=== PATIENT | male | born 1935 ===

== ENCOUNTER 2017-01-30 18:56 | Inpatient (IN) | payer MEDICARE ==
[2017-01-30 19:48] LABS: BASO # 0.1 K/uL (0.0-0.2); BASO % 0.3 % (0.0-2.0); HEMATOCRIT 47.2 % (35.0-51.0); LYMPH # 0.5 K/uL (1.0-4.3); LYMPH % 2.7 % (20.0-40.0); MEAN CELL VOLUME 90.6 fl (80.0-94.0); MEAN CORPUSCULAR HEMOGLOBIN 30.2 pg (27.0-31.0); MEAN CORPUSCULAR HGB CONC 33.3 g/dL (33.0-37.0); MEAN PLATELET VOLUME 9.5 fl (7.2-11.7); MONO % 5.1 % (0.0-10.0); NEUT # 18.2 K/uL (1.8-7.0); NEUT % 91.9 % (50.0-75.0); PLATELET COUNT 253 K/uL (130-400); RED CELL DISTRIBUTION WIDTH 15.1 % (11.5-14.5); WHITE BLOOD COUNT 19.8 K/uL (4.8-10.8)
[2017-01-30 19:49] LABS: RBC URINE 6 /hpf (0-3); URINE BACTERIA RARE (<OCC); URINE BILIRUBIN NEGATIVE (NEGATIVE); URINE BLOOD SMALL (NEGATIVE); URINE COLOR YELLOW (YELLOW); URINE GLUCOSE (UA) >=500 mg/dL (Normal); URINE KETONE 80 mg/dL (NEGATIVE); URINE LEUKOCYTE ESTERASE NEG Leu/uL (Negative); URINE PROTEIN 100 mg/dL (NEGATIVE); URINE UROBILINOGEN 0.2-1.0 mg/dL (0.2-1.0); WBC URINE 2 /hpf (0-5)
[2017-01-30 19:54] LABS: ALKALINE PHOSPHATASE 96 U/L (38-126); ALT/SGPT 29 U/L (21-72); AST/SGOT 41 U/L (17-59); BLOOD UREA NITROGEN 31 mg/dl (9-20); CALCIUM 8.9 mg/dL (8.4-10.2); CARBON DIOXIDE 25 mmol/L (22-30); CHLORIDE 95 mmol/L (98-107); GFR AFRICAN-AMERICAN > 60; POTASSIUM 3.7 MMOL/L (3.6-5.0); SODIUM 141 mmol/l (132-148); TOTAL PROTEIN 7.9 G/DL (6.3-8.2)
[2017-01-30 19:56] LABS: GLUCOSE,RANDOM 432 mg/dL (75-110)
[2017-01-30] MEDS ORDERED: Insulin Regular 100 units/ml ONE (20:01)
[2017-01-30] MEDS ORDERED: Sodium Chloride 0.9% 500 ML IV STA (20:03)
[2017-01-30] MEDS ORDERED: Insulin Regular 100 units/ml IV ONE (20:03)
[2017-01-30 20:23] LABS: PARTIAL THROMBOPLASTIN TIME 28.3 SECONDS (23.3-32.5)
[2017-01-30 20:29] LABS: NEUTROPHIL 93 % (42-75); REACTIVE LYMPHOCYTES 1 % (0-0); TOTAL CELLS COUNTED 100
--- NOTE | 2017-01-30 20:29 | ED PDOC ---
HPI: Back Time Seen by Provider: 01/30/17 19:15 Chief Complaint (Nursing): Back Pain Chief Complaint (Provider): Back Pain History Per: Patient, EMS History/Exam Limitations: no limitations Onset/Duration Of Symptoms: Days (today) Current Symptoms Are (Timing): Still Present Quality Of Discomfort: Unable To Describe Severity: Moderate Associated Symptoms: None Additional Complaint(s): Duong Gutierrez is a 81 year old male, with a past medical history inclusive of HTN, hypercholesterolemia, hyperlipidemia, type II diabetes, Parkinson's Disease, dementia, and bipolar disorder who presents to the ED on 01/30/17, via EMS, for the evaluation of moderate, left-sided low back pain that he has experienced since having fallen out of his recliner approximately 18 hours prior to arrival. Patient reports having fallen onto his left side and that he had been unable to get up on his own, stating that he was on the ground until his ex- found him 2 hours ago and called EMS, who then responded 1 hour later. Upon arrival in the ED patient is ambulatory and is requesting a meal. Denies head injury, loss of consciousness, fever, chills, chest pain, shortness of breath, nausea, vomiting or diarrhea. Of note, patient lives alone and ambulates with a cane at baseline. Otherwise he is independent. PMD: Misael Tenorio Past Medical History Reviewed: Historical Data, Nursing Documentation, Vital Signs Vital Signs: Last Vital Signs Temp 98.1 F 01/30/17 19:00 Pulse 107 H 01/30/17 19:00 Resp 20 01/30/17 19:00 BP 158/90 H 01/30/17 19:00 Pulse Ox 99 01/30/17 19:00 - Medical History PMH: Anxiety, Benign Prostatic Hyperplasia, Bipolar Disorder, Dementia, Depression, Diabetes (type II), HTN, Hypercholesterolemia, Hyperlipidemia, Parkinson's Disease Denies: Hepatitis, HIV, Chronic Kidney Disease, Seizures, Sexually Transmitted Disease - Family History Family History: States: Unknown Family Hx - Living Arrangements Living Arrangements: Alone - Immunization History Hx Tetanus Toxoid Vaccination: No Hx Influenza Vaccination: Yes Hx Pneumococcal Vaccination: No - Home Medications Home Medications: Ambulatory Orders Medication Instructions Recorded Famotidine [Pepcid] 20 mg PO HS #20 tab 06/03/14 Allopurinol 100 mg PO DAILY #14 tab 11/14/14 Carbidopa/Levodopa 25/100 CR 25 mg PO QID #28 tab 11/14/14 [Sinemet CR] Rivastigmine 9.5 mg/24 hr [Exelon 9.5 mg TD DAILY #14 patch 11/14/14 9.5 mg/24 hr Patch] Valsartan 160 mg PO DAILY #14 tab 11/14/14 metFORMIN [glucOPHAGE] 850 mg PO DAILY #0 tab 11/14/14 Aspirin [Aspirin EC] 81 mg PO DAILY #14 ect 12/06/14 Atorvastatin Calcium [Lipitor] 20 mg PO HS #14 tab 12/06/14 Colchicine 0.6 mg PO DAILY #14 tab 12/06/14 Tamsulosin [Flomax] 0.4 mg PO DAILY #14 cap 12/06/14 Valsartan [Diovan] 160 mg PO DAILY #14 tab 12/06/14 amLODIPine [Norvasc] 5 mg PO DAILY #14 tab 12/06/14 traZODone [Desyrel] 50 mg PO HS #14 tab 12/06/14 Divalproex [Depakote DR (*BID*)] 250 mg PO BID #60 ect 01/13/17 Ergocalciferol [Drisdol 50,000 1 cap PO QWK cap 01/13/17 Intl Units Cap] QUEtiapine [Seroquel] 100 mg PO HS #30 tab 01/13/17 - Allergies Allergies/Adverse Reactions: Allergies Allergy/AdvReac Type Severity Reaction Status Date / Time No Known Allergies Allergy Unverified 06/03/14 12:27 Review of Systems ROS Statement: Except As Marked, All Systems Reviewed And Found Negative Constitutional: Negative for: Fever, Chills Cardiovascular: Negative for: Chest Pain Respiratory: Negative for: Shortness of Breath Gastrointestinal: Negative for: Nausea, Vomiting, Diarrhea Musculoskeletal: Positive for: Back Pain (left-sided low back pain) Neurological: Negative for: Altered Mental Status (no LOC) Physical Exam - Reviewed Nursing Documentation Reviewed: Yes Vital Signs Reviewed: Yes - Physical Exam Appears: Positive for: Non-toxic, No Acute Distress Head Exam: Positive for: ATRAUMATIC, NORMOCEPHALIC Skin: Positive for: Normal Color, Warm, Dry Neck: Positive for: Normal, Painless ROM, Supple Cardiovascular/Chest: Positive for: Regular Rate, Rhythm. Negative for: Murmur Respiratory: Positive for: Normal Breath Sounds. Negative for: Respiratory Distress Gastrointestinal/Abdominal: Positive for: Normal Exam, Soft. Negative for: Tenderness Back: Positive for: Other (mild left paralumbar tenderness (region of L4-L5)). Negative for: Vertebral Tenderness Extremity: Positive for: Normal ROM (moving all extremities). Negative for: Deformity Neurologic/Psych: Positive for: Alert, Oriented. Negative for: Motor/Sensory Deficits (no new onset) - Laboratory Results Result Diagrams: 01/31/17 05:30 01/31/17 05:30 - ECG O2 Sat by Pulse Oximetry: 99 (RA) Pulse Ox Interpretation: Normal - Radiology X-Ray: Interpreted by Me, Viewed By Me X-Ray Interpretation: No Acute Disease - CT Scan/US CT Lumbar Spine Other Rad Studies (CT/US): Read By Radiologist, Radiology Report Reviewed Other Rad Interpretation: mild degenerative change, no fracture Medical Decision Making Medical Decision Makin:15 Initial Impression: 81 year old male with low back pain in setting of fall Initial Plan: * CT Lumbar Spine w/o contrast * Labs * CPK * PTT * PT * Udip * Urinalysis * Reevaluation 21:16 CT Lumbar Spine report reviewed: degenerative change, no fracture. See full report for further details of study. 22:17 Labs reviewed, no clinically significant abnormalities though CK level is moderately elevated, possibly indicative of early/mild rhabdomyolysis. Patient is also mildly hyperglycemic, probably secondary to his inability to take his insulin since fall. Blood sugar improved with administration of IV hydration and Insulin within the ED. Leukocytosis with left shift also noted. Upon interview patient denies fever but reports having experienced a cough last week. CXR added to ED workup shows no acute disease. Given multiple mild derangements in laboratory studies patient will be hospitalized on Observation status. His PMD is Dr. Ming Tenorio, but case has been referred to Dr. Bauer. Plan has been discussed with patient, who is in agreement. Condition fair. Clinical Impression: mild rhabdomyolysis, leukocytosis, hyperglycemia Scribe Attestation: Documented by Viv Mcgill, acting as a scribe for Evan Oconnor MD. Provider Scribe Attestation: All medical record entries made by the Scribe were at my direction and personally dictated by me. I have reviewed the chart and agree that the record accurately reflects my personal performance of the history, physical exam, medical decision making, and the department course for this patient. I have also personally directed, reviewed, and agree with the discharge instructions and disposition. Disposition - Clinical Impression Clinical Impression: Elevated lactic acid level, Hyperglycemia, Dementia, Low back pain, Rhabdomyolysis - Patient ED Disposition Is Patient to be Admitted: Yes Discussed With DrMihaela: Dex Bauer Counseled Patient/Family Regarding: Studies Performed, Diagnosis - Disposition Disposition Time: 22:17 Condition: STABLE - Pt Status Changed To: Hospital Disposition Of: Observation
--- NOTE | 2017-01-30 21:16 | CT ---
EXAM: CT Lumbar Spine Without Intravenous Contrast. CLINICAL HISTORY: 81 years old, male; Pain; Low back pain TECHNIQUE: Axial computed tomography images of the lumbar spine without intravenous contrast. This CT exam was performed using one or more of the following dose reduction techniques: automated exposure control, adjustment of the mA and/or kV according to patient size, and/or use of iterative reconstruction technique. Coronal and sagittal reformatted images were created and reviewed. EXAM DATE/TIME: 01/30/2017 7:53 PM COMPARISON: There are no prior studies for comparison. FINDINGS: Vertebrae, discs/spinal canal/neural foramina: Bony structures are osteopenic. There is a degenerative convex right lumbar curve apex at L2-3. There are no lumbar fractures. T11-12, T12-L1 and L1-L2 disc spaces are normal in height. There is narrowing of the L2-3 disc space greatest on the left. There is endplate irregularity with subchondral cysts. There are bulky osteophytes L2-3 on the left. There is degenerative disc disease L3-4 with vacuum phenomenon. There is asymmetric disc space narrowing L4-5 greatest on the right. There is marked L5-S1 disc space narrowing. There are degenerative osteophytes at multiple levels. There is degenerative facet disease greatest L3-4, L4-5.. There is sclerosis at the sacroiliac joints. There is partial ankylosis of the right sacroiliac joint. Soft tissues: Psoas and paraspinous muscles are symmetric. Vasculature: There are vascular calcifications. Stomach and bowel: There is a radiopaque foreign body stool in the rectum. IMPRESSION: Degenerative change, no fracture
[2017-01-30] MEDS: Sodium Chloride 0.9% 1,000 ML IV STA (22:50)
--- NOTE | 2017-01-30 22:52 | CP.PCM.HP ---
History of Present Illness - History of Present Illness History of Present Illness: PCP: Ming Tenorio MD Chief complaint: fall/ Back trauma HPI: 81 years old male who lives alone and uses a cane to ambulate, with hx of DM II, Bipolar I disorder, dementia, Unsteady gait, Multiple falls with Parkinson's disease is brought to the ED after falling off his his recliner 18 hrs prior,and could not get up, receiving trauma to the left lower back. The pain is moderate , non radiating and the patient did not take any analgesics. his ex was able to assist him off the floor. He denies LOC, headache, dizziness, fever, chills, Chest pain, palpitation, SOB, nausea, vomits, diarrhea , urinary symptoms. PMH: Anxiety, BPH, Bipolar 1 Disorder, Dementia, Depression, HTN, HLD, Parkinson's Disease, Multiple falls, Unsteady gait, gout. PSH: Unknown Family Hx SH: lives alone, No cigarette smoking; No ETOH: No Illegal drugs. FH: No known familu History Allergies: NKDA - Present on Admission - Present on Admission Any Indicators Present on Admission: Yes History of DVT/PE: No History of Uncontrolled Diabetes: Yes Urinary Catheter: No Decubitus Ulcer Present: No Review of Systems - Constitutional Constitutional: Lethargy. absent: Anorexia, Chills, Fatigue, Fever, Frequent Falls, Headache - EENT Eyes: Requires Corrective Lenses. absent: Diplopia, Floaters, Photophobia, Sees Flashes Ears: absent: Decreased Hearing, Ear Discharge, Ear Pain, Tinnitus Nose/Mouth/Throat: absent: Epistaxis, Nasal Congestion, Nasal Discharge, Nose Pain, Sinus Pain, Sinus Pressure, Sore Throat - Cardiovascular Cardiovascular: absent: Dyspnea, Lightheadedness, Orthopnea - Respiratory Respiratory: absent: Cough, Dyspnea, Wheezing - Gastrointestinal Gastrointestinal: absent: Abdominal Pain, Constipation, Diarrhea, Nausea, Vomiting - Genitourinary Genitourinary: absent: Dysuria, Flank Pain, Hematuria, Urinary Frequency, Freq UTI - Musculoskeletal Musculoskeletal: absent: Arthralgias, Deformity, Muscle Cramps, Myalgias, Neck Pain, Numbness - Integumentary Integumentary: absent: Pruritus, Rash, Skin Ulcer, Sores, Striae, Swelling - Neurological Neurological: Abnormal Gait, Syncope. absent: Confusion, Dizziness, Loss of Vision, Tremor, Weakness - Psychiatric Psychiatric: Anxiety, Depression. absent: Confusion, Memory Loss, Panic Attacks - Endocrine Endocrine: absent: Palpitations, Polydipsia, Polyphagia, Polyuria - Hematologic/Lymphatic Hematologic: absent: Easy Bleeding, Easy Bruising Past Patient History - Infectious Disease Hx of Infectious Diseases: None - Tetanus Immunizations Tetanus Immunization: Unknown - Past Medical History & Family History Past Medical History?: Yes - Past Social History Smoking Status: Never Smoked Chewing Tobacco Use: No Cigar Use: No Alcohol: None Drugs: Denies Home Situation {Lives}: Alone - CARDIAC Hx Hypercholesterolemia: Yes Hx Hypertension: Yes - PULMONARY Hx Respiratory Disorders: No - NEUROLOGICAL Hx Dementia: Yes Hx Parkinson's Disease: Yes Hx Seizures: No - HEENT Hx HEENT Problems: No - RENAL Hx Chronic Kidney Disease: No - ENDOCRINE/METABOLIC Hx Diabetes Mellitus Type 2: Yes - HEMATOLOGICAL/ONCOLOGICAL Hx Blood Disorders: No Hx Human Immunodeficiency Virus (HIV): No - INTEGUMENTARY Hx Dermatological Problems: No - MUSCULOSKELETAL/RHEUMATOLOGICAL Hx Falls: Yes Hx Gout: Yes Hx Unsteady Gait: Yes - GASTROINTESTINAL Hx Gastrointestinal Disorders: No - GENITOURINARY/GYNECOLOGICAL Hx Sexually Transmitted Disorders: No - PSYCHIATRIC Hx Anxiety: Yes Hx Bipolar Disorder: Yes Hx Depression: Yes - SURGICAL HISTORY Hx Surgeries: No - ANESTHESIA Hx Anesthesia: No Meds Allergies/Adverse Reactions: Allergies Allergy/AdvReac Type Severity Reaction Status Date / Time No Known Allergies Allergy Unverified 06/03/14 12:27 Physical Exam - Constitutional Appears: No Acute Distress - Head Exam Head Exam: ATRAUMATIC, NORMAL INSPECTION, NORMOCEPHALIC - Eye Exam Eye Exam: EOMI, Normal appearance Pupil Exam: NORMAL ACCOMODATION, PERRL - ENT Exam ENT Exam: Mucous Membranes Moist, Normal Exam, Normal External Ear Exam, Normal Oropharynx - Neck Exam Neck exam: Positive for: Full Rom, Normal Inspection. Negative for: Lymphadenopathy, Tenderness - Respiratory Exam Respiratory Exam: Clear to Auscultation Bilateral. absent: Rales, Rhonchi, Wheezes - Cardiovascular Exam Cardiovascular Exam: REGULAR RHYTHM, RRR, +S1, +S2. absent: Gallop, JVD - GI/Abdominal Exam GI & Abdominal Exam: Normal Bowel Sounds, Soft. absent: Organomegaly, Tenderness - Rectal Exam Rectal Exam: Deferred - Extremities Exam Extremities exam: Positive for: full ROM, normal inspection. Negative for: calf tenderness, pedal edema Additional comments: left lower back pain - Back Exam Back exam: NORMAL INSPECTION. absent: CVA tenderness (L), CVA tenderness (R) - Neurological Exam Neurological exam: Alert, CN II-XII Intact, Normal Gait, Oriented x3 - Psychiatric Exam Psychiatric exam: Normal Affect, Normal Mood - Skin Skin Exam: Dry, Intact, Normal Color, Warm Results - Vital Signs Recent Vital Signs: Last Vital Signs Temp 98.1 F 01/30/17 19:00 Pulse 86 01/30/17 21:42 Resp 20 01/30/17 19:00 BP 158/90 H 01/30/17 19:00 Pulse Ox 99 01/30/17 22:30 - Labs Result Diagrams: 01/30/17 23:16 01/30/17 19:25 - Imaging and Cardiology CT Lumbar spine Status: Report reviewed by me Additional comment: FINDINGS: Vertebrae, discs/spinal canal/neural foramina: Bony structures are osteopenic. There is a degenerative convex right lumbar curve apex at L2-3. There are no lumbar fractures. T11-12, T12- L1 and L1-L2 disc spaces are normal in height. There is narrowing of the L2-3 disc space greatest on the left. There is endplate irregularity with subchondral cysts. There are bulky osteophytes L2-3 on the left. There is degenerative disc disease L3-4 with vacuum phenomenon. There is asymmetric disc space narrowing L4-5 greatest on the right. There is marked L5-S1 disc space narrowing. There are degenerative osteophytes at multiple levels. There is degenerative facet disease greatest L3-4, L4-5.. There is sclerosis at the sacroiliac joints. There is partial ankylosis of the right sacroiliac joint. Soft tissues: Psoas and paraspinous muscles are symmetric. Vasculature: There are vascular calcifications. Stomach and bowel: There is a radiopaque foreign body stool in the rectum. IMPRESSION: Degenerative change, no fracture Assessment & Plan - Assessment and Plan (Free Text) Assessment: #. fall with Back Contusion #. Dehydration #. Diabetes Uncontrolled with Hyperglycemia #. Leukocytosis reactive #.HTN #. Bipolar 1 disorder #. Parkinson's disease #. BPH Plan: 81 years old male who lives alone and uses a cane to ambulate, with hx of DM II , Bipolar I disorder, dementia, Unsteady gait, Multiple falls with Parkinson's disease is brought to the ED after falling off his his recliner 18 hrs prior, and could not get up, receiving trauma to the left lower back. The pain is moderate , non radiating and the patient did not take any analgesics. his ex was able to assist him off the floor. He denies LOC, headache, dizziness, fever, chills, Chest pain, palpitation, SOB, nausea, vomits, diarrhea, urinary symptoms. #. fall with Back Contusion - Pain management with tramadol/tylenol #. Dehydration - IV Fluid NS at 125mls/hr - Follow Renal labs #. Diabetes Uncontrolled with Hyperglycemia - Diabetic Diet - Regular insulin sliding scale according to Accucheck - Metformin #. Leukocytosis reactive - follow WBC #.HTN uncontroled - Diovan/Amlodipine #. Bipolar 1 disorder - Psychiatric medications #. DVT Prophylaxis with Lovenox. #. Code Status: Full - Date & Time Date: 01/30/17 Time: 22:52
[2017-01-30 23:20] LABS: BASO # 0.1 K/uL (0.0-0.2); BASO % 0.4 % (0.0-2.0); HEMATOCRIT 43.6 % (35.0-51.0); LYMPH # 0.9 K/uL (1.0-4.3); LYMPH % 4.2 % (20.0-40.0); MEAN CELL VOLUME 90.7 fl (80.0-94.0); MEAN CORPUSCULAR HEMOGLOBIN 29.4 pg (27.0-31.0); MEAN CORPUSCULAR HGB CONC 32.4 g/dL (33.0-37.0); MEAN PLATELET VOLUME 9.7 fl (7.2-11.7); MONO # 2.9 K/uL (0.0-0.8); MONO % 14.3 % (0.0-10.0); NEUT # 16.6 K/uL (1.8-7.0); NEUT % 81.1 % (50.0-75.0); RED CELL DISTRIBUTION WIDTH 14.9 % (11.5-14.5); WHITE BLOOD COUNT 20.5 K/uL (4.8-10.8)
[2017-01-31] MEDS: Sodium Chloride 0.9% 1,000 ML IV STA (00:36)
[2017-01-31] MEDS: Sodium Chloride 0.9% 1,000 ML IV SCH ×14 (00:45→16:16)
[2017-01-31] MEDS: Insulin Regular 100 units/ml SC SCH ×4 (06:33→22:53)
--- NOTE | 2017-01-31 06:43 | RAD ---
HISTORY: admit COMPARISON: 11/30/2014 TECHNIQUE: Chest PA and lateral FINDINGS: LUNGS: 3 millimeter nodule in the right upper lung zone. New since prior examination. Recommend CT scan. PLEURA: No significant pleural effusion identified. No pneumothorax apparent. CARDIOVASCULAR: Normal. OSSEOUS STRUCTURES: No significant abnormalities. VISUALIZED UPPER ABDOMEN: Normal. OTHER FINDINGS: None. IMPRESSION: 3 millimeter nodule in the right upper lung zone. New since prior examination. Recommend CT scan.
[2017-01-31 08:07] LABS: BLOOD UREA NITROGEN 42 mg/dl (9-20); CALCIUM 8.3 mg/dL (8.4-10.2); CARBON DIOXIDE 26 mmol/L (22-30); CHLORIDE 98 mmol/L (98-107); GFR AFRICAN-AMERICAN > 60; GLUCOSE,RANDOM 165 mg/dL (75-110); POTASSIUM 3.3 MMOL/L (3.6-5.0); SODIUM 140 mmol/l (132-148)
[2017-01-31 08:17] LABS: BASO # 0.1 K/uL (0.0-0.2); BASO % 0.4 % (0.0-2.0); EOS % 0.1 % (0.0-4.0); HEMATOCRIT 41.3 % (35.0-51.0); LYMPH # 1.4 K/uL (1.0-4.3); LYMPH % 8.5 % (20.0-40.0); MEAN CELL VOLUME 90.1 fl (80.0-94.0); MEAN CORPUSCULAR HGB CONC 32.2 g/dL (33.0-37.0); MEAN PLATELET VOLUME 10.1 fl (7.2-11.7); MONO # 1.8 K/uL (0.0-0.8); MONO % 10.6 % (0.0-10.0); NEUT # 13.7 K/uL (1.8-7.0); NEUT % 80.4 % (50.0-75.0); RED CELL DISTRIBUTION WIDTH 15.2 % (11.5-14.5); WHITE BLOOD COUNT 17.1 K/uL (4.8-10.8)
[2017-01-31] MEDS ORDERED: COLCHICINE 0.6 MG PO SCH (09:00)
[2017-01-31] MEDS ORDERED: ALLOPURINOL 100 MG PO SCH (09:00)
[2017-01-31] MEDS ORDERED: VALSARTAN 160 MG PO SCH (09:00)
[2017-01-31] MEDS: Ergocalciferol 50,000 Intl Units Cap PO SCH (10:35)
[2017-01-31] MEDS: Divalproex 250 mg DR(BID formulation) PO SCH ×2 (10:35→16:24)
[2017-01-31] MEDS: Carbidopa/Levodopa 25/100 CR PO SCH ×4 (10:35→21:05)
[2017-01-31] MEDS ORDERED: Potassium Chloride 20 mEq/15 ml LIQ UD PO ONE (15:00)
--- NOTE | 2017-01-31 15:31 | CP.PCM.PN ---
Subjective - Date & Time of Evaluation Date of Evaluation: 01/21/17 Time of Evaluation: 14:30 - Subjective Subjective: Patient was seen and examined bedside. Elderly male of stated age lying in bed in NAD. Complains of lower back pain. Hemodynamicalluy stable, afebrile. With dementia and very flirtatious . Denies ay abdominal pain , dysuria, fever , chills,nausea, vomiting BP 157/85 HR 85 WBC 17K BUN/Cr 31/1.0 CPK 419 lactic acid 1.1 after hydration Objective - Vital Signs/Intake and Output Vital Signs (last 24 hours): Temp Pulse Resp BP Pulse Ox 98.1 F 85 20 157/85 H 96 01/30/17 19:00 01/31/17 10:36 01/31/17 01:36 01/31/17 10:36 01/31/17 01:36 - Medications Medications: Current Medications Acetaminophen (Tylenol 325mg Tab) 650 mg PO Q4 PRN PRN Reason: Pain, Mild (1-3) Allopurinol (Zyloprim) 100 mg PO DAILY [facility] Last Admin: 01/31/17 10:35 Dose: 100 mg Amlodipine Besylate (Norvasc) 5 mg PO DAILY [facility] Last Admin: 01/31/17 10:36 Dose: 5 mg Aspirin (Ecotrin) 81 mg PO DAILY [facility] Last Admin: 01/31/17 10:42 Dose: 81 mg Atorvastatin Calcium (Lipitor) 20 mg PO HS [facility] Carbidopa/Levodopa (Sinemet Cr) 1 tab PO QID [facility] Last Admin: 01/31/17 13:05 Dose: 1 tab Colchicine (Colocrys) 0.6 mg PO DAILY [facility] Last Admin: 01/31/17 13:06 Dose: 0.6 mg Divalproex Sodium (Depakote Dr(*Bid*)) 250 mg PO BID [facility] Last Admin: 01/31/17 10:35 Dose: 250 mg Ergocalciferol (Drisdol 50,000 Intl Units Cap) 1 cap PO QWK [facility] Last Admin: 01/31/17 10:35 Dose: 1 cap Famotidine (Pepcid) 20 mg PO HS [facility] Sodium Chloride (Sodium Chloride 0.9%) 1,000 mls @ 1,000 mls/hr IV .Q1H [facility] Stop: 01/31/17 23:46 Last Admin: 01/31/17 13:09 Dose: Not Given Sodium Chloride (Sodium Chloride 0.9%) 1,000 mls @ 125 mls/hr IV .Q8H [facility] Stop: 02/01/17 08:01 Last Admin: 01/31/17 10:45 Dose: Not Given Insulin Human Regular (Humulin R) 0 units SC ACHS [facility] PRN Reason: Protocol Last Admin: 01/31/17 12:05 Dose: 3 units Metformin HCl (Glucophage) 850 mg PO DAILY [facility] Last Admin: 01/31/17 10:36 Dose: 850 mg Quetiapine Fumarate (Seroquel) 100 mg PO HS [facility] Rivastigmine (Exelon 9.5 Mg/24 Hr Patch) 1 patch TD DAILY [facility] Last Admin: 01/31/17 10:42 Dose: 1 patch Tamsulosin HCl (Flomax) 0.4 mg PO DAILY [facility] Last Admin: 01/31/17 10:42 Dose: 0.4 mg Tramadol HCl (Ultram) 50 mg PO Q4 PRN PRN Reason: Pain (4 - 10) Valsartan (Diovan) 160 mg PO DAILY [facility] Last Admin: 01/31/17 10:34 Dose: 160 mg - Labs Labs: 01/31/17 05:30 01/31/17 05:30 PT 12.4 SECONDS (9.6-11.2) H 01/30/17 19:25 INR 1.19 (0.92-1.08) H 01/30/17 19:25 APTT 28.3 SECONDS (23.3-32.5) 01/30/17 19:25 - Constitutional Appears: Non-toxic, No Acute Distress - Head Exam Head Exam: ATRAUMATIC, NORMAL INSPECTION, NORMOCEPHALIC - Eye Exam Eye Exam: EOMI, Normal appearance, PERRL Pupil Exam: NORMAL ACCOMODATION - ENT Exam ENT Exam: Mucous Membranes Moist, Normal Exam - Neck Exam Neck Exam: Full ROM, Normal Inspection - Respiratory Exam Respiratory Exam: Clear to Ausculation Bilateral, NORMAL BREATHING PATTERN. absent: Rales, Rhonchi, Wheezes - Cardiovascular Exam Cardiovascular Exam: REGULAR RHYTHM, RRR, +S1, +S2. absent: JVD - GI/Abdominal Exam GI & Abdominal Exam: Soft, Normal Bowel Sounds. absent: Distended, Guarding, Tenderness, Rebound - Rectal Exam Rectal Exam: Deferred - Extremities Exam Extremities Exam: Full ROM, Normal Capillary Refill, Normal Inspection. absent : Pedal Edema - Back Exam Back Exam: NORMAL INSPECTION - Neurological Exam Neurological Exam: Alert, Awake Additional comments: with dementia oriented to place and person - Psychiatric Exam Additional comments: with labile emotional state manic to depressive - Skin Skin Exam: Dry, Normal Color, Warm Assessment and Plan - Assessment and Plan (Free Text) Assessment: 81 years old male who lives alone and uses a walker to ambulate, with hx of DM II, Bipolar I disorder, dementia, Unsteady gait, Multiple falls with Parkinson' s disease is brought to the ED after falling off his recliner 18 hrs prior ? and could not get up, receiving trauma to the left lower back. The pain is moderate , non radiating and the patient did not take any analgesics. His ex was able to assist him off the floor. He denies LOC, headache, dizziness, fever, chills, Chest pain, palpitation, SOB, nausea, vomits, diarrhea, urinary symptoms.Imaging of lower back showed no acute fracture. 1. Fall with Back Contusion CT back showed no acute fracture patient will need PT/OT eval due to his long history of gait instability and Parkinsonism SW/ case management eval for safe discharge planning/. Patient will need home visiting nurse and home health aid services Continue pain management with tramadol/tylenol PRN 2. Dehydration Continue IVF 3. Diabetes Uncontrolled with Hyperglycemia Diabetic Diet Regular insulin sliding scale according to Accucheck Metformin 4. Leukocytosis reactive patient is afebrile CXR and UA shows no sign of infection lactic acid trended down to normal ( 1.1) after hydration 5.HTN [place] On Diova and Amlodipine 6. Bipolar 1 disorder Continue Psychiatric medications 7. DVT Prophylaxis with Lovenox.
[2017-02-01] MEDS: Sodium Chloride 0.9% 1,000 ML IV SCH ×2 (03:34→09:20)
[2017-02-01] MEDS: Insulin Regular 100 units/ml SC SCH ×4 (06:47→21:59)
[2017-02-01 07:04] LABS: HEMATOCRIT 38.5 % (35.0-51.0); MEAN CELL VOLUME 90.3 fl (80.0-94.0); MEAN CORPUSCULAR HEMOGLOBIN 29.7 pg (27.0-31.0); MEAN CORPUSCULAR HGB CONC 32.9 g/dL (33.0-37.0); RED CELL DISTRIBUTION WIDTH 15.1 % (11.5-14.5); WHITE BLOOD COUNT 10.3 K/uL (4.8-10.8)
[2017-02-01 07:18] LABS: BLOOD UREA NITROGEN 25 mg/dl (9-20); CARBON DIOXIDE 26 mmol/L (22-30); CHLORIDE 105 mmol/L (98-107); GFR AFRICAN-AMERICAN > 60; GLUCOSE,RANDOM 149 mg/dL (75-110); POTASSIUM 3.6 MMOL/L (3.6-5.0); SODIUM 144 mmol/l (132-148)
[2017-02-01] MEDS: Divalproex 250 mg DR(BID formulation) PO SCH ×2 (09:18→17:25)
[2017-02-01] MEDS: Carbidopa/Levodopa 25/100 CR PO SCH ×4 (09:18→21:53)
--- NOTE | 2017-02-01 15:01 | CP.PCM.PN ---
Subjective - Date & Time of Evaluation Date of Evaluation: 02/01/17 Time of Evaluation: 23:15 - Subjective Subjective: Hospitalist Progress Note (Patient was seen and examined at 11:15 AM 02/01/17 660 -2) 81 year old male (PMHx of Dementia, Bipolar Disorder, DM 2, HTN, Parkinson's Disease, Gout) who was admitted on 01/30/17 for further evaluation after he was found on the floor at his residence (where he lives by himself) by his ex- after he had fell out of his recliner. Patient stated that there was NO loss of consciousness and he has been experiencing nonradiating low back pain. CT Lumbar Spine 01/30/17 showed degenerative changs. Chest X Ray 01/30/17 showed Right Upper Lung zone 3mm nodule. He had elevated Lactic Acid upon admisstion but this normalized by 01/31/17. He had elevated CPK 419 but this declined to 343 with administration of IVF. He had Leukocytosis but this has normalized. Please note that this patient was ready for discharge. However, Daughter Coleen Weathers [phone] contacted [employer]be[employer] Jeaneth [phone], who provided me with Coleen's contact information. Coleen explains that the patient was living with her since his discharge from [facility] on 01/13/17 (he was admitted on 01/07/17 for Bipolar Disorder). However, Coleen states that it became increasingly hard for her to take care of the patient as he started to become aggressive towards her and her family, turning off her 's pacemaker, at times not recognizing Coleen or his grandchildren, disturbing the neighbors by calling them and asking them to order things for him online. Therefore Coleen moved patient back to his apartment and mart's ex- checks up on him and has at times noticed that he has left the stove on. Coleen states that her 80 year old mother, her brother, and she can not care for patient and Coleen's feels that patient is not able to care for himself. Please note that this information/ concerns were not revealed to the medicine team upon his admission. Therefore Psychiatry Consult has been requested, patient will be changed over from Observation to Admission, [facility] Jeaneth has been notified, and CT Head w/o Contrast has been ordered. Will this patient need to placement? Will this patient need in-patient Psychiatry treatment? Will this patient require evaluation by Adult Protective Services? At the time that I saw this patient which was at 11:15 AM he had NO complaints upon FULL ROS. "I am about to be 82 years old and I have never felt better" NO chest pain, NO palpitations, NO SOB/Cough/Wheezing, NO dysphagia/odynophagia , NO abdominal pain, NO n/v/d/c, NO burning/pain with urination, NO lightheadedness/dizziness, NO new changes in vision/eye pain, NO new changes in hearing/ear pain, NO paresthesias, NO edema HEENT: NCA, PERRLA, EOMI, NO cervical lymphadenopathy, NO thyromegaly, NO Pharyngeal erythema/exudate Cardio: NS1 and NS2, NO M/R/G Respiratory: CTA B/L, NO R/R/W GI: BSx4, Soft, NT, ND, NO HSM, NO guarding/rebound tenderness Ext: NO edema, Pulses are strong and equal, Capillary refill is 2 seconds Neuro: CN II through XII are grossly intact Assessment and Plan: 1). S/P Fall PT/OT F/U CT Head without contrast 2). Dehydration Resolved BUN/Cr improved to 25/0.8 3). Rhabdomyolysis F/U repeat CPK 02/02/17 4). Leukocytosis Resolved WBC 10.3 today 5). DM 2 Controlled RISS Metformin 850 mg PO 1x/day 6). HTN Controlled Norvasc 5 mg PO 1x/day Diovan 160 mg PO 1x/day 7). HLD Lipitor 20 mg PO QHS 8). Bipolar Disorder Seroquel 100 mg PO QHS 9). Parkinson's Disease/Dementia Rivastigmine 1 Patch TD 1x/day Sinemet 1 tab PO 4x/day Depakote 250 mg PO 2x/day 10). Gout Allopurinol 100 mg PO 1x/day Colcrys 0.6 mg PO 1x/day 11). Prophylactic Measures Tylenol 650 mg PO Q4H PRN Pain 1-3 Tramadol 50 mg PO Q4H PRN Pain 4-10 ASA 81 mg PO 1x/day Vit D 50,000 1 Cap once/week Pepcid 20 mg PO QHS Flomax 04 mg PO 1x/day Trazodone 50 mg PO QHS Objective - Vital Signs/Intake and Output Vital Signs (last 24 hours): Temp Pulse Resp BP Pulse Ox 98.3 F 67 20 121/63 95 01/31/17 22:00 02/01/17 09:19 01/31/17 22:00 02/01/17 09:19 01/31/17 22:00 - Medications Medications: Current Medications Acetaminophen (Tylenol 325mg Tab) 650 mg PO Q4 PRN PRN Reason: Pain, Mild (1-3) Last Admin: 02/01/17 06:37 Dose: 650 mg Allopurinol (Zyloprim) 100 mg PO DAILY [facility] Last Admin: 02/01/17 09:18 Dose: 100 mg Amlodipine Besylate (Norvasc) 5 mg PO DAILY [facility] Last Admin: 02/01/17 09:19 Dose: 5 mg Aspirin (Ecotrin) 81 mg PO DAILY [facility] Last Admin: 02/01/17 09:19 Dose: 81 mg Atorvastatin Calcium (Lipitor) 20 mg PO HS [facility] Last Admin: 01/31/17 21:05 Dose: 20 mg Carbidopa/Levodopa (Sinemet Cr) 1 tab PO QID [facility] Last Admin: 02/01/17 12:29 Dose: 1 tab Colchicine (Colocrys) 0.6 mg PO DAILY [facility] Last Admin: 02/01/17 09:20 Dose: 0.6 mg Divalproex Sodium (Depakote Dr(*Bid*)) 250 mg PO BID [facility] Last Admin: 02/01/17 09:18 Dose: 250 mg Ergocalciferol (Drisdol 50,000 Intl Units Cap) 1 cap PO QWK [facility] Last Admin: 01/31/17 10:35 Dose: 1 cap Famotidine (Pepcid) 20 mg PO HS [facility] Last Admin: 01/31/17 21:04 Dose: 20 mg Insulin Human Regular (Humulin R) 0 units SC ACHS [facility] PRN Reason: Protocol Last Admin: 02/01/17 12:25 Dose: 4 units Metformin HCl (Glucophage) 850 mg PO DAILY [facility] Last Admin: 02/01/17 09:18 Dose: 850 mg Quetiapine Fumarate (Seroquel) 100 mg PO HS [facility] Last Admin: 01/31/17 21:04 Dose: 100 mg Rivastigmine (Exelon 9.5 Mg/24 Hr Patch) 1 patch TD DAILY [facility] Last Admin: 02/01/17 09:18 Dose: 1 patch Tamsulosin HCl (Flomax) 0.4 mg PO DAILY [facility] Last Admin: 02/01/17 09:19 Dose: 0.4 mg Tramadol HCl (Ultram) 50 mg PO Q4 PRN PRN Reason: Pain (4 - 10) Trazodone HCl (Desyrel) 50 mg PO HS [facility] Last Admin: 01/31/17 21:05 Dose: 50 mg Valsartan (Diovan) 160 mg PO DAILY [facility] Last Admin: 02/01/17 09:19 Dose: 160 mg - Labs Labs: 02/01/17 06:00 02/01/17 06:00 PT 12.4 SECONDS (9.6-11.2) H 01/30/17 19:25 INR 1.19 (0.92-1.08) H 01/30/17 19:25 APTT 28.3 SECONDS (23.3-32.5) 01/30/17 19:25
--- NOTE | 2017-02-01 20:58 | CT ---
EXAM: CT Head Without Intravenous Contrast. CLINICAL HISTORY: 81 years old, male; Injury or trauma; Fall; Initial encounter; Concussion / head injury; Consciousness not specified; Additional info: S/P fall at home. Change in behavior. Sent prior ct head from 11-30-2014 TECHNIQUE: Axial computed tomography images of the head/brain without intravenous contrast. This CT exam was performed using one or more of the following dose reduction techniques: automated exposure control, adjustment of the mA and/or kV according to patient size, and/or use of iterative reconstruction technique. Coronal and sagittal reformatted images were created and reviewed. COMPARISON: CT - HEAD W/O CONTRAST 11/30/2014 10:54:40 AM FINDINGS: Brain: Moderate atrophy. No intracranial hemorrhage. No mass. Mild encephalomalacia within RIGHT parietal region. Multiple scattered foci of decreased attenuation within periventricular/subcortical white matter. No edema. Ventricles: No hydrocephalus. Bones/joints: No acute fracture. Soft tissues: Unremarkable. Vasculature: Atherosclerotic disease of intracranial arteries. Sinuses: Scattered minimal mucosal thickening. Mastoid air cells: Opacification of LEFT mastoid, stable. Orbits: Unremarkable as visualized. IMPRESSION: 1. No intracranial hemorrhage. 2. Nonspecific white matter changes. 3. Incidental/non-acute findings are described above.
[2017-02-02] MEDS: Insulin Regular 100 units/ml SC SCH ×4 (06:49→21:40)
[2017-02-02 07:11] LABS: BASO % 0.6 % (0.0-2.0); EOS # 0.2 K/uL (0.0-0.7); EOS % 2.5 % (0.0-4.0); LYMPH # 0.9 K/uL (1.0-4.3); LYMPH % 12.8 % (20.0-40.0); MEAN CELL VOLUME 88.9 fl (80.0-94.0); MEAN CORPUSCULAR HEMOGLOBIN 30.2 pg (27.0-31.0); MEAN PLATELET VOLUME 9.7 fl (7.2-11.7); MONO # 0.6 K/uL (0.0-0.8); MONO % 8.6 % (0.0-10.0); NEUT # 5.3 K/uL (1.8-7.0); NEUT % 75.5 % (50.0-75.0); NRBC % 0.1 % (0.0-0.0); RED CELL DISTRIBUTION WIDTH 14.6 % (11.5-14.5); WHITE BLOOD COUNT 7.1 K/uL (4.8-10.8)
[2017-02-02 07:16] LABS: BLOOD UREA NITROGEN 23 mg/dl (9-20); CALCIUM 9.3 mg/dL (8.4-10.2); CARBON DIOXIDE 26 mmol/L (22-30); CHLORIDE 102 mmol/L (98-107); GFR AFRICAN-AMERICAN > 60; GLUCOSE,RANDOM 278 mg/dL (75-110); SODIUM 143 mmol/l (132-148)
[2017-02-02 07:34] LABS: T4 6.94 ug/dl (5.5-11.0)
[2017-02-02 07:46] LABS: THYROID STIMULATING HORMONE 3.58 mIU/ML (0.46-4.68)
[2017-02-02] MEDS: Divalproex 250 mg DR(BID formulation) PO SCH ×2 (08:59→17:32)
[2017-02-02] MEDS: Carbidopa/Levodopa 25/100 CR PO SCH ×4 (09:01→21:31)
--- NOTE | 2017-02-02 10:50 | CP.PCM.PN ---
Subjective - Date & Time of Evaluation Date of Evaluation: 02/02/17 Time of Evaluation: 10:30 - Subjective Subjective: Hospitalist Progress Note (Patient was seen and examined 10:30 AM 02/02/17 660-2) 81 year old male (PMHx of Dementia, Bipolar Disorder, DM 2, HTN, Parkinson's Disease, Gout) who was admitted on 01/30/17 for further evaluation after he was found on the floor at his residence (where he lives by himself) by his ex- after he had fell out of his recliner. Patient stated that there was NO loss of consciousness and he has been experiencing nonradiating low back pain. CT Lumbar Spine 01/30/17 showed degenerative changs. Chest X Ray 01/30/17 showed Right Upper Lung zone 3mm nodule. He had elevated Lactic Acid upon admission but this normalized by 01/31/17. He had elevated CPK 419 but this declined to 343 with administration of IVF and normalized by 02/02/17. He had Leukocytosis but this also has normalized. CT Head 02/01/17 showed NO intracranial hemorrhage , nonspecific white matter changes, stable left mastoid opacifications, moderate atrophy, right parietal encephalomalacia, and atherosclerosis of intracranial arteries. Patient was evaluated by Psychiatry Dr. Abreu on (Pyschiatry evaluation ordered due to family concerns as documented on Progress Note 02/01/17) and it was determined that patient did not require Acute Psychiatry Admission but that patient may require [place]. Patient was evaluated by PT 02/01/17 and [facility] was recommended. Upon FULL ROS again patient has NO complaints: NO chest pain, NO palpitations, NO SOB/Cough/Wheezing, NO dysphagia/odynophagia , NO abdominal pain, NO n/v/d/c, NO burning/pain with urination, NO lightheadedness/dizziness, NO new changes in vision/eye pain, NO new changes in hearing/ear pain, NO paresthesias, NO edema General: AAOx3, NAD HEENT: NCA, PERRLA, EOMI, NO cervical lymphadenopathy, NO thyromegaly, NO Pharyngeal erythema/exudate Cardio: NS1 and NS2, NO M/R/G Respiratory: CTA B/L, NO R/R/W GI: BSx4, Soft, NT, ND, NO HSM, NO guarding/rebound tenderness Ext: NO edema, Pulses are strong and equal, Capillary refill is 2 seconds Neuro: CN II through XII are grossly intact Assessment and Plan: 1). S/P Fall PT/OT CT Head without contrast 02/01/17 did not show any acute process. See report full details 2). Dehydration Resolved BUN/Cr improved to 23/0.8 3). Rhabdomyolysis CPK has normalized by 02/02/17 4). Leukocytosis Resolved WBC 7.1 today 5). DM 2 Relatively Controlled RISS Metformin 850 mg PO 1x/day 6). HTN Norvasc 5 mg PO 1x/day increased to 10 as B/P high today Diovan 160 mg PO 1x/day 7). HLD Lipitor 20 mg PO QHS 8). Bipolar Disorder Seroquel 100 mg PO QHS Trazodone 50 mg PO QHS 9). Parkinson's Disease/Dementia Rivastigmine 1 Patch TD 1x/day Sinemet 1 tab PO 4x/day Depakote 250 mg PO 2x/day 10). Gout Allopurinol 100 mg PO 1x/day Colcrys 0.6 mg PO 1x/day 11). Prophylactic Measures Tylenol 650 mg PO Q4H PRN Pain 1-3 Tramadol 50 mg PO Q4H PRN Pain 4-10 ASA 81 mg PO 1x/day Vit D 50,000 1 Cap once/week Pepcid 20 mg PO QHS Flomax 04 mg PO 1x/day Patient requires 3 overnights before being transferred to [facility] and this will be done after [employer] Daphne speaks with Daughter Coleen [phone] (with whom she has left 2 voicemails today). Referrals to various [facility] already sent and Daphne is awaiting to hear back from them. Once at [facility], family can decide on [place] placement for patient. Objective - Vital Signs/Intake and Output Vital Signs (last 24 hours): Temp Pulse Resp BP Pulse Ox 98.2 F 81 20 174/96 H 99 02/02/17 08:51 02/02/17 09:00 02/02/17 08:51 02/02/17 09:00 02/02/17 08:51 - Medications Medications: Current Medications Acetaminophen (Tylenol 325mg Tab) 650 mg PO Q4 PRN PRN Reason: Pain, Mild (1-3) Last Admin: 02/02/17 04:43 Dose: 650 mg Allopurinol (Zyloprim) 100 mg PO DAILY [facility] Last Admin: 02/02/17 08:59 Dose: 100 mg Amlodipine Besylate (Norvasc) 5 mg PO DAILY [facility] Last Admin: 02/02/17 09:00 Dose: 5 mg Aspirin (Ecotrin) 81 mg PO DAILY [facility] Last Admin: 02/02/17 08:59 Dose: 81 mg Atorvastatin Calcium (Lipitor) 20 mg PO HS [facility] Last Admin: 02/01/17 21:53 Dose: 20 mg Carbidopa/Levodopa (Sinemet Cr) 1 tab PO QID [facility] Last Admin: 02/02/17 09:01 Dose: 1 tab Colchicine (Colocrys) 0.6 mg PO DAILY [facility] Last Admin: 02/02/17 09:01 Dose: 0.6 mg Divalproex Sodium (Depakote Dr(*Bid*)) 250 mg PO BID [facility] Last Admin: 02/02/17 08:59 Dose: 250 mg Ergocalciferol (Drisdol 50,000 Intl Units Cap) 1 cap PO QWK [facility] Last Admin: 01/31/17 10:35 Dose: 1 cap Famotidine (Pepcid) 20 mg PO HS [facility] Last Admin: 02/01/17 21:53 Dose: 20 mg Insulin Human Regular (Humulin R) 0 units SC ACHS [facility] PRN Reason: Protocol Last Admin: 02/02/17 06:49 Dose: Not Given Metformin HCl (Glucophage) 850 mg PO DAILY [facility] Last Admin: 02/02/17 09:00 Dose: 850 mg Quetiapine Fumarate (Seroquel) 100 mg PO HS [facility] Last Admin: 02/01/17 21:53 Dose: 100 mg Rivastigmine (Exelon 9.5 Mg/24 Hr Patch) 1 patch TD DAILY [facility] Last Admin: 02/02/17 08:59 Dose: 1 patch Tamsulosin HCl (Flomax) 0.4 mg PO DAILY [facility] Last Admin: 02/02/17 09:00 Dose: 0.4 mg Tramadol HCl (Ultram) 50 mg PO Q4 PRN PRN Reason: Pain (4 - 10) Trazodone HCl (Desyrel) 50 mg PO HS [facility] Last Admin: 02/01/17 21:53 Dose: 50 mg Valsartan (Diovan) 160 mg PO DAILY [facility] Last Admin: 02/02/17 08:59 Dose: 160 mg - Labs Labs: 02/02/17 05:40 02/02/17 05:40 PT 12.4 SECONDS (9.6-11.2) H 01/30/17 19:25 INR 1.19 (0.92-1.08) H 01/30/17 19:25 APTT 28.3 SECONDS (23.3-32.5) 01/30/17 19:25
--- NOTE | 2017-02-02 11:57 | CP.PCM.CON ---
History of Present Illness - History of Present Illness History of Present Illness: Psychiatry consult called for evaluation of mental illness CC: "I fell" HPI: 81 yo male w/ h/o bipolar disorder, gout, htn, NIDDM, dementia, parkinson' s disease, admitted to the hospital s/p falling. 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 He is currently at his baseline of functioning. He denies acute psychiatric symptoms but does report continued conflict with his family. Family has a hard time managing the patient, also because the patient becomes irritable when he is given orders or redirected. ROS: Denies psychosis, no hallucinations, no paranoia, no feelings of guilt, no obsessions, no compulsions, no donato, no pressured speech, no flight of ideas, no grandiose thoughts, no current suicidal ideation/plan/intent, no delusions PPHx: Multiple past admissions for h/o bipolar disorder and periods of homicidal ideation. Hx of tx with Risperdal but this was switched to Seroquel due to parkinson's disease. H/o tx with Depakote. PMHx: Bipolar disorder, gout, HTN, dementia, Parkinson's disease, NIDDM All: NKDA SHx: Lives with son or daughter at various times, from [place], denies legal problems, no drugs/etoh/cigarettes, no h/o abuse MSE: A + O x 3, good eye contact, psychomotor retarded due to age/ambulates with cane, no acute distress, affect- broad/full range, mood "good", thought process-coherent, thought content-no delusions, no AH/VH, no SI/HI, insight/ judgment overall fair, but limited at times due to dementia Impression: 81 yo male w/ h/o bipolar disorder, gout, htn, NIDDM, dementia, parkinson's disease, admitted to the hospital s/p falling. Patient does NOT require acute inpatient psychiatric admission at this time. Recommendations: -Continue Seroquel 100 mg PO HS, Depakote 250 mg PO BID, Trazodone 50 mg PO HS -Patient does NOT need acute inpatient admission -As family is unable to manage the patient at this time due to his personality and dementia, would recommend that family seek long goods drier placement for the patient, such as a halfway; it is not urgent that the patient stay in the hospital to wait for long goods drier placement if the family can have additional home health aide or visiting services at home while they await halfway placement -Re-consult with further questions, Dr. Abreu [phone] Past Patient History - Infectious Disease Hx of Infectious Diseases: None - Tetanus Immunizations Tetanus Immunization: Unknown - Past Medical History & Family History Past Medical History?: Yes - Past Social History Smoking Status: Never Smoked Chewing Tobacco Use: No Cigar Use: No Alcohol: None Drugs: Denies Home Situation {Lives}: Alone - CARDIAC Hx Hypercholesterolemia: Yes Hx Hypertension: Yes - PULMONARY Hx Respiratory Disorders: No - NEUROLOGICAL Hx Dementia: Yes Hx Parkinson's Disease: Yes Hx Seizures: No - HEENT Hx HEENT Problems: No - RENAL Hx Chronic Kidney Disease: No - ENDOCRINE/METABOLIC Hx Diabetes Mellitus Type 2: Yes - HEMATOLOGICAL/ONCOLOGICAL Hx Human Immunodeficiency Virus (HIV): No - INTEGUMENTARY Hx Dermatological Problems: No - MUSCULOSKELETAL/RHEUMATOLOGICAL Hx Falls: Yes Hx Gout: Yes Hx Unsteady Gait: Yes - GASTROINTESTINAL Hx Gastrointestinal Disorders: No - GENITOURINARY/GYNECOLOGICAL Hx Sexually Transmitted Disorders: No - PSYCHIATRIC Hx Anxiety: Yes Hx Bipolar Disorder: Yes Hx Depression: Yes - SURGICAL HISTORY Hx Surgeries: No - ANESTHESIA Hx Anesthesia: No Meds Allergies/Adverse Reactions: Allergies Allergy/AdvReac Type Severity Reaction Status Date / Time No Known Allergies Allergy Unverified 06/03/14 12:27 - Medications Medications: Current Medications Acetaminophen (Tylenol 325mg Tab) 650 mg PO Q4 PRN PRN Reason: Pain, Mild (1-3) Last Admin: 02/02/17 04:43 Dose: 650 mg Allopurinol (Zyloprim) 100 mg PO DAILY [facility] Last Admin: 02/02/17 08:59 Dose: 100 mg Amlodipine Besylate (Norvasc) 5 mg PO DAILY [facility] Last Admin: 02/02/17 09:00 Dose: 5 mg Aspirin (Ecotrin) 81 mg PO DAILY [facility] Last Admin: 02/02/17 08:59 Dose: 81 mg Atorvastatin Calcium (Lipitor) 20 mg PO HS [facility] Last Admin: 02/01/17 21:53 Dose: 20 mg Carbidopa/Levodopa (Sinemet Cr) 1 tab PO QID [facility] Last Admin: 02/02/17 09:01 Dose: 1 tab Colchicine (Colocrys) 0.6 mg PO DAILY [facility] Last Admin: 02/02/17 09:01 Dose: 0.6 mg Divalproex Sodium (Depakote Dr(*Bid*)) 250 mg PO BID [facility] Last Admin: 02/02/17 08:59 Dose: 250 mg Ergocalciferol (Drisdol 50,000 Intl Units Cap) 1 cap PO QWK [facility] Last Admin: 01/31/17 10:35 Dose: 1 cap Famotidine (Pepcid) 20 mg PO HS [facility] Last Admin: 02/01/17 21:53 Dose: 20 mg Insulin Human Regular (Humulin R) 0 units SC [facility] PRN Reason: Protocol Last Admin: 02/02/17 06:49 Dose: Not Given Metformin HCl (Glucophage) 850 mg PO DAILY [facility] Last Admin: 02/02/17 09:00 Dose: 850 mg Quetiapine Fumarate (Seroquel) 100 mg PO HS [facility] Last Admin: 02/01/17 21:53 Dose: 100 mg Rivastigmine (Exelon 9.5 Mg/24 Hr Patch) 1 patch TD DAILY [facility] Last Admin: 02/02/17 08:59 Dose: 1 patch Tamsulosin HCl (Flomax) 0.4 mg PO DAILY [facility] Last Admin: 02/02/17 09:00 Dose: 0.4 mg Tramadol HCl (Ultram) 50 mg PO Q4 PRN PRN Reason: Pain (4 - 10) Trazodone HCl (Desyrel) 50 mg PO HS [facility] Last Admin: 02/01/17 21:53 Dose: 50 mg Valsartan (Diovan) 160 mg PO DAILY [facility] Last Admin: 02/02/17 08:59 Dose: 160 mg Results - Vital Signs Recent Vital Signs: Last Vital Signs Temp 98.2 F 02/02/17 08:51 Pulse 76 02/02/17 11:36 Resp 20 02/02/17 08:51 BP 174/96 H 02/02/17 09:00 Pulse Ox 98 02/02/17 11:36 - Labs Result Diagrams: 02/02/17 05:40 02/02/17 05:40 Labs: Laboratory Results - last 24 hr 02/02/17 02/02/17 02/02/17 05:40 06:45 10:54 WBC 7.1 RBC 4.38 L Hgb 13.3 Hct 39.0 MCV 88.9 MCH 30.2 MCHC 34.0 RDW 14.6 H Plt Count 229 MPV 9.7 Neut % (Auto) 75.5 H Lymph % (Auto) 12.8 L [place] % (Auto) 8.6 Eos % (Auto) 2.5 Baso % (Auto) 0.6 Neut # 5.3 Lymph # 0.9 L [place] # 0.6 Eos # 0.2 Baso # 0.0 Sodium 143 Potassium 4.0 Chloride 102 Carbon Dioxide 26 Anion Gap 19 BUN 23 H Creatinine 0.8 Est GFR ( Amer) > 60 Est GFR (Non-Af Amer) > 60 POC Glucose (mg/dL) 288 H 230 H Random Glucose 278 H Calcium 9.3 Total Creatine Kinase 118 Thyroxine (T4) 6.94 TSH 3rd Generation 3.58 Assessment & Plan - Assessment and Plan (Free Text) Assessment: Patient evaluated, chart reviewed, 55 min
[2017-02-03] MEDS: Insulin Regular 100 units/ml SC SCH ×4 (06:58→23:26)
[2017-02-03 08:12] LABS: HEMATOCRIT 40.3 % (35.0-51.0); MEAN CELL VOLUME 89.5 fl (80.0-94.0); MEAN CORPUSCULAR HGB CONC 33.6 g/dL (33.0-37.0); RED CELL DISTRIBUTION WIDTH 14.9 % (11.5-14.5); WHITE BLOOD COUNT 7.8 K/uL (4.8-10.8)
[2017-02-03 08:24] LABS: BLOOD UREA NITROGEN 18 mg/dl (9-20); CALCIUM 9.5 mg/dL (8.4-10.2); CARBON DIOXIDE 29 mmol/L (22-30); CHLORIDE 99 mmol/L (98-107); GFR AFRICAN-AMERICAN > 60; GLUCOSE,RANDOM 267 mg/dL (75-110); POTASSIUM 4.2 MMOL/L (3.6-5.0); SODIUM 143 mmol/l (132-148)
[2017-02-03] MEDS: Divalproex 250 mg DR(BID formulation) PO SCH ×2 (09:36→17:10)
[2017-02-03] MEDS: COLCHICINE 0.6 MG CAPSULE PO SCH (09:36)
[2017-02-03] MEDS: Carbidopa/Levodopa 25/100 CR PO SCH ×4 (09:37→22:11)
--- NOTE | 2017-02-03 14:02 | CP.PCM.PN ---
Subjective - Date & Time of Evaluation Date of Evaluation: 02/03/17 Time of Evaluation: 13:40 - Subjective Subjective: Hospitalist Progress Note (Patient was seen and examined 1:40 PM 02/03/17 [id number]) 81 year old male (PMHx of Dementia, Bipolar Disorder, DM 2, HTN, Parkinson's Disease, Gout) who was admitted on 01/30/17 for further evaluation after he was found on the floor at his residence (where he lives by himself) by his ex- after he had fell out of his recliner. Patient stated that there was NO loss of consciousness and he has been experiencing nonradiating low back pain. CT Lumbar Spine 01/30/17 showed degenerative changs. Chest X Ray 01/30/17 showed Right Upper Lung zone 3mm nodule. He had elevated Lactic Acid upon admission but this normalized by 01/31/17. He had elevated CPK 419 but this declined to 343 with administration of IVF and normalized by 02/02/17. He had Leukocytosis but this also has normalized. CT Head 02/01/17 showed NO intracranial hemorrhage , nonspecific white matter changes, stable left mastoid opacifications, moderate atrophy, right parietal encephalomalacia, and atherosclerosis of intracranial arteries. Patient was evaluated by Psychiatry Dr. Abreu on (Pyschiatry evaluation ordered due to family concerns as documented on Progress Note 02/01/17) and it was determined that patient did not require Acute Psychiatry Admission but that patient may require director long term care placement. Patient was evaluated by PT 02/01/17 and [facility] was recommended and currently awaiting placement. Upon FULL ROS again patient has NO complaints (he had some left leg/knee pain earlier today but is not present at time of my exam): NO chest pain, NO palpitations, NO SOB/Cough/Wheezing, NO dysphagia/odynophagia , NO abdominal pain, NO n/v/d/c, NO burning/pain with urination, NO lightheadedness/dizziness, NO new changes in vision/eye pain, NO new changes in hearing/ear pain, NO paresthesias, NO edema General: AAOx3, NAD HEENT: NCA, PERRLA, EOMI, NO cervical lymphadenopathy, NO thyromegaly, NO Pharyngeal erythema/exudate Cardio: NS1 and NS2, NO M/R/G Respiratory: CTA B/L, NO R/R/W GI: BSx4, Soft, NT, ND, NO HSM, NO guarding/rebound tenderness Ext: NO edema, Pulses are strong and equal, Capillary refill is 2 seconds Neuro: CN II through XII are grossly intact Assessment and Plan: 1). S/P Fall PT/OT CT Head without contrast 02/01/17 did not show any acute process. See report full details 2). Dehydration Resolved BUN/Cr improved 3). Rhabdomyolysis CPK has normalized by 02/02/17 4). Leukocytosis Resolved 5). DM 2 Relatively Controlled RISS Metformin 850 mg PO 1x/day 6). HTN As blood pressure elevated Diovan has been increased: Diovan 160 mg PO x 1 dose ordered for 3 PM 02/03/17 and then Diovan 360 mg PO 1x/day to start 9 AM 02/04/17 Continue Norvasc at 10 mg PO 1x/day (9 PM) 7). HLD Lipitor 20 mg PO QHS 8). Bipolar Disorder Seroquel 100 mg PO QHS Trazodone 50 mg PO QHS 9). Parkinson's Disease/Dementia Rivastigmine 1 Patch TD 1x/day Sinemet 1 tab PO 4x/day Depakote 250 mg PO 2x/day 10). Gout Allopurinol 100 mg PO 1x/day Colcrys 0.6 mg PO 1x/day 11). Prophylactic Measures Tylenol 650 mg PO Q4H PRN Pain 1-3 Tramadol 50 mg PO Q4H PRN Pain 4-10 ASA 81 mg PO 1x/day Vit D 50,000 1 Cap once/week Pepcid 20 mg PO QHS Flomax 04 mg PO 1x/day Patient requires 3 overnights before being transferred to [facility] and this will be completed after 02/03/17. I spoke with Daughter Coleen [phone] and she has spoken with Design Assembler Daphne and is in agreement for [facility] placement ( patient is also agreeable). Discharge to [facility] 02/04/17 once bed is available. Coleen will also be stopping by this evening to see patient as patient stated that he was missing her. Objective - Vital Signs/Intake and Output Vital Signs (last 24 hours): Temp Pulse Resp BP Pulse Ox 98.1 F 114 H 20 160/94 H 96 02/03/17 08:09 02/03/17 08:09 02/03/17 08:09 02/03/17 08:09 02/03/17 08:09 - Medications Medications: Current Medications Acetaminophen (Tylenol 325mg Tab) 650 mg PO Q4 PRN PRN Reason: Pain, Mild (1-3) Last Admin: 02/03/17 13:02 Dose: 650 mg Allopurinol (Zyloprim) 100 mg PO DAILY [facility] Last Admin: 02/03/17 09:37 Dose: 100 mg Amlodipine Besylate (Norvasc) 10 mg PO DAILY@2100 [facility] Aspirin (Ecotrin) 81 mg PO DAILY [facility] Last Admin: 02/03/17 09:36 Dose: 81 mg Atorvastatin Calcium (Lipitor) 20 mg PO HS [facility] Last Admin: 02/02/17 21:31 Dose: 20 mg Carbidopa/Levodopa (Sinemet Cr) 1 tab PO QID [facility] Last Admin: 02/03/17 13:02 Dose: 1 tab Colchicine (Colchicine) 0.6 mg PO DAILY [facility] Last Admin: 02/03/17 09:36 Dose: 0.6 mg Divalproex Sodium (Depakote Dr(*Bid*)) 250 mg PO BID [facility] Last Admin: 02/03/17 09:36 Dose: 250 mg Ergocalciferol (Drisdol 50,000 Intl Units Cap) 1 cap PO QWK [facility] Last Admin: 01/31/17 10:35 Dose: 1 cap Famotidine (Pepcid) 20 mg PO HS [facility] Last Admin: 02/02/17 21:31 Dose: 20 mg Insulin Human Regular (Humulin R) 0 units SC [facility] PRN Reason: Protocol Last Admin: 02/03/17 13:00 Dose: 4 units Metformin HCl (Glucophage) 850 mg PO DAILY [facility] Last Admin: 02/03/17 09:37 Dose: 850 mg Quetiapine Fumarate (Seroquel) 100 mg PO HS [facility] Last Admin: 02/02/17 21:31 Dose: 100 mg Rivastigmine (Exelon 9.5 Mg/24 Hr Patch) 1 patch TD DAILY [facility] Last Admin: 02/03/17 09:36 Dose: 1 patch Tamsulosin HCl (Flomax) 0.4 mg PO DAILY [facility] Last Admin: 02/03/17 09:37 Dose: 0.4 mg Trazodone HCl (Desyrel) 50 mg PO HS [facility] Last Admin: 02/02/17 21:31 Dose: 50 mg Valsartan (Diovan) 160 mg PO ONCE ONE Stop: 02/03/17 15:01 Valsartan (Diovan) 320 mg PO DAILY [facility] - Labs Labs: 02/03/17 07:05 02/03/17 07:05 PT 12.4 SECONDS (9.6-11.2) H 01/30/17 19:25 INR 1.19 (0.92-1.08) H 01/30/17 19:25 APTT 28.3 SECONDS (23.3-32.5) 01/30/17 19:25
[2017-02-04 07:57] LABS: BASO # 0.1 K/uL (0.0-0.2); BASO % 0.8 % (0.0-2.0); EOS # 0.2 K/uL (0.0-0.7); EOS % 3.7 % (0.0-4.0); LYMPH # 1.2 K/uL (1.0-4.3); LYMPH % 18.3 % (20.0-40.0); MEAN CORPUSCULAR HEMOGLOBIN 29.9 pg (27.0-31.0); MEAN CORPUSCULAR HGB CONC 33.2 g/dL (33.0-37.0); MEAN PLATELET VOLUME 9.5 fl (7.2-11.7); MONO # 0.7 K/uL (0.0-0.8); MONO % 10.9 % (0.0-10.0); NEUT # 4.4 K/uL (1.8-7.0); NEUT % 66.3 % (50.0-75.0); NRBC % 0.1 % (0.0-0.0); RED CELL DISTRIBUTION WIDTH 14.9 % (11.5-14.5); WHITE BLOOD COUNT 6.6 K/uL (4.8-10.8)
[2017-02-04 08:10] LABS: BLOOD UREA NITROGEN 18 mg/dl (9-20); CALCIUM 9.3 mg/dL (8.4-10.2); CARBON DIOXIDE 33 mmol/L (22-30); CHLORIDE 99 mmol/L (98-107); GFR AFRICAN-AMERICAN > 60; GLUCOSE,RANDOM 251 mg/dL (75-110); POTASSIUM 4.2 MMOL/L (3.6-5.0); SODIUM 144 mmol/l (132-148)
[2017-02-04] MEDS: Insulin Regular 100 units/ml SC SCH ×4 (08:22→22:46)
[2017-02-04] MEDS: COLCHICINE 0.6 MG CAPSULE PO SCH (09:57)
[2017-02-04] MEDS: Carbidopa/Levodopa 25/100 CR PO SCH ×4 (09:58→21:02)
[2017-02-04] MEDS: Divalproex 250 mg DR(BID formulation) PO SCH ×2 (09:59→17:26)
[2017-02-04] MEDS: GlipiZIDE 2.5 mg SR Tab PO SCH (10:00)
[2017-02-04] MEDS: Metoprolol Succinate 25 mg XL Tab PO SCH (13:34)
--- NOTE | 2017-02-04 13:50 | CP.PCM.PN ---
Subjective - Date & Time of Evaluation Date of Evaluation: 02/04/17 Time of Evaluation: 12:00 - Subjective Subjective: No fever denies CP no SOB no abd pain + BM Pt is oriented and answers questions appropiately Objective - Vital Signs/Intake and Output Vital Signs (last 24 hours): Temp Pulse Resp BP Pulse Ox 98.8 F 85 20 167/91 H 99 02/03/17 21:19 02/03/17 22:07 02/03/17 21:19 02/04/17 13:34 02/03/17 21:19 - Medications Medications: Current Medications Acetaminophen (Tylenol 325mg Tab) 650 mg PO Q4 PRN PRN Reason: Pain, Mild (1-3) Last Admin: 02/04/17 08:32 Dose: 650 mg Allopurinol (Zyloprim) 100 mg PO DAILY [facility] Last Admin: 02/04/17 09:59 Dose: 100 mg Amlodipine Besylate (Norvasc) 10 mg PO DAILY@2100 [facility] Last Admin: 02/03/17 22:07 Dose: 10 mg Aspirin (Ecotrin) 81 mg PO DAILY [facility] Last Admin: 02/04/17 09:57 Dose: 81 mg Atorvastatin Calcium (Lipitor) 20 mg PO HS [facility] Last Admin: 02/03/17 22:10 Dose: 20 mg Carbidopa/Levodopa (Sinemet Cr) 1 tab PO QID [facility] Last Admin: 02/04/17 13:34 Dose: 1 tab Colchicine (Colchicine) 0.6 mg PO DAILY [facility] Last Admin: 02/04/17 09:57 Dose: 0.6 mg Divalproex Sodium (Depakote Dr(*Bid*)) 250 mg PO BID [facility] Last Admin: 02/04/17 09:59 Dose: 250 mg Ergocalciferol (Drisdol 50,000 Intl Units Cap) 1 cap PO QWK [facility] Last Admin: 01/31/17 10:35 Dose: 1 cap Famotidine (Pepcid) 20 mg PO HS [facility] Last Admin: 02/03/17 22:10 Dose: 20 mg Glipizide (Glucotrol Xl) 2.5 mg PO DAILY [facility] Last Admin: 02/04/17 10:00 Dose: 2.5 mg Insulin Human Regular (Humulin R) 0 units SC ACHS [facility] PRN Reason: Protocol Last Admin: 02/04/17 11:30 Dose: 4 units Metformin HCl (Glucophage) 850 mg PO DAILY [facility] Last Admin: 02/04/17 09:57 Dose: 850 mg Metoprolol Succinate (Toprol Xl) 25 mg PO DAILY [facility] Last Admin: 02/04/17 13:34 Dose: 25 mg Quetiapine Fumarate (Seroquel) 100 mg PO HS [facility] Last Admin: 02/03/17 22:11 Dose: 100 mg Rivastigmine (Exelon 9.5 Mg/24 Hr Patch) 1 patch TD DAILY [facility] Last Admin: 02/04/17 10:00 Dose: 1 patch Tamsulosin HCl (Flomax) 0.4 mg PO DAILY [facility] Last Admin: 02/04/17 09:57 Dose: 0.4 mg Trazodone HCl (Desyrel) 50 mg PO HS [facility] Last Admin: 02/03/17 22:11 Dose: 50 mg Valsartan (Diovan) 320 mg PO DAILY [facility] Last Admin: 02/04/17 09:58 Dose: 320 mg - Labs Labs: 02/04/17 06:30 02/04/17 06:30 PT 12.4 SECONDS (9.6-11.2) H 01/30/17 19:25 INR 1.19 (0.92-1.08) H 01/30/17 19:25 APTT 28.3 SECONDS (23.3-32.5) 01/30/17 19:25 - Constitutional Appears: No Acute Distress - Head Exam Head Exam: NORMAL INSPECTION, NORMOCEPHALIC - Eye Exam Eye Exam: EOMI, Normal appearance Pupil Exam: NORMAL ACCOMODATION - ENT Exam ENT Exam: Mucous Membranes Moist, Normal External Ear Exam - Neck Exam Neck Exam: Full ROM. absent: Meningismus - Respiratory Exam Respiratory Exam: absent: Wheezes, Respiratory Distress - Cardiovascular Exam Cardiovascular Exam: REGULAR RHYTHM, +S1, +S2 - GI/Abdominal Exam GI & Abdominal Exam: Soft, Normal Bowel Sounds. absent: Tenderness - Extremities Exam Extremities Exam: Full ROM, Normal Capillary Refill, Pedal Edema. absent: Calf Tenderness - Back Exam Back Exam: Full ROM. absent: CVA tenderness (L), CVA tenderness (R), paraspinal tenderness, vertebral tenderness - Neurological Exam Neurological Exam: Alert, Awake, CN II-XII Intact, Oriented x3 Additional comments: oriented - Psychiatric Exam Psychiatric exam: Normal Affect, Normal Mood - Skin Skin Exam: Dry, Normal Color, Warm Assessment and Plan - Assessment and Plan (Free Text) Assessment: 81 year old male (PMHx of Dementia, Bipolar Disorder, DM 2, HTN, Parkinson's Disease, Gout) who was admitted on 01/30/17 for further evaluation after he was found on the floor at his residence (where he lives by himself) by his ex- after he had fell out of his recliner. Patient stated that there was NO loss of consciousness and he has been experiencing nonradiating low back pain. CT Lumbar Spine 01/30/17 showed degenerative changs. Chest X Ray 01/30/17 showed Right Upper Lung zone 3mm nodule. He had elevated Lactic Acid upon admission but this normalized by 01/31/17. He had elevated CPK 419 but this declined to 343 with administration of IVF and normalized by 02/02/17. He had Leukocytosis but this also has normalized. CT Head 02/01/17 showed NO intracranial hemorrhage , nonspecific white matter changes, stable left mastoid opacifications, moderate atrophy, right parietal encephalomalacia, and atherosclerosis of intracranial arteries. Patient was evaluated by Psychiatry Dr. Abreu on (Pyschiatry evaluation ordered due to family concerns as documented on Progress Note 02/01/17) and it was determined that patient did not require Acute Psychiatry Admission but that patient may require fci placement. Patient was evaluated by PT 02/01/17 and [facility] was recommended and currently awaiting placement. 1). S/P Fall PT/OT consulted CT Head without contrast 02/01/17 did not show any acute process. See report full details 2). Dehydration Resolved BUN/Cr improved 3). Rhabdomyolysis CPK has normalized by 02/02/17 4). Leukocytosis Resolved 5). DM 2 uncontrolled RISS Metformin 850 mg PO 1x/day add low dose Glucotrol 6). HTN uncontrolled As blood pressure elevated Diovan has been increased: Diovan 320mg daily Continue Norvasc at 10 mg PO 1x/day (9 PM) 7). HLD Lipitor 20 mg PO QHS 8). Bipolar Disorder stable Seroquel 100 mg PO QHS Trazodone 50 mg PO QHS 9). Parkinson's Disease/Dementia Rivastigmine 1 Patch TD 1x/day Sinemet 1 tab PO 4x/day Depakote 250 mg PO 2x/day 10). Gout Allopurinol 100 mg PO 1x/day Colcrys 0.6 mg PO 1x/day 11). Prophylactic Measures Tylenol 650 mg PO Q4H PRN Pain 1-3 Tramadol 50 mg PO Q4H PRN Pain 4-10 ASA 81 mg PO 1x/day Vit D 50,000 1 Cap once/week Pepcid 20 mg PO QHS Flomax 0.4 mg PO 1x/day
[2017-02-05] MEDS: Insulin Regular 100 units/ml SC SCH ×4 (07:00→22:38)
[2017-02-05] MEDS: GlipiZIDE 2.5 mg SR Tab PO SCH (08:59)
[2017-02-05] MEDS: Carbidopa/Levodopa 25/100 CR PO SCH ×4 (09:00→22:35)
[2017-02-05] MEDS: COLCHICINE 0.6 MG CAPSULE PO SCH (09:00)
[2017-02-05] MEDS: Divalproex 250 mg DR(BID formulation) PO SCH ×2 (09:00→17:37)
[2017-02-05] MEDS: Metoprolol Succinate 25 mg XL Tab PO SCH (09:01)
--- NOTE | 2017-02-05 16:00 | CP.PCM.PN ---
Subjective - Date & Time of Evaluation Date of Evaluation: 02/05/17 Time of Evaluation: 14:00 - Subjective Subjective: Pt is alert, oriented to person and place however he would have episodes of donato and start talking nonstop - but then he would also have sudden episodes of crying . Patient was admitted with dehydration as he was depressed at home and was unable to take care of himself and did not eat. Walks with a cane, has hx of Parkinson's and fell at home No fever has sl nasal congestion no CP no SOB no abd pain Objective - Vital Signs/Intake and Output Vital Signs (last 24 hours): Temp Pulse Resp BP Pulse Ox 97.6 F 84 18 150/72 95 02/05/17 08:48 02/05/17 09:01 02/05/17 08:48 02/05/17 09:01 02/05/17 08:48 - Medications Medications: Current Medications Acetaminophen (Tylenol 325mg Tab) 650 mg PO Q4 PRN PRN Reason: Pain, Mild (1-3) Last Admin: 02/05/17 13:00 Dose: 650 mg Allopurinol (Zyloprim) 100 mg PO DAILY [facility] Last Admin: 02/05/17 09:00 Dose: 100 mg Amlodipine Besylate (Norvasc) 10 mg PO DAILY@2100 [facility] Last Admin: 02/04/17 20:59 Dose: 10 mg Aspirin (Ecotrin) 81 mg PO DAILY [facility] Last Admin: 02/05/17 09:01 Dose: 81 mg Atorvastatin Calcium (Lipitor) 20 mg PO HS [facility] Last Admin: 02/04/17 21:02 Dose: 20 mg Carbidopa/Levodopa (Sinemet Cr) 1 tab PO QID [facility] Last Admin: 02/05/17 09:00 Dose: 1 tab Colchicine (Colchicine) 0.6 mg PO DAILY [facility] Last Admin: 02/05/17 09:00 Dose: 0.6 mg Divalproex Sodium (Depakote Dr(*Bid*)) 250 mg PO BID [facility] Last Admin: 02/05/17 09:00 Dose: 250 mg Ergocalciferol (Drisdol 50,000 Intl Units Cap) 1 cap PO QWK [facility] Last Admin: 01/31/17 10:35 Dose: 1 cap Famotidine (Pepcid) 20 mg PO HS [facility] Last Admin: 02/04/17 21:02 Dose: 20 mg Glipizide (Glucotrol Xl) 2.5 mg PO DAILY [facility] Last Admin: 02/05/17 08:59 Dose: 2.5 mg Insulin Human Regular (Humulin R) 0 units SC [facility] PRN Reason: Protocol Last Admin: 02/05/17 07:00 Dose: Not Given Metformin HCl (Glucophage) 850 mg PO DAILY [facility] Last Admin: 02/05/17 09:01 Dose: 850 mg Metoprolol Succinate (Toprol Xl) 25 mg PO DAILY [facility] Last Admin: 02/05/17 09:01 Dose: 25 mg Quetiapine Fumarate (Seroquel) 100 mg PO [facility] Last Admin: 02/04/17 21:02 Dose: 100 mg Rivastigmine (Exelon 9.5 Mg/24 Hr Patch) 1 patch TD DAILY [facility] Last Admin: 02/05/17 09:02 Dose: 1 patch Tamsulosin HCl (Flomax) 0.4 mg PO DAILY [facility] Last Admin: 02/05/17 09:00 Dose: 0.4 mg Trazodone HCl (Desyrel) 50 mg PO [facility] Last Admin: 02/04/17 21:02 Dose: 50 mg Valsartan (Diovan) 320 mg PO DAILY [facility] Last Admin: 02/05/17 09:01 Dose: 320 mg - Labs Labs: 02/04/17 06:30 02/04/17 06:30 PT 12.4 SECONDS (9.6-11.2) H 01/30/17 19:25 INR 1.19 (0.92-1.08) H 01/30/17 19:25 APTT 28.3 SECONDS (23.3-32.5) 01/30/17 19:25 - Constitutional Appears: No Acute Distress - Head Exam Head Exam: NORMAL INSPECTION, NORMOCEPHALIC - Eye Exam Eye Exam: EOMI, Normal appearance Pupil Exam: NORMAL ACCOMODATION - ENT Exam ENT Exam: Mucous Membranes Moist, Normal External Ear Exam - Neck Exam Neck Exam: Full ROM. absent: Meningismus - Respiratory Exam Respiratory Exam: absent: Wheezes, Respiratory Distress - Cardiovascular Exam Cardiovascular Exam: REGULAR RHYTHM, +S1, +S2 - GI/Abdominal Exam GI & Abdominal Exam: Soft, Normal Bowel Sounds. absent: Tenderness - Extremities Exam Extremities Exam: Full ROM, Normal Capillary Refill, Pedal Edema. absent: Calf Tenderness - Back Exam Back Exam: Full ROM. absent: CVA tenderness (L), CVA tenderness (R), paraspinal tenderness, vertebral tenderness - Neurological Exam Neurological Exam: Alert, Awake, CN II-XII Intact, Oriented x3 Additional comments: oriented - Psychiatric Exam Psychiatric exam: Normal Affect, Normal Mood - Skin Skin Exam: Dry, Normal Color, Warm Assessment and Plan - Assessment and Plan (Free Text) Assessment: 81 year old male (PMHx of Dementia, Bipolar Disorder, DM 2, HTN, Parkinson's Disease, Gout) who was admitted on 01/30/17 for further evaluation after he was found on the floor at his residence (where he lives by himself) by his ex- after he had fell out of his recliner. Patient stated that there was NO loss of consciousness and he has been experiencing nonradiating low back pain. CT Lumbar Spine 01/30/17 showed degenerative changs. Chest X Ray 01/30/17 showed Right Upper Lung zone 3mm nodule. He had elevated Lactic Acid upon admission but this normalized by 01/31/17. He had elevated CPK 419 but this declined to 343 with administration of IVF and normalized by 02/02/17. He had Leukocytosis but this also has normalized. CT Head 02/01/17 showed NO intracranial hemorrhage , nonspecific white matter changes, stable left mastoid opacifications, moderate atrophy, right parietal encephalomalacia, and atherosclerosis of intracranial arteries. Patient was evaluated by Psychiatry Dr. Abreu on (Pyschiatry evaluation ordered due to family concerns as documented on Progress Note 02/01/17) and it was determined that patient did not require Acute Psychiatry Admission but that patient may require terminal press operator placement. Patient was evaluated by PT 02/01/17 and [facility] was recommended and currently awaiting placement. 1). S/P Fall PT/OT consulted, pt walks with cane CT Head without contrast 02/01/17 did not show any acute process. 2). Dehydration Resolved BUN/Cr improved 3). Rhabdomyolysis CPK has normalized by 02/02/17 4). Leukocytosis Resolved 5). DM 2 uncontrolled RISS Metformin 850 mg PO 1x/day add low dose Glucotrol 6). HTN uncontrolled As blood pressure elevated Diovan has been increased: Diovan 320mg daily Continue Norvasc at 10 mg PO 1x/day 7). HLD Lipitor 20 mg PO QHS 8). Bipolar Disorder manic most of the time however has episodes of Depression and was admitted with dehydration as he was not eating Seroquel 100 mg PO QHS Trazodone 50 mg PO QHS 9). Parkinson's Disease/Dementia Rivastigmine 1 Patch TD 1x/day Sinemet 1 tab PO 4x/day Depakote 250 mg PO 2x/day PT consulted 10). Gout Allopurinol 100 mg PO 1x/day Colcrys 0.6 mg PO 1x/day 11). Prophylactic Measures Tylenol 650 mg PO Q4H PRN Pain 1-3 Tramadol 50 mg PO Q4H PRN Pain 4-10 ASA 81 mg PO 1x/day Vit D 50,000 1 Cap once/week Pepcid 20 mg PO QHS Flomax 0.4 mg PO 1x/day
[2017-02-06] MEDS: Insulin Regular 100 units/ml SC SCH ×4 (06:40→21:58)
[2017-02-06] MEDS: Ergocalciferol 50,000 Intl Units Cap PO SCH (09:00)
[2017-02-06] MEDS: COLCHICINE 0.6 MG CAPSULE PO SCH (09:00)
[2017-02-06] MEDS: Divalproex 250 mg DR(BID formulation) PO SCH ×2 (09:00→16:13)
[2017-02-06] MEDS: GlipiZIDE 2.5 mg SR Tab PO SCH (09:01)
[2017-02-06] MEDS: Metoprolol Succinate 25 mg XL Tab PO SCH (09:02)
[2017-02-06] MEDS: Carbidopa/Levodopa 25/100 CR PO SCH ×4 (09:02→20:59)
--- NOTE | 2017-02-06 11:19 | CP.PCM.PN ---
Subjective - Date & Time of Evaluation Date of Evaluation: 02/06/17 Time of Evaluation: 10:45 - Subjective Subjective: Pt seen and examined. Claimed he was doing okay except for on and off dry cough. Objective - Vital Signs/Intake and Output Vital Signs (last 24 hours): Temp Pulse Resp BP Pulse Ox 98.1 F 88 20 132/74 98 02/06/17 08:32 02/06/17 08:32 02/06/17 08:32 02/06/17 08:32 02/06/17 08:32 - Medications Medications: Current Medications Acetaminophen (Tylenol 325mg Tab) 650 mg PO Q4 PRN PRN Reason: Pain, Mild (1-3) Last Admin: 02/06/17 10:58 Dose: 650 mg Allopurinol (Zyloprim) 100 mg PO DAILY [facility] Last Admin: 02/06/17 09:02 Dose: 100 mg Amlodipine Besylate (Norvasc) 10 mg PO DAILY@2100 [facility] Last Admin: 02/05/17 22:35 Dose: 10 mg Aspirin (Ecotrin) 81 mg PO DAILY [facility] Last Admin: 02/06/17 09:02 Dose: 81 mg Atorvastatin Calcium (Lipitor) 20 mg PO HS [facility] Last Admin: 02/05/17 22:34 Dose: 20 mg Carbidopa/Levodopa (Sinemet Cr) 1 tab PO QID [facility] Last Admin: 02/06/17 09:02 Dose: 1 tab Colchicine (Colchicine) 0.6 mg PO DAILY [facility] Last Admin: 02/06/17 09:00 Dose: 0.6 mg Divalproex Sodium (Depakote Dr(*Bid*)) 250 mg PO BID [facility] Last Admin: 02/06/17 09:00 Dose: 250 mg Ergocalciferol (Drisdol 50,000 Intl Units Cap) 1 cap PO QWK [facility] Last Admin: 02/06/17 09:00 Dose: 1 cap Famotidine (Pepcid) 20 mg PO HS [facility] Last Admin: 02/05/17 22:35 Dose: 20 mg Glipizide (Glucotrol Xl) 2.5 mg PO DAILY [facility] Last Admin: 02/06/17 09:01 Dose: 2.5 mg Guaifenesin/Dextromethorphan (Robitussin Dm) 5 ml PO Q4 PRN PRN Reason: Cough Insulin Human Regular (Humulin R) 0 units SC ACHS [facility] PRN Reason: Protocol Last Admin: 02/06/17 06:40 Dose: 2 units Metformin HCl (Glucophage) 850 mg PO DAILY [facility] Last Admin: 02/06/17 09:01 Dose: 850 mg Metoprolol Succinate (Toprol Xl) 25 mg PO DAILY [facility] Last Admin: 02/06/17 09:02 Dose: 25 mg Quetiapine Fumarate (Seroquel) 100 mg PO HS [facility] Last Admin: 02/05/17 22:35 Dose: 100 mg Rivastigmine (Exelon 9.5 Mg/24 Hr Patch) 1 patch TD DAILY [facility] Last Admin: 02/06/17 09:01 Dose: 1 patch Tamsulosin HCl (Flomax) 0.4 mg PO DAILY [facility] Last Admin: 02/06/17 09:01 Dose: 0.4 mg Trazodone HCl (Desyrel) 50 mg PO HS [facility] Last Admin: 02/05/17 22:34 Dose: 50 mg Valsartan (Diovan) 320 mg PO DAILY [facility] Last Admin: 02/06/17 09:01 Dose: 320 mg - Labs Labs: 02/04/17 06:30 02/04/17 06:30 PT 12.4 SECONDS (9.6-11.2) H 01/30/17 19:25 INR 1.19 (0.92-1.08) H 01/30/17 19:25 APTT 28.3 SECONDS (23.3-32.5) 01/30/17 19:25 - Constitutional Appears: No Acute Distress - Head Exam Head Exam: ATRAUMATIC - Eye Exam Eye Exam: absent: Scleral icterus - ENT Exam ENT Exam: Mucous Membranes Moist - Neck Exam Neck Exam: absent: Meningismus - Respiratory Exam Respiratory Exam: absent: Rhonchi, Wheezes, Respiratory Distress - Cardiovascular Exam Cardiovascular Exam: REGULAR RHYTHM, +S1, +S2 - GI/Abdominal Exam GI & Abdominal Exam: Soft. absent: Tenderness - Rectal Exam Rectal Exam: Deferred - Neurological Exam Neurological Exam: Alert, Oriented x3 - Psychiatric Exam Psychiatric exam: Normal Affect - Skin Skin Exam: Dry, Intact Assessment and Plan - Assessment and Plan (Free Text) Assessment: 81 yo male who lives alone and uses a walker to ambulate, with history of DM II , Bipolar I disorder, Dementia, Unsteady Gait causing Multiple falls, Parkinson' s disease was brought here after falling off from his recliner and was not able to get up. He was noted to have trauma on his left lower back region with moderate pain. The patient is presently stable but requires nursing home placement since he lives alone and has been falling frequently. 1) Multiple Falls awaiting placement to [facility] 2) Rhabdomyolysis resolved 3) DM 2 BS better controlled Metformin 850 mg PO daily Glipizide 2.5mg PO daily 4) HTN BP stable Diovan 320mg PO daily Norvasc 10mg PO daily 5) HLD Lipitor 20 mg PO QHS 6) Bipolar Disorder Seroquel 100 mg PO QHS Trazodone 50 mg PO QHS 7) Parkinson's Disease/Dementia Rivastigmine 1 Patch TD daily Sinemet 1 tab PO QID Depakote 250 mg PO BID 8) Gout Allopurinol 100 mg PO daily Colchicine 0.6 mg PO daily
[2017-02-06] MEDS: guaiFENesin DM 100 mg-10 mg/5 ml UD PO PRN ×2 (12:09→16:15)
[2017-02-06 13:48] VITALS: BMI 25.4
[2017-02-07] MEDS: Insulin Regular 100 units/ml SC SCH ×4 (06:59→21:44)
[2017-02-07] MEDS: Divalproex 250 mg DR(BID formulation) PO SCH ×2 (09:32→16:44)
[2017-02-07] MEDS: Carbidopa/Levodopa 25/100 CR PO SCH ×4 (09:32→21:43)
[2017-02-07] MEDS: COLCHICINE 0.6 MG CAPSULE PO SCH (09:32)
[2017-02-07] MEDS: Metoprolol Succinate 25 mg XL Tab PO SCH (09:34)
[2017-02-07] MEDS: GlipiZIDE 2.5 mg SR Tab PO SCH (09:35)
--- NOTE | 2017-02-07 16:36 | CP.PCM.PN ---
Subjective - Date & Time of Evaluation Date of Evaluation: 02/07/17 Time of Evaluation: 11:00 - Subjective Subjective: Pt seen and examined. Denied any complaint aside from being tired of waiting to get out of the hospital Objective - Vital Signs/Intake and Output Vital Signs (last 24 hours): Temp Pulse Resp BP Pulse Ox 98.2 F 88 20 170/87 H 97 02/07/17 07:56 02/07/17 09:34 02/07/17 07:56 02/07/17 09:34 02/07/17 07:56 - Medications Medications: Current Medications Acetaminophen (Tylenol 325mg Tab) 650 mg PO Q4 PRN PRN Reason: Pain, Mild (1-3) Last Admin: 02/07/17 13:25 Dose: 650 mg Allopurinol (Zyloprim) 100 mg PO DAILY [facility] Last Admin: 02/07/17 09:34 Dose: 100 mg Amlodipine Besylate (Norvasc) 10 mg PO DAILY@2100 [facility] Last Admin: 02/06/17 20:38 Dose: 10 mg Aspirin (Ecotrin) 81 mg PO DAILY [facility] Last Admin: 02/07/17 09:32 Dose: 81 mg Atorvastatin Calcium (Lipitor) 20 mg PO HS [facility] Last Admin: 02/06/17 20:59 Dose: 20 mg Carbidopa/Levodopa (Sinemet Cr) 1 tab PO QID [facility] Last Admin: 02/07/17 13:01 Dose: 1 tab Colchicine (Colchicine) 0.6 mg PO DAILY [facility] Last Admin: 02/07/17 09:32 Dose: 0.6 mg Divalproex Sodium (Depakote Dr(*Bid*)) 250 mg PO BID [facility] Last Admin: 02/07/17 09:32 Dose: 250 mg Ergocalciferol (Drisdol 50,000 Intl Units Cap) 1 cap PO QWK [facility] Last Admin: 02/06/17 09:00 Dose: 1 cap Famotidine (Pepcid) 20 mg PO HS [facility] Last Admin: 02/06/17 20:59 Dose: 20 mg Glipizide (Glucotrol Xl) 2.5 mg PO DAILY [facility] Last Admin: 02/07/17 09:35 Dose: 2.5 mg Guaifenesin/Dextromethorphan (Robitussin Dm) 5 ml PO Q4 PRN PRN Reason: Cough Last Admin: 02/06/17 16:15 Dose: 5 ml Insulin Human Regular (Humulin R) 0 units SC [facility] PRN Reason: Protocol Last Admin: 02/07/17 11:18 Dose: 3 units Metformin HCl (Glucophage) 850 mg PO DAILY [facility] Last Admin: 02/07/17 09:32 Dose: 850 mg Metoprolol Succinate (Toprol Xl) 25 mg PO DAILY [facility] Last Admin: 02/07/17 09:34 Dose: 25 mg Quetiapine Fumarate (Seroquel) 100 mg PO [facility] Last Admin: 02/06/17 20:59 Dose: 100 mg Rivastigmine (Exelon 9.5 Mg/24 Hr Patch) 1 patch TD DAILY [facility] Last Admin: 02/07/17 09:35 Dose: 1 patch Tamsulosin HCl (Flomax) 0.4 mg PO DAILY [facility] Last Admin: 02/07/17 09:32 Dose: 0.4 mg Trazodone HCl (Desyrel) 50 mg PO HS [facility] Last Admin: 02/06/17 20:59 Dose: 50 mg Valsartan (Diovan) 320 mg PO DAILY [facility] Last Admin: 02/07/17 09:34 Dose: 320 mg - Labs Labs: 02/04/17 06:30 02/04/17 06:30 PT 12.4 SECONDS (9.6-11.2) H 01/30/17 19:25 INR 1.19 (0.92-1.08) H 01/30/17 19:25 APTT 28.3 SECONDS (23.3-32.5) 01/30/17 19:25 - Constitutional Appears: No Acute Distress - Head Exam Head Exam: ATRAUMATIC - Eye Exam Eye Exam: absent: Scleral icterus - ENT Exam ENT Exam: Mucous Membranes Moist - Neck Exam Neck Exam: absent: Meningismus - Respiratory Exam Respiratory Exam: absent: Rhonchi, Wheezes, Respiratory Distress - Cardiovascular Exam Cardiovascular Exam: REGULAR RHYTHM, +S1, +S2 - GI/Abdominal Exam GI & Abdominal Exam: Soft. absent: Tenderness - Rectal Exam Rectal Exam: Deferred - Neurological Exam Neurological Exam: Alert, Oriented x3 - Psychiatric Exam Psychiatric exam: Normal Affect - Skin Skin Exam: Dry, Intact Assessment and Plan - Assessment and Plan (Free Text) Assessment: 81 yo male who lives alone and uses a walker to ambulate, with history of DM II , Bipolar I disorder, Dementia, Unsteady Gait causing Multiple falls, Parkinson' s disease was brought here after falling off from his recliner and was not able to get up. He was noted to have trauma on his left lower back region with moderate pain. The patient is presently stable but requires service liaison representative placement since he lives alone and has been falling frequently. 1) Multiple Falls awaiting placement 2) DM 2 BS better controlled Metformin 850 mg PO daily Glipizide 2.5mg PO daily 3) HTN BP stable Diovan 320mg PO daily Norvasc 10mg PO daily 4) HLD Lipitor 20 mg PO QHS 5) Bipolar Disorder Seroquel 100 mg PO QHS Trazodone 50 mg PO QHS 6) Parkinson's Disease/Dementia Rivastigmine 1 Patch TD daily Sinemet 1 tab PO QID Depakote 250 mg PO BID 7) Gout Allopurinol 100 mg PO daily Colchicine 0.6 mg PO daily
[2017-02-08] MEDS: guaiFENesin DM 100 mg-10 mg/5 ml UD PO PRN (02:21)
[2017-02-08] MEDS: Insulin Regular 100 units/ml SC SCH ×4 (06:30→22:07)
[2017-02-08] MEDS: COLCHICINE 0.6 MG CAPSULE PO SCH (08:55)
[2017-02-08] MEDS: Divalproex 250 mg DR(BID formulation) PO SCH ×2 (08:55→17:24)
[2017-02-08] MEDS: Carbidopa/Levodopa 25/100 CR PO SCH ×4 (08:55→21:10)
[2017-02-08] MEDS: GlipiZIDE 2.5 mg SR Tab PO SCH (08:57)
[2017-02-08] MEDS: Metoprolol Succinate 25 mg XL Tab PO SCH (10:00)
--- NOTE | 2017-02-08 15:06 | CP.PCM.PN ---
Subjective - Date & Time of Evaluation Date of Evaluation: 02/08/17 Time of Evaluation: 11:00 - Subjective Subjective: Pt seen and examined. No new complaint. Objective - Vital Signs/Intake and Output Vital Signs (last 24 hours): Temp Pulse Resp BP Pulse Ox 98.3 F 75 20 128/70 100 02/08/17 08:42 02/08/17 10:00 02/08/17 08:42 02/08/17 10:00 02/08/17 08:42 - Medications Medications: Current Medications Acetaminophen (Tylenol 325mg Tab) 650 mg PO Q4 PRN PRN Reason: Pain, Mild (1-3) Last Admin: 02/08/17 02:21 Dose: 650 mg Allopurinol (Zyloprim) 100 mg PO DAILY [facility] Last Admin: 02/08/17 08:56 Dose: 100 mg Amlodipine Besylate (Norvasc) 10 mg PO DAILY@2100 [facility] Last Admin: 02/07/17 21:42 Dose: 10 mg Aspirin (Ecotrin) 81 mg PO DAILY [facility] Last Admin: 02/08/17 09:02 Dose: 81 mg Atorvastatin Calcium (Lipitor) 20 mg PO HS [facility] Last Admin: 02/07/17 21:43 Dose: 20 mg Carbidopa/Levodopa (Sinemet Cr) 1 tab PO QID [facility] Last Admin: 02/08/17 12:56 Dose: 1 tab Colchicine (Colchicine) 0.6 mg PO DAILY [facility] Last Admin: 02/08/17 08:55 Dose: 0.6 mg Divalproex Sodium (Depakote Dr(*Bid*)) 250 mg PO BID [facility] Last Admin: 02/08/17 08:55 Dose: 250 mg Ergocalciferol (Drisdol 50,000 Intl Units Cap) 1 cap PO QWK [facility] Last Admin: 02/06/17 09:00 Dose: 1 cap Famotidine (Pepcid) 20 mg PO HS [facility] Last Admin: 02/07/17 21:43 Dose: 20 mg Glipizide (Glucotrol Xl) 2.5 mg PO DAILY [facility] Last Admin: 02/08/17 08:57 Dose: 2.5 mg Guaifenesin/Dextromethorphan (Robitussin Dm) 5 ml PO Q4 PRN PRN Reason: Cough Last Admin: 02/08/17 02:21 Dose: 5 ml Insulin Human Regular (Humulin R) 0 units SC [facility] PRN Reason: Protocol Last Admin: 02/08/17 12:52 Dose: Not Given Metformin HCl (Glucophage) 850 mg PO DAILY [facility] Last Admin: 02/08/17 08:55 Dose: 850 mg Metoprolol Succinate (Toprol Xl) 25 mg PO DAILY [facility] Last Admin: 02/08/17 10:00 Dose: 25 mg Quetiapine Fumarate (Seroquel) 100 mg PO [facility] Last Admin: 02/07/17 21:43 Dose: 100 mg Rivastigmine (Exelon 9.5 Mg/24 Hr Patch) 1 patch TD DAILY [facility] Last Admin: 02/08/17 08:58 Dose: 1 patch Tamsulosin HCl (Flomax) 0.4 mg PO DAILY [facility] Last Admin: 02/08/17 08:56 Dose: 0.4 mg Trazodone HCl (Desyrel) 50 mg PO [facility] Last Admin: 02/07/17 21:44 Dose: 50 mg Valsartan (Diovan) 320 mg PO DAILY [facility] Last Admin: 02/08/17 08:57 Dose: 320 mg - Labs Labs: 02/04/17 06:30 02/04/17 06:30 PT 12.4 SECONDS (9.6-11.2) H 01/30/17 19:25 INR 1.19 (0.92-1.08) H 01/30/17 19:25 APTT 28.3 SECONDS (23.3-32.5) 01/30/17 19:25 - Constitutional Appears: No Acute Distress - Head Exam Head Exam: ATRAUMATIC - Eye Exam Eye Exam: absent: Scleral icterus - ENT Exam ENT Exam: Mucous Membranes Moist - Neck Exam Neck Exam: absent: Meningismus - Respiratory Exam Respiratory Exam: absent: Rhonchi, Wheezes, Respiratory Distress - Cardiovascular Exam Cardiovascular Exam: REGULAR RHYTHM, +S1, +S2 - GI/Abdominal Exam GI & Abdominal Exam: Soft. absent: Tenderness - Rectal Exam Rectal Exam: Deferred - Neurological Exam Neurological Exam: Alert, Oriented x3 - Psychiatric Exam Psychiatric exam: Normal Affect - Skin Skin Exam: Dry, Intact Assessment and Plan - Assessment and Plan (Free Text) Assessment: 81 yo male who lives alone and uses a walker to ambulate, with history of DM II , Bipolar I disorder, Dementia, Unsteady Gait causing Multiple falls, Parkinson' s disease was brought here after falling off from his recliner and was not able to get up. He was noted to have trauma on his left lower back region with moderate pain. The patient is presently stable but requires front desk assistant placement since he lives alone and has been falling frequently. 1) Multiple Falls awaiting placement to [facility] 2) DM 2 BS better controlled Metformin 850 mg PO daily Glipizide 2.5mg PO daily 3) HTN BP stable Diovan 320mg PO daily Norvasc 10mg PO daily 4) HLD Lipitor 20 mg PO QHS 5) Bipolar Disorder Seroquel 100 mg PO QHS Trazodone 50 mg PO QHS 6) Parkinson's Disease/Dementia Rivastigmine 1 Patch TD daily Sinemet 1 tab PO QID Depakote 250 mg PO BID 7) Gout Allopurinol 100 mg PO daily Colchicine 0.6 mg PO daily
[2017-02-09] MEDS: Insulin Regular 100 units/ml SC SCH ×4 (06:34→21:56)
[2017-02-09] MEDS: GlipiZIDE 2.5 mg SR Tab PO SCH (09:44)
[2017-02-09] MEDS: Carbidopa/Levodopa 25/100 CR PO SCH ×4 (09:44→21:55)
[2017-02-09] MEDS: Divalproex 250 mg DR(BID formulation) PO SCH ×2 (09:44→17:02)
[2017-02-09] MEDS: COLCHICINE 0.6 MG CAPSULE PO SCH (09:44)
[2017-02-09] MEDS: Metoprolol Succinate 25 mg XL Tab PO SCH (09:44)
--- NOTE | 2017-02-09 13:15 | CP.PCM.PN ---
Subjective - Date & Time of Evaluation Date of Evaluation: 02/09/17 Time of Evaluation: 13:00 - Subjective Subjective: Pt seen and examined- seem to be in a manic mood as he seem to be talking incessantly to people around him including other pt's visitors. Episodes of depression - there are times when I visit him that he would just cry. Lives alone, found down at home - states ambulates with cane however , fell off from his recliner .( pt has hx of Parkinson's) Does not eat when he feels depressed. At present, in high spirits denies CP no SOB no abd pain Objective - Vital Signs/Intake and Output Vital Signs (last 24 hours): Temp Pulse Resp BP Pulse Ox 98.2 F 89 20 151/80 H 97 02/09/17 08:42 02/09/17 09:44 02/09/17 08:42 02/09/17 09:44 02/09/17 08:42 - Medications Medications: Current Medications Acetaminophen (Tylenol 325mg Tab) 650 mg PO Q4 PRN PRN Reason: Pain, Mild (1-3) Last Admin: 02/09/17 09:43 Dose: 650 mg Allopurinol (Zyloprim) 100 mg PO DAILY [facility] Last Admin: 02/09/17 09:45 Dose: 100 mg Amlodipine Besylate (Norvasc) 10 mg PO DAILY@2100 [facility] Last Admin: 02/08/17 21:11 Dose: 10 mg Aspirin (Ecotrin) 81 mg PO DAILY [facility] Last Admin: 02/09/17 09:45 Dose: 81 mg Atorvastatin Calcium (Lipitor) 20 mg PO HS [facility] Last Admin: 02/08/17 21:10 Dose: 20 mg Carbidopa/Levodopa (Sinemet Cr) 1 tab PO QID [facility] Last Admin: 02/09/17 12:13 Dose: 1 tab Colchicine (Colchicine) 0.6 mg PO DAILY [facility] Last Admin: 02/09/17 09:44 Dose: 0.6 mg Divalproex Sodium (Depakote Dr(*Bid*)) 250 mg PO BID [facility] Last Admin: 02/09/17 09:44 Dose: 250 mg Ergocalciferol (Drisdol 50,000 Intl Units Cap) 1 cap PO QWK [facility] Last Admin: 02/06/17 09:00 Dose: 1 cap Famotidine (Pepcid) 20 mg PO HS [facility] Last Admin: 02/08/17 21:10 Dose: 20 mg Glipizide (Glucotrol Xl) 2.5 mg PO DAILY [facility] Last Admin: 02/09/17 09:44 Dose: 2.5 mg Guaifenesin/Dextromethorphan (Robitussin Dm) 5 ml PO Q4 PRN PRN Reason: Cough Last Admin: 02/08/17 02:21 Dose: 5 ml Insulin Human Regular (Humulin R) 0 units SC [facility] PRN Reason: Protocol Last Admin: 02/09/17 12:14 Dose: 2 units Metformin HCl (Glucophage) 850 mg PO DAILY [facility] Last Admin: 02/09/17 09:45 Dose: 850 mg Metoprolol Succinate (Toprol Xl) 25 mg PO DAILY [facility] Last Admin: 02/09/17 09:44 Dose: 25 mg Quetiapine Fumarate (Seroquel) 100 mg PO [facility] Last Admin: 02/08/17 21:10 Dose: 100 mg Rivastigmine (Exelon 9.5 Mg/24 Hr Patch) 1 patch TD DAILY [facility] Last Admin: 02/09/17 09:46 Dose: 1 patch Tamsulosin HCl (Flomax) 0.4 mg PO DAILY [facility] Last Admin: 02/09/17 09:45 Dose: 0.4 mg Trazodone HCl (Desyrel) 50 mg PO HS [facility] Last Admin: 02/08/17 21:10 Dose: 50 mg Valsartan (Diovan) 320 mg PO DAILY [facility] Last Admin: 02/09/17 09:46 Dose: 320 mg - Labs Labs: 02/04/17 06:30 02/04/17 06:30 PT 12.4 SECONDS (9.6-11.2) H 01/30/17 19:25 INR 1.19 (0.92-1.08) H 01/30/17 19:25 APTT 28.3 SECONDS (23.3-32.5) 01/30/17 19:25 - Constitutional Appears: No Acute Distress - Head Exam Head Exam: NORMAL INSPECTION, NORMOCEPHALIC - Eye Exam Eye Exam: EOMI, Normal appearance Pupil Exam: NORMAL ACCOMODATION - ENT Exam ENT Exam: Mucous Membranes Moist, Normal External Ear Exam - Neck Exam Neck Exam: Full ROM. absent: Meningismus - Respiratory Exam Respiratory Exam: absent: Wheezes, Respiratory Distress - Cardiovascular Exam Cardiovascular Exam: REGULAR RHYTHM, +S1, +S2 - GI/Abdominal Exam GI & Abdominal Exam: Soft, Normal Bowel Sounds. absent: Tenderness - Extremities Exam Extremities Exam: Full ROM, Normal Capillary Refill, Pedal Edema. absent: Calf Tenderness - Back Exam Back Exam: Full ROM. absent: CVA tenderness (L), CVA tenderness (R), paraspinal tenderness, vertebral tenderness - Neurological Exam Neurological Exam: Alert, Awake, CN II-XII Intact, Oriented x3 Additional comments: oriented - Psychiatric Exam Psychiatric exam: Normal Affect, Normal Mood - Skin Skin Exam: Dry, Normal Color, Warm Assessment and Plan - Assessment and Plan (Free Text) Assessment: 81 year old male (PMHx of Dementia, Bipolar Disorder, DM 2, HTN, Parkinson's Disease, Gout) who was admitted on 01/30/17 for further evaluation after he was found on the floor at his residence (where he lives by himself) by his ex- after he had fell out of his recliner. Patient stated that there was NO loss of consciousness and he has been experiencing nonradiating low back pain. CT Lumbar Spine 01/30/17 showed degenerative changs. Chest X Ray 01/30/17 showed Right Upper Lung zone 3mm nodule. He had elevated Lactic Acid upon admission but this normalized by 01/31/17. He had elevated CPK 419 but this declined to 343 with administration of IVF and normalized by 02/02/17. He had Leukocytosis but this also has normalized. CT Head 02/01/17 showed NO intracranial hemorrhage , nonspecific white matter changes, stable left mastoid opacifications, moderate atrophy, right parietal encephalomalacia, and atherosclerosis of intracranial arteries. Patient was evaluated by Psychiatry Dr. Abreu on and it was determined that patient did not require Acute Psychiatry Admission but that patient may require lobsterman placement. Awaiting residential care placement 1). S/P Fall at home PT/OT consulted, pt walks with cane CT Head without contrast 02/01/17 did not show any acute process. 2). Dehydration Resolved BUN/Cr improved 3). Rhabdomyolysis CPK has normalized by 02/02/17 4). Leukocytosis Resolved 5). DM 2 uncontrolled RISS Metformin 850 mg PO 1x/day add low dose Glucotrol 6). HTN uncontrolled Diovan 320mg daily Continue Norvasc at 10 mg PO 1x/day 7). HLD Lipitor 20 mg PO QHS 8). Bipolar Disorder manic most of the time however has episodes of Depression and was admitted with dehydration as he was not eating Seroquel 100 mg PO QHS Trazodone 50 mg PO QHS 9). Parkinson's Disease/Dementia Rivastigmine 1 Patch TD 1x/day Sinemet 1 tab PO 4x/day Depakote 250 mg PO 2x/day PT consulted ambulates with a cane 10). Gout Allopurinol 100 mg PO 1x/day Colcrys 0.6 mg PO 1x/day 11). Prophylactic Measures Tylenol 650 mg PO Q4H PRN Pain 1-3 Tramadol 50 mg PO Q4H PRN Pain 4-10 ASA 81 mg PO 1x/day Vit D 50,000 1 Cap once/week Pepcid 20 mg PO QHS Flomax 0.4 mg PO 1x/day Lovenox 40 mg daily
[2017-02-10 08:20] LABS: HEMATOCRIT 38.6 % (35.0-51.0); MEAN CELL VOLUME 90.3 fl (80.0-94.0); MEAN CORPUSCULAR HEMOGLOBIN 29.6 pg (27.0-31.0); MEAN CORPUSCULAR HGB CONC 32.8 g/dL (33.0-37.0); RED CELL DISTRIBUTION WIDTH 14.9 % (11.5-14.5); WHITE BLOOD COUNT 8.5 K/uL (4.8-10.8)
[2017-02-10 08:39] LABS: BLOOD UREA NITROGEN 20 mg/dl (9-20); CALCIUM 8.9 mg/dL (8.4-10.2); CARBON DIOXIDE 29 mmol/L (22-30); CHLORIDE 100 mmol/L (98-107); GFR AFRICAN-AMERICAN > 60; GLUCOSE,RANDOM 170 mg/dL (75-110); POTASSIUM 4.2 MMOL/L (3.6-5.0); SODIUM 143 mmol/l (132-148)
[2017-02-10] MEDS: Divalproex 250 mg DR(BID formulation) PO SCH ×2 (09:05→16:26)
[2017-02-10] MEDS: Carbidopa/Levodopa 25/100 CR PO SCH ×4 (09:05→21:09)
[2017-02-10] MEDS: Enoxaparin 40 mg Syringe SC SCH (09:05)
[2017-02-10] MEDS: GlipiZIDE 2.5 mg SR Tab PO SCH (09:06)
[2017-02-10] MEDS: Metoprolol Succinate 25 mg XL Tab PO SCH (09:06)
[2017-02-10] MEDS: COLCHICINE 0.6 MG CAPSULE PO SCH (09:06)
[2017-02-10] MEDS: Insulin Regular 100 units/ml SC SCH ×4 (09:45→23:07)
--- NOTE | 2017-02-10 14:12 | CP.PCM.PN ---
Subjective - Date & Time of Evaluation Date of Evaluation: 02/10/17 Time of Evaluation: 13:30 - Subjective Subjective: Patient was seen and examined bedside.Comfortable in NAD, denies any pain or discomfort. Hemodynamically stable, afebrile. Seem to be in a manic mood, with fast passed taking , with tearing episodes when his and son are mentioned. Lives alone with no supervision and as per family unable to take care of self . Objective - Vital Signs/Intake and Output Vital Signs (last 24 hours): Temp Pulse Resp BP Pulse Ox 97.4 F L 82 20 143/82 91 L 02/10/17 08:23 02/10/17 09:06 02/10/17 08:23 02/10/17 09:06 02/10/17 08:23 - Medications Medications: Current Medications Acetaminophen (Tylenol 325mg Tab) 650 mg PO Q4 PRN PRN Reason: Pain, Mild (1-3) Last Admin: 02/10/17 12:09 Dose: 650 mg Allopurinol (Zyloprim) 100 mg PO DAILY [facility] Last Admin: 02/10/17 09:05 Dose: 100 mg Amlodipine Besylate (Norvasc) 10 mg PO DAILY@2100 [facility] Last Admin: 02/09/17 21:55 Dose: 10 mg Aspirin (Ecotrin) 81 mg PO DAILY [facility] Last Admin: 02/10/17 09:06 Dose: 81 mg Atorvastatin Calcium (Lipitor) 20 mg PO HS [facility] Last Admin: 02/09/17 21:55 Dose: 20 mg Carbidopa/Levodopa (Sinemet Cr) 1 tab PO QID [facility] Last Admin: 02/10/17 12:02 Dose: 1 tab Colchicine (Colchicine) 0.6 mg PO DAILY [facility] Last Admin: 02/10/17 09:06 Dose: 0.6 mg Divalproex Sodium (Depakote Dr(*Bid*)) 250 mg PO BID [facility] Last Admin: 02/10/17 09:05 Dose: 250 mg Enoxaparin Sodium (Lovenox) 40 mg SC DAILY [facility] PRN Reason: Protocol Last Admin: 02/10/17 09:05 Dose: 40 mg Ergocalciferol (Drisdol 50,000 Intl Units Cap) 1 cap PO QWK [facility] Last Admin: 02/06/17 09:00 Dose: 1 cap Famotidine (Pepcid) 20 mg PO HS [facility] Last Admin: 02/09/17 21:55 Dose: 20 mg Glipizide (Glucotrol Xl) 2.5 mg PO DAILY [facility] Last Admin: 02/10/17 09:06 Dose: 2.5 mg Guaifenesin/Dextromethorphan (Robitussin Dm) 5 ml PO Q4 PRN PRN Reason: Cough Last Admin: 02/08/17 02:21 Dose: 5 ml Insulin Human Regular (Humulin R) 0 units SC [facility] PRN Reason: Protocol Last Admin: 02/10/17 12:02 Dose: 2 units Metformin HCl (Glucophage) 850 mg PO DAILY [facility] Last Admin: 02/10/17 09:06 Dose: 850 mg Metoprolol Succinate (Toprol Xl) 25 mg PO DAILY [facility] Last Admin: 02/10/17 09:06 Dose: 25 mg Quetiapine Fumarate (Seroquel) 100 mg PO HS [facility] Last Admin: 02/09/17 21:55 Dose: 100 mg Rivastigmine (Exelon 9.5 Mg/24 Hr Patch) 1 patch TD DAILY [facility] Last Admin: 02/10/17 09:07 Dose: 1 patch Tamsulosin HCl (Flomax) 0.4 mg PO DAILY [facility] Last Admin: 02/10/17 09:06 Dose: 0.4 mg Trazodone HCl (Desyrel) 50 mg PO HS [facility] Last Admin: 02/09/17 21:55 Dose: 50 mg Valsartan (Diovan) 320 mg PO DAILY [facility] Last Admin: 02/10/17 09:06 Dose: 320 mg - Labs Labs: 02/10/17 06:10 02/10/17 06:10 PT 12.4 SECONDS (9.6-11.2) H 01/30/17 19:25 INR 1.19 (0.92-1.08) H 01/30/17 19:25 APTT 28.3 SECONDS (23.3-32.5) 01/30/17 19:25 - Constitutional Appears: Non-toxic, No Acute Distress - Head Exam Head Exam: ATRAUMATIC, NORMAL INSPECTION, NORMOCEPHALIC - Eye Exam Eye Exam: EOMI, Normal appearance, PERRL Pupil Exam: NORMAL ACCOMODATION - ENT Exam ENT Exam: Mucous Membranes Moist, Normal Exam - Neck Exam Neck Exam: Full ROM, Normal Inspection - Respiratory Exam Respiratory Exam: Clear to Ausculation Bilateral, NORMAL BREATHING PATTERN. absent: Rales, Rhonchi, Wheezes - Cardiovascular Exam Cardiovascular Exam: REGULAR RHYTHM, RRR, +S1, +S2. absent: JVD - GI/Abdominal Exam GI & Abdominal Exam: Soft, Normal Bowel Sounds. absent: Distended, Guarding, Rebound - Rectal Exam Rectal Exam: Deferred - Extremities Exam Extremities Exam: Full ROM, Normal Capillary Refill, Normal Inspection. absent : Calf Tenderness, Pedal Edema - Back Exam Back Exam: NORMAL INSPECTION - Neurological Exam Neurological Exam: Alert, Awake, CN II-XII Intact, Oriented x3 - Psychiatric Exam Psychiatric exam: Manic - Skin Skin Exam: Dry, Intact, Normal Color, Warm Assessment and Plan - Assessment and Plan (Free Text) Assessment: 81 year old male (PMHx of Dementia, Bipolar Disorder, DM 2, HTN, Parkinson's Disease, Gout) was admitted on 01/30/17 for further evaluation after he was found on the floor at his residence (where he lives by himself) by his ex- after he had fell out of his recliner. Patient stated that there was NO loss of consciousness and he has been experiencing nonradiating low back pain. CT Lumbar Spine 01/30/17 showed degenerative changes. Chest X Ray 01/30/17 showed Right Upper Lung zone 3mm nodule. He had elevated Lactic Acid upon admission but this normalized by 01/31/17. He had elevated CPK 419 but this decreased to 343 with administration of IVF and normalized by 02/02/17. He had Leukocytosis but this also has normalized. CT Head 02/01/17 showed NO intracranial hemorrhage , nonspecific white matter changes, stable left mastoid opacifications, moderate atrophy, right parietal encephalomalacia, and atherosclerosis of intracranial arteries. Patient was evaluated by Psychiatry Dr. Abreu on and it was determined that patient did not require Acute Psychiatry Admission but that patient may require fpc placement since he lives by himself and can not take care of self. Awaiting fpc care placement 1. S/P Fall at home PT/OT consulted, pt walks with cane CT Head without contrast 02/01/17 did not show any acute process. 2. Dehydration Resolved BUN/Cr improved 3. Rhabdomyolysis CPK has normalized by 02/02/17 4. Leukocytosis Resolved 5. DM 2 uncontrolled RISS Metformin 850 mg PO 1x/day low dose Glucotrol 6. HTN better controlled now Diovan 320mg daily Continue Norvasc at 10 mg PO 1x/day 7. HLD Lipitor 20 mg PO QHS 8. Bipolar Disorder manic most of the time however has episodes of Depression with crying spells Seroquel 100 mg PO QHS Trazodone 50 mg PO QHS 9. Parkinson's Disease/Dementia Rivastigmine 1 Patch TD 1x/day Sinemet 1 tab PO 4x/day Depakote 250 mg PO 2x/day PT consulted ambulates with a cane 10. Gout Allopurinol 100 mg PO 1x/day Colcrys 0.6 mg PO 1x/day 11. Prophylactic Measures Tylenol 650 mg PO Q4H PRN Pain 1-3 Tramadol 50 mg PO Q4H PRN Pain 4-10 ASA 81 mg PO 1x/day Vit D 50,000 1 Cap once/week Pepcid 20 mg PO QHS Flomax 0.4 mg PO 1x/day Lovenox 40 mg daily
--- NOTE | 2017-02-11 05:15 | CP.PCM.PCO ---
Physician Communication Note - Physician Communication Note Physician Communication Note: Patient stated that he fell to the floor. this was unwitnessed.
[2017-02-11] MEDS: Insulin Regular 100 units/ml SC SCH ×4 (06:41→22:09)
[2017-02-11 08:06] VITALS: RESP 20
[2017-02-11] MEDS: COLCHICINE 0.6 MG CAPSULE PO SCH (09:22)
[2017-02-11] MEDS: Divalproex 250 mg DR(BID formulation) PO SCH ×2 (09:22→17:23)
[2017-02-11] MEDS: GlipiZIDE 2.5 mg SR Tab PO SCH (09:24)
[2017-02-11] MEDS: Enoxaparin 40 mg Syringe SC SCH (09:24)
[2017-02-11] MEDS: Metoprolol Succinate 25 mg XL Tab PO SCH (09:25)
[2017-02-11] MEDS: Carbidopa/Levodopa 25/100 CR PO SCH ×4 (09:25→21:22)
--- NOTE | 2017-02-11 16:47 | CP.PCM.PN ---
Subjective - Date & Time of Evaluation Date of Evaluation: 02/11/17 Time of Evaluation: 15:00 - Subjective Subjective: Patient see n and evaluated. Hemodynamically stable, afebrile. Ambulating in unit No acute issues Manic Objective - Vital Signs/Intake and Output Vital Signs (last 24 hours): Temp Pulse Resp BP Pulse Ox 98.2 F 79 20 147/80 99 02/11/17 08:06 02/11/17 09:25 02/11/17 08:06 02/11/17 09:25 02/11/17 08:06 - Medications Medications: Current Medications Acetaminophen (Tylenol 325mg Tab) 650 mg PO Q4 PRN PRN Reason: Pain, Mild (1-3) Last Admin: 02/11/17 05:11 Dose: 650 mg Allopurinol (Zyloprim) 100 mg PO DAILY [facility] Last Admin: 02/11/17 09:25 Dose: 100 mg Amlodipine Besylate (Norvasc) 10 mg PO DAILY@2100 [facility] Last Admin: 02/10/17 21:07 Dose: 10 mg Aspirin (Ecotrin) 81 mg PO DAILY [facility] Last Admin: 02/11/17 09:23 Dose: 81 mg Atorvastatin Calcium (Lipitor) 20 mg PO HS [facility] Last Admin: 02/10/17 21:10 Dose: 20 mg Carbidopa/Levodopa (Sinemet Cr) 1 tab PO QID [facility] Last Admin: 02/11/17 12:47 Dose: 1 tab Colchicine (Colchicine) 0.6 mg PO DAILY [facility] Last Admin: 02/11/17 09:22 Dose: 0.6 mg Divalproex Sodium (Depakote Dr(*Bid*)) 250 mg PO BID [facility] Last Admin: 02/11/17 09:22 Dose: 250 mg Enoxaparin Sodium (Lovenox) 40 mg SC DAILY [facility] PRN Reason: Protocol Last Admin: 02/11/17 09:24 Dose: 40 mg Ergocalciferol (Drisdol 50,000 Intl Units Cap) 1 cap PO QWK [facility] Last Admin: 02/06/17 09:00 Dose: 1 cap Famotidine (Pepcid) 20 mg PO HS [facility] Last Admin: 02/10/17 21:09 Dose: 20 mg Glipizide (Glucotrol Xl) 2.5 mg PO DAILY [facility] Last Admin: 02/11/17 09:24 Dose: 2.5 mg Guaifenesin/Dextromethorphan (Robitussin Dm) 5 ml PO Q4 PRN PRN Reason: Cough Last Admin: 02/08/17 02:21 Dose: 5 ml Insulin Human Regular (Humulin R) 0 units SC [facility] PRN Reason: Protocol Last Admin: 02/11/17 12:46 Dose: 2 units Metformin HCl (Glucophage) 850 mg PO DAILY [facility] Last Admin: 02/11/17 09:24 Dose: 850 mg Metoprolol Succinate (Toprol Xl) 25 mg PO DAILY [facility] Last Admin: 02/11/17 09:25 Dose: 25 mg Quetiapine Fumarate (Seroquel) 100 mg PO [facility] Last Admin: 02/10/17 21:10 Dose: 100 mg Rivastigmine (Exelon 9.5 Mg/24 Hr Patch) 1 patch TD DAILY [facility] Last Admin: 02/11/17 09:23 Dose: 1 patch Tamsulosin HCl (Flomax) 0.4 mg PO DAILY [facility] Last Admin: 02/11/17 09:23 Dose: 0.4 mg Trazodone HCl (Desyrel) 50 mg PO HS [facility] Last Admin: 02/10/17 21:10 Dose: 50 mg Valsartan (Diovan) 320 mg PO DAILY [facility] Last Admin: 02/11/17 09:22 Dose: 320 mg - Labs Labs: 02/10/17 06:10 02/10/17 06:10 PT 12.4 SECONDS (9.6-11.2) H 01/30/17 19:25 INR 1.19 (0.92-1.08) H 01/30/17 19:25 APTT 28.3 SECONDS (23.3-32.5) 01/30/17 19:25 - Constitutional Appears: Non-toxic, No Acute Distress - Head Exam Head Exam: ATRAUMATIC, NORMAL INSPECTION, NORMOCEPHALIC - Eye Exam Eye Exam: EOMI, Normal appearance, PERRL Pupil Exam: NORMAL ACCOMODATION - ENT Exam ENT Exam: Mucous Membranes Moist, Normal Exam - Neck Exam Neck Exam: Full ROM, Normal Inspection - Respiratory Exam Respiratory Exam: Clear to Ausculation Bilateral, NORMAL BREATHING PATTERN. absent: Rales, Rhonchi, Wheezes - Cardiovascular Exam Cardiovascular Exam: REGULAR RHYTHM, RRR, +S1, +S2. absent: JVD - GI/Abdominal Exam GI & Abdominal Exam: Soft, Normal Bowel Sounds. absent: Distended, Guarding, Tenderness, Rebound - Rectal Exam Rectal Exam: Deferred - Extremities Exam Extremities Exam: Full ROM, Normal Capillary Refill, Normal Inspection. absent : Calf Tenderness, Pedal Edema - Back Exam Back Exam: NORMAL INSPECTION - Neurological Exam Neurological Exam: Alert, Awake, CN II-XII Intact, Oriented x3 - Psychiatric Exam Psychiatric exam: Manic - Skin Skin Exam: Dry, Intact, Normal Color, Warm Assessment and Plan - Assessment and Plan (Free Text) Assessment: 81 year old male (PMHx of Dementia, Bipolar Disorder, DM 2, HTN, Parkinson's Disease, Gout) was admitted on 01/30/17 for further evaluation after he was found on the floor at his residence (where he lives by himself) by his ex- after he had fell out of his recliner. Patient stated that there was NO loss of consciousness and he has been experiencing nonradiating low back pain. CT Lumbar Spine 01/30/17 showed degenerative changes. Chest X Ray 01/30/17 showed Right Upper Lung zone 3mm nodule. He had elevated Lactic Acid upon admission but this normalized by 01/31/17. He had elevated CPK 419 but this decreased to 343 with administration of IVF and normalized by 02/02/17. He had Leukocytosis but this also has normalized. CT Head 02/01/17 showed NO intracranial hemorrhage , nonspecific white matter changes, stable left mastoid opacifications, moderate atrophy, right parietal encephalomalacia, and atherosclerosis of intracranial arteries. Patient was evaluated by Psychiatry Dr. Abreu on and it was determined that patient did not require Acute Psychiatry Admission but that patient may require correction placement since he lives by himself and can not take care of self. Awaiting senior loss control specialist care placement 1. S/P Fall at home PT/OT consulted, pt walks with cane CT Head without contrast 02/01/17 did not show any acute process. 2. Dehydration Resolved BUN/Cr improved 3. Rhabdomyolysis CPK has normalized by 02/02/17 4. Leukocytosis Resolved 5. DM 2 uncontrolled RISS Metformin 850 mg PO 1x/day low dose Glucotrol 6. HTN better controlled now Diovan 320mg daily Continue Norvasc at 10 mg PO 1x/day 7. HLD Lipitor 20 mg PO QHS 8. Bipolar Disorder manic most of the time however has episodes of Depression with crying spells Seroquel 100 mg PO QHS Trazodone 50 mg PO QHS 9. Parkinson's Disease/Dementia Rivastigmine 1 Patch TD 1x/day Sinemet 1 tab PO 4x/day Depakote 250 mg PO 2x/day PT consulted ambulates with a cane 10. Gout Allopurinol 100 mg PO 1x/day Colcrys 0.6 mg PO 1x/day 11. Prophylactic Measures Tylenol 650 mg PO Q4H PRN Pain 1-3 Tramadol 50 mg PO Q4H PRN Pain 4-10 ASA 81 mg PO 1x/day Vit D 50,000 1 Cap once/week Pepcid 20 mg PO QHS Flomax 0.4 mg PO 1x/day Lovenox 40 mg daily
[2017-02-12] MEDS: Insulin Regular 100 units/ml SC SCH ×4 (07:00→22:02)
[2017-02-12] MEDS: GlipiZIDE 2.5 mg SR Tab PO SCH (08:50)
[2017-02-12] MEDS: Divalproex 250 mg DR(BID formulation) PO SCH ×2 (08:50→16:26)
[2017-02-12] MEDS: Enoxaparin 40 mg Syringe SC SCH (08:51)
[2017-02-12] MEDS: COLCHICINE 0.6 MG CAPSULE PO SCH (08:52)
[2017-02-12] MEDS: Carbidopa/Levodopa 25/100 CR PO SCH ×5 (08:54→22:04)
[2017-02-12] MEDS: Metoprolol Succinate 25 mg XL Tab PO SCH (10:08)
--- NOTE | 2017-02-12 13:23 | CP.PCM.PN ---
Subjective - Date & Time of Evaluation Date of Evaluation: 02/12/17 Time of Evaluation: 12:30 - Subjective Subjective: Patient seen and evaluated . Ambulating in unit in NAD. Hemodynamically stable, afebrile. No acute issues overnight. With fast and pressured speech for discharge home in Am with daughter Objective - Vital Signs/Intake and Output Vital Signs (last 24 hours): Temp Pulse Resp BP Pulse Ox 98.3 F 77 20 146/80 97 02/12/17 07:59 02/12/17 07:59 02/12/17 07:59 02/12/17 10:08 02/12/17 07:59 - Medications Medications: Current Medications Acetaminophen (Tylenol 325mg Tab) 650 mg PO Q4 PRN PRN Reason: Pain, Mild (1-3) Last Admin: 02/12/17 10:15 Dose: 650 mg Allopurinol (Zyloprim) 100 mg PO DAILY [facility] Last Admin: 02/12/17 08:50 Dose: 100 mg Amlodipine Besylate (Norvasc) 10 mg PO DAILY@2100 [facility] Last Admin: 02/11/17 21:19 Dose: 10 mg Aspirin (Ecotrin) 81 mg PO DAILY [facility] Last Admin: 02/12/17 08:52 Dose: 81 mg Atorvastatin Calcium (Lipitor) 20 mg PO HS [facility] Last Admin: 02/11/17 21:22 Dose: 20 mg Carbidopa/Levodopa (Sinemet Cr) 1 tab PO QID [facility] Last Admin: 02/12/17 12:02 Dose: 1 tab Colchicine (Colchicine) 0.6 mg PO DAILY [facility] Last Admin: 02/12/17 08:52 Dose: 0.6 mg Divalproex Sodium (Depakote Dr(*Bid*)) 250 mg PO BID [facility] Last Admin: 02/12/17 08:50 Dose: 250 mg Enoxaparin Sodium (Lovenox) 40 mg SC DAILY [facility] PRN Reason: Protocol Last Admin: 02/12/17 08:51 Dose: 40 mg Ergocalciferol (Drisdol 50,000 Intl Units Cap) 1 cap PO QWK [facility] Last Admin: 02/06/17 09:00 Dose: 1 cap Famotidine (Pepcid) 20 mg PO HS [facility] Last Admin: 02/11/17 21:22 Dose: 20 mg Glipizide (Glucotrol Xl) 2.5 mg PO DAILY [facility] Last Admin: 02/12/17 08:50 Dose: 2.5 mg Guaifenesin/Dextromethorphan (Robitussin Dm) 5 ml PO Q4 PRN PRN Reason: Cough Last Admin: 02/08/17 02:21 Dose: 5 ml Insulin Human Regular (Humulin R) 0 units SC [facility] PRN Reason: Protocol Last Admin: 02/12/17 12:03 Dose: 3 units Metformin HCl (Glucophage) 850 mg PO DAILY [facility] Last Admin: 02/12/17 08:49 Dose: 850 mg Metoprolol Succinate (Toprol Xl) 25 mg PO DAILY [facility] Last Admin: 02/12/17 10:08 Dose: 25 mg Quetiapine Fumarate (Seroquel) 100 mg PO HS [facility] Last Admin: 02/11/17 21:22 Dose: 100 mg Rivastigmine (Exelon 9.5 Mg/24 Hr Patch) 1 patch TD DAILY [facility] Last Admin: 02/12/17 08:50 Dose: 1 patch Tamsulosin HCl (Flomax) 0.4 mg PO DAILY [facility] Last Admin: 02/12/17 08:49 Dose: 0.4 mg Trazodone HCl (Desyrel) 50 mg PO HS [facility] Last Admin: 02/11/17 21:22 Dose: 50 mg Valsartan (Diovan) 320 mg PO DAILY [facility] Last Admin: 02/12/17 08:52 Dose: 320 mg - Labs Labs: 02/10/17 06:10 02/10/17 06:10 PT 12.4 SECONDS (9.6-11.2) H 01/30/17 19:25 INR 1.19 (0.92-1.08) H 01/30/17 19:25 APTT 28.3 SECONDS (23.3-32.5) 01/30/17 19:25 - Constitutional Appears: Non-toxic, No Acute Distress - Head Exam Head Exam: ATRAUMATIC, NORMOCEPHALIC - Eye Exam Eye Exam: EOMI, Normal appearance, PERRL Pupil Exam: NORMAL ACCOMODATION - Neck Exam Neck Exam: Full ROM, Normal Inspection - Respiratory Exam Respiratory Exam: Clear to Ausculation Bilateral, NORMAL BREATHING PATTERN. absent: Rales, Rhonchi, Wheezes - Cardiovascular Exam Cardiovascular Exam: REGULAR RHYTHM, RRR, +S1, +S2. absent: JVD - GI/Abdominal Exam GI & Abdominal Exam: Soft, Normal Bowel Sounds. absent: Distended, Guarding, Tenderness, Rebound - Rectal Exam Rectal Exam: Deferred - Extremities Exam Extremities Exam: Full ROM, Normal Capillary Refill, Normal Inspection. absent : Pedal Edema - Back Exam Back Exam: NORMAL INSPECTION - Neurological Exam Neurological Exam: Alert, Awake, CN II-XII Intact, Oriented x3 Additional comments: pressured speech , fast - Psychiatric Exam Psychiatric exam: Manic - Skin Skin Exam: Dry, Intact, Normal Color, Warm Assessment and Plan - Assessment and Plan (Free Text) Assessment: 81 year old male (PMHx of Dementia, Bipolar Disorder, DM 2, HTN, Parkinson's Disease, Gout) was admitted on 01/30/17 for further evaluation after he was found on the floor at his residence (where he lives by himself) by his ex- after he had fell out of his recliner. Patient stated that there was NO loss of consciousness and he has been experiencing nonradiating low back pain. CT Lumbar Spine 01/30/17 showed degenerative changes. Chest X Ray 01/30/17 showed Right Upper Lung zone 3mm nodule. He had elevated Lactic Acid upon admission but this normalized by 01/31/17. He had elevated CPK 419 but this decreased to 343 with administration of IVF and normalized by 02/02/17. He had Leukocytosis but this also has normalized. CT Head 02/01/17 showed NO intracranial hemorrhage , nonspecific white matter changes, stable left mastoid opacifications, moderate atrophy, right parietal encephalomalacia, and atherosclerosis of intracranial arteries. Patient was evaluated by Psychiatry Dr. Abreu on and it was determined that patient did not require Acute Psychiatry Admission but that patient may require chief recordist placement since he lives by himself and can not take care of self.Patient was referred for placement but he wants to go home. Patient is competent and still able to make decisions for himself. Discussed with daughter and ex ands will arrange to discharge patient home in AM 1. S/P Fall at home PT/OT consulted, pt walks with cane and stable gait CT Head without contrast 02/01/17 did not show any acute process. 2. Dehydration Resolved BUN/Cr improved 3. Rhabdomyolysis CPK has normalized by 02/02/17 4. Leukocytosis Resolved 5. DM 2 uncontrolled RISS Metformin 850 mg PO 1x/day low dose Glucotrol 6. HTN better controlled now Diovan 320mg daily Continue Norvasc at 10 mg PO 1x/day 7. HLD Lipitor 20 mg PO QHS 8. Bipolar Disorder manic most of the time however has episodes of Depression with crying spells Psych consulted . Patient does not require acute psych admission Continue Seroquel 100 mg PO QHS and Trazodone 50 mg PO QHS 9. Parkinson's Disease/Dementia Rivastigmine 1 Patch TD 1x/day Sinemet 1 tab PO 4x/day Depakote 250 mg PO 2x/day psych consulted patient is competent to make decisions ambulates with a cane 10. Gout Allopurinol 100 mg PO 1x/day Colcrys 0.6 mg PO 1x/day 11. Prophylactic Measures Pepcid 20 mg PO QHS Lovenox 40 mg daily
[2017-02-13] MEDS: Insulin Regular 100 units/ml SC SCH ×2 (06:29→12:12)
[2017-02-13 08:38] VITALS: TEMP 98.2; O2SAT 98
[2017-02-13] MEDS: Divalproex 250 mg DR(BID formulation) PO SCH (08:42)
[2017-02-13] MEDS: COLCHICINE 0.6 MG CAPSULE PO SCH (08:42)
[2017-02-13] MEDS: Enoxaparin 40 mg Syringe SC SCH (08:44)
[2017-02-13] MEDS: GlipiZIDE 2.5 mg SR Tab PO SCH (08:44)
[2017-02-13] MEDS: Metoprolol Succinate 25 mg XL Tab PO SCH (08:45)
[2017-02-13] MEDS: Carbidopa/Levodopa 25/100 CR PO SCH ×2 (08:45→12:11)
[2017-02-13] MEDS ORDERED: Metoprolol Succinate 50 mg XL Tab PO SCH (09:05)
--- NOTE | 2017-02-13 09:55 | CP.PCM.DIS ---
Provider - Provider Date of Admission: 02/01/17 22:17 Attending physician: Dex Bauer Primary care physician: Dr Tenorio Consults: Psych: Dr Abreu Time Spent in preparation of Discharge (in minutes): 30 Diagnosis - Discharge Diagnosis (1) Fall Status: Acute (2) Dehydration Status: Acute (3) Low back pain Status: Acute (4) Rhabdomyolysis Status: Acute (5) Bipolar disorder Status: Chronic (6) Parkinsons Status: Chronic (7) DM2 (diabetes mellitus, type 2) Status: Chronic (8) Gout Status: Chronic (9) HTN (hypertension) Status: Chronic Hospital Course - Lab Results Lab Results: Most Recent Lab Values WBC 8.5 K/uL (4.8-10.8) 02/10/17 06:10 RBC 4.27 Mil/uL (4.40-5.90) L 02/10/17 06:10 Hgb 12.7 g/dL (12.0-18.0) 02/10/17 06:10 Hct 38.6 % (35.0-51.0) 02/10/17 06:10 MCV 90.3 fl (80.0-94.0) 02/10/17 06:10 MCH 29.6 pg (27.0-31.0) 02/10/17 06:10 MCHC 32.8 g/dL (33.0-37.0) L 02/10/17 06:10 RDW 14.9 % (11.5-14.5) H 02/10/17 06:10 Plt Count 297 K/uL (130-400) 02/10/17 06:10 MPV 9.5 fl (7.2-11.7) 02/04/17 06:30 Neut % (Auto) 66.3 % (50.0-75.0) 02/04/17 06:30 Lymph % (Auto) 18.3 % (20.0-40.0) L 02/04/17 06:30 Pike % (Auto) 10.9 % (0.0-10.0) H 02/04/17 06:30 Eos % (Auto) 3.7 % (0.0-4.0) 02/04/17 06:30 Baso % (Auto) 0.8 % (0.0-2.0) 02/04/17 06:30 Neut # 4.4 K/uL (1.8-7.0) 02/04/17 06:30 Lymph # 1.2 K/uL (1.0-4.3) 02/04/17 06:30 Pike # 0.7 K/uL (0.0-0.8) 02/04/17 06:30 Eos # 0.2 K/uL (0.0-0.7) 02/04/17 06:30 Baso # 0.1 K/uL (0.0-0.2) 02/04/17 06:30 Neutrophils % (Manual) 93 % (42-75) H 01/30/17 19:25 Lymphocytes % (Manual) 3 % (20-50) L 01/30/17 19:25 Reactive Lymphs % 1 % (0-0) H 01/30/17 19:25 Monocytes % (Manual) 3 % (0-10) 01/30/17 19:25 Platelet Estimate Normal (NORMAL) 01/30/17 19:25 Anisocytosis (manual) Slight 01/30/17 19:25 PT 12.4 SECONDS (9.6-11.2) H 01/30/17 19:25 INR 1.19 (0.92-1.08) H 01/30/17 19:25 APTT 28.3 SECONDS (23.3-32.5) 01/30/17 19:25 Sodium 143 mmol/l (132-148) 02/10/17 06:10 Potassium 4.2 MMOL/L (3.6-5.0) 02/10/17 06:10 Chloride 100 mmol/L (98-107) 02/10/17 06:10 Carbon Dioxide 29 mmol/L (22-30) 02/10/17 06:10 Anion Gap 18 (10-20) 02/10/17 06:10 BUN 20 mg/dl (9-20) 02/10/17 06:10 Creatinine 0.9 mg/dL (0.8-1.5) 02/10/17 06:10 Est GFR ( Amer) > 60 02/10/17 06:10 Est GFR (Non-Af Amer) > 60 02/10/17 06:10 POC Glucose (mg/dL) 199 mg/dL (65-110) H 02/13/17 06:17 Random Glucose 170 mg/dL (75-110) H 02/10/17 06:10 Lactic Acid 0.8 MMOL/L (0.7-2.1) 02/01/17 06:00 Calcium 8.9 mg/dL (8.4-10.2) 02/10/17 06:10 Total Bilirubin 1.0 mg/dl (0.2-1.3) 01/30/17 19:25 AST 41 U/L (17-59) 01/30/17 19:25 ALT 29 U/L (21-72) 01/30/17 19:25 Alkaline Phosphatase 96 U/L (38-126) 01/30/17 19:25 Total Creatine Kinase 118 U/L (55-170) 02/02/17 05:40 Total Protein 7.9 G/DL (6.3-8.2) 01/30/17 19:25 Albumin 3.9 g/dL (3.5-5.0) 01/30/17 19:25 Globulin 3.9 gm/dL (2.2-3.9) 01/30/17 19:25 Albumin/Globulin Ratio 1.0 (1.0-2.1) 01/30/17 19:25 Thyroxine (T4) 6.94 ug/dl (5.5-11.0) 02/02/17 05:40 TSH 3rd Generation 3.58 mIU/ML (0.46-4.68) 02/02/17 05:40 Urine Color Yellow (YELLOW) 01/30/17 19:25 Urine Clarity Clear (Clear) 01/30/17 19:25 Urine pH 6.0 (5.0-8.0) 01/30/17 19:25 Ur Specific [place] 1.017 (1.003-1.030) 01/30/17 19:25 Urine Protein 100 mg/dL (NEGATIVE) 01/30/17 19:25 Urine Glucose (UA) >=500 mg/dL (Normal) 01/30/17 19:25 Urine Ketones 80 mg/dL (NEGATIVE) 01/30/17 19:25 Urine Blood Small (NEGATIVE) 01/30/17 19:25 Urine Nitrate Negative (NEGATIVE) 01/30/17 19:25 Urine Bilirubin Negative (NEGATIVE) 01/30/17 19:25 Urine Urobilinogen 0.2-1.0 mg/dL (0.2-1.0) 01/30/17 19:25 Ur Leukocyte Esterase Neg [place]/uL (Negative) 01/30/17 19:25 Urine RBC (Auto) 6 /hpf (0-3) H 01/30/17 19:25 Urine Microscopic WBC 2 /hpf (0-5) 01/30/17 19:25 Urine Bacteria Rare (<OCC) 01/30/17 19:25 Hyaline Casts 6-10 /hpf (0-2) H 01/30/17 19:25 - Hospital Course Hospital Course: 81 year old male (PMHx of Dementia, Bipolar Disorder, DM 2, HTN, Parkinson's Disease, Gout) was admitted on 01/30/17 for further evaluation after he was found on the floor at his residence (where he lives by himself) by his ex- after he had fallen off his recliner. Patient stated that there was NO loss of consciousness and he has been experiencing nonradiating low back pain. CT Lumbar Spine 01/30/17 showed degenerative changes. Chest X Ray 01/30/17 showed Right Upper Lung zone 3mm nodule. He had elevated Lactic Acid upon admission but this normalized by 01/31/17. He had elevated CPK 419 but this decreased to 343 with administration of IVF and normalized by 02/02/17. He had Leukocytosis but this also has normalized. CT Head 02/01/17 showed NO intracranial hemorrhage , nonspecific white matter changes, stable left mastoid opacifications, moderate atrophy, right parietal encephalomalacia, and atherosclerosis of intracranial arteries. Patient was evaluated by Psychiatry Dr. Abreu on and it was determined that patient did not require Acute Psychiatry Admission but that patient may require intermediate project manager placement since he lives by himself and can not take care of self. Patient was referred for placement but he wants to go home. Patient is competent and still able to make decisions for himself. This was discussed with pt's daughter who agreed to take patient home since pt was refusing placement. Home Health Care ( [facility]) arranged prior to pt's discharge. 1. S/P Fall at home PT/OT consulted, pt walks with cane and stable gait CT Head without contrast 02/01/17 did not show any acute process. Home Health Care referral 2. Dehydration Resolved with IVF hydration BUN/Cr improved 3. Rhabdomyolysis CPK has normalized by 02/02/17 IVF hydrayion 4. Leukocytosis prob reactive Resolved 5. DM 2 uncontrolled RISS Metformin 850 mg PO 1x/day low dose Glucotrol 6. HTN uncontrolled better controlled now Diovan 320mg daily Norvasc at 10 mg PO 1x/day 7. HLD Lipitor 20 mg PO QHS 8. Bipolar Disorder manic most of the time however has episodes of Depression with crying spells Psych consulted . Patient does not require acute psych admission Continue Seroquel 100 mg PO QHS and Trazodone 50 mg PO QHS competent to make decisions 9. Parkinson's Disease/Dementia Rivastigmine 1 Patch TD 1x/day Sinemet 1 tab PO 4x/day Depakote 250 mg PO 2x/day psych consulted patient is competent to make decisions ambulates with a cane 10. Gout Allopurinol 100 mg PO 1x/day Colcrys 0.6 mg PO 1x/day 11. Prophylactic Measures Pepcid 20 mg PO QHS Lovenox 40 mg daily Discharge Exam - Head Exam Head Exam: ATRAUMATIC, NORMOCEPHALIC - Eye Exam Eye Exam: EOMI, Normal appearance Pupil Exam: NORMAL ACCOMODATION - ENT Exam ENT Exam: Mucous Membranes Moist, Normal External Ear Exam - Neck Exam Neck exam: Full Rom - Respiratory Exam Respiratory Exam: NORMAL BREATHING PATTERN. absent: Respiratory Distress - Cardiovascular Exam Cardiovascular Exam: REGULAR RHYTHM, +S1, +S2 - GI/Abdominal Exam GI & Abdominal Exam: Normal Bowel Sounds, Soft. absent: Tenderness - Extremities Exam Extremities exam: full ROM, normal capillary refill, pedal pulses present - Back Exam Back exam: FULL ROM, NORMAL INSPECTION. absent: CVA tenderness (L), CVA tenderness (R), paraspinal tenderness - Neurological Exam Neurological exam: Alert, CN II-XII Intact, Oriented x3, Reflexes Normal - Psychiatric Exam Psychiatric exam: Manic - Skin Skin Exam: Dry, Normal Color, Warm Discharge Plan - Discharge Medications Prescriptions: GlipiZIDE SR [Glucotrol XL] 5 mg PO DAILY #30 tab Metoprolol Succinate 50 mg PO DAILY #30 tab.er.24h amLODIPine [Norvasc] 10 mg PO DAILY@2100 #30 tab risperiDONE [RisperDAL Tab] 0.25 mg PO TID PRN #30 tab PRN Reason: Agitation Allopurinol [Zyloprim] 100 mg PO DAILY #30 tab - Follow Up Plan Condition: GOOD Disposition: HOME/ ROUTINE Instructions: Leukocytosis (DC), Leukocytosis (GEN) Additional Instructions: ff up with PMD and Psychiatry in 1 wk Home [facility] - 1st visit tomorrow Referrals: Ming Tenorio MD [Medical Doctor] -
[2017-02-13] MEDS ORDERED: Metoprolol Succinate 25 mg XL Tab PO STA (09:56)
[2017-02-13 12:14] VITALS: BP 168/83; PULSE 67
== END 2017-02-13 14:27 | disposition home health service (06) | DRG 558 ==
LOC: EDBD → H.ER 18:56 → H.ERHOLD 22:17 → H.MEDSURG1 01-31 00:02 → OBSVTOIN 02-01 22:17 → H.MEDSURG1 02-07 23:29
PROVIDERS: ADMIT Internal Medicine; ATTEND Internal Medicine
DX: M62.82 Rhabdomyolysis (principal); E11.65 Type 2 diabetes mellitus with hyperglycemia; G20 Parkinson's disease; D72.829 Elevated white blood cell count, unspecified; I10 Essential (primary) hypertension; S30.0XXA Contusion of lower back and pelvis, initial encounter; W17.89XA Other fall from one level to another, initial encounter; E86.0 Dehydration; E78.00 Pure hypercholesterolemia, unspecified; E78.5 Hyperlipidemia, unspecified; F31.9 Bipolar disorder, unspecified; F02.80 Dementia in other diseases classified elsewhere, unspecified severity, without behavioral disturbance, psychotic disturbance, mood disturbance, and anxiety; Z91.81 History of falling; M10.9 Gout, unspecified; N40.0 Benign prostatic hyperplasia without lower urinary tract symptoms; F41.9 Anxiety disorder, unspecified; Y92.009 Unspecified place in unspecified non-institutional (private) residence as the place of occurrence of the external cause

== ENCOUNTER 2017-02-17 15:14 | Inpatient (IN) | payer MEDICARE ==
[2017-02-17 15:14] VITALS: BMI 25.4
--- NOTE | 2017-02-17 16:00 | ED PDOC ---
HPI: General Adult Time Seen by Provider: 02/17/17 15:33 Chief Complaint (Nursing): Altered Mental Status Chief Complaint (Provider): Altered mental status History Per: Patient, Other (notes) History/Exam Limitations: clinical condition Onset/Duration Of Symptoms: Days (today) Additional Complaint(s): Pt. was found wandering the streets naked so brought to the ED. Pt. aggressive and states he will not talk to the staff until he gets cold water. Was given water prior and threw it to the ground as it was warm. Pt. denies any pain, but refusing to talk and give answers. States he wants to leave and go home. Per records pt. with dementia and altered mental status. Was admitted recently for symptoms and mild rhabdo. Past Medical History Vital Signs: Last Vital Signs Temp 97.6 F 02/17/17 18:55 Pulse 78 02/17/17 18:20 Resp 14 02/17/17 18:20 BP 135/84 02/17/17 18:20 Pulse Ox 99 02/17/17 19:00 - Medical History PMH: Anxiety, Benign Prostatic Hyperplasia, Bipolar Disorder, Dementia, Depression, Diabetes (type II), HTN, Hypercholesterolemia, Hyperlipidemia, Parkinson's Disease Denies: Hepatitis, HIV, Chronic Kidney Disease, Seizures, Sexually Transmitted Disease - Family History Family History: States: Unknown Family Hx - Immunization History Hx Tetanus Toxoid Vaccination: No Hx Influenza Vaccination: Yes Hx Pneumococcal Vaccination: No - Home Medications Home Medications: Ambulatory Orders Medication Instructions Recorded Famotidine [Pepcid] 20 mg PO HS #20 tab 06/03/14 Allopurinol 100 mg PO DAILY #14 tab 11/14/14 Carbidopa/Levodopa 25/100 CR 25 mg PO QID #28 tab 11/14/14 [Sinemet CR] Rivastigmine 9.5 mg/24 hr [Exelon 9.5 mg TD DAILY #14 patch 11/14/14 9.5 mg/24 hr Patch] Valsartan 160 mg PO DAILY #14 tab 11/14/14 metFORMIN [glucOPHAGE] 850 mg PO DAILY #0 tab 11/14/14 Aspirin [Aspirin EC] 81 mg PO DAILY #14 ect 12/06/14 Atorvastatin Calcium [Lipitor] 20 mg PO HS #14 tab 12/06/14 Colchicine 0.6 mg PO DAILY #14 tab 12/06/14 Tamsulosin [Flomax] 0.4 mg PO DAILY #14 cap 12/06/14 Valsartan [Diovan] 160 mg PO DAILY #14 tab 12/06/14 traZODone [Desyrel] 50 mg PO HS #14 tab 12/06/14 Divalproex [Depakote DR (*BID*)] 250 mg PO BID #60 ect 01/13/17 Ergocalciferol [Drisdol 50,000 1 cap PO QWK cap 01/13/17 Intl Units Cap] QUEtiapine [Seroquel] 100 mg PO HS #30 tab 01/13/17 Allopurinol [Zyloprim] 100 mg PO DAILY #30 tab 02/13/17 GlipiZIDE SR [Glucotrol XL] 5 mg PO DAILY #30 tab 02/13/17 Metoprolol Succinate 50 mg PO DAILY #30 tab.er.24h 02/13/17 amLODIPine [Norvasc] 10 mg PO DAILY@2100 #30 tab 02/13/17 risperiDONE [RisperDAL Tab] 0.25 mg PO TID PRN #30 tab 02/13/17 - Allergies Allergies/Adverse Reactions: Allergies Allergy/AdvReac Type Severity Reaction Status Date / Time No Known Allergies Allergy Unverified 06/03/14 12:27 Review of Systems Review Of Systems: ROS cannot be obtained secondary to pt's inabilty to answer questions. Physical Exam - Reviewed Nursing Documentation Reviewed: Yes Vital Signs Reviewed: Yes - Physical Exam Appears: Positive for: Uncomfortable Head Exam: Positive for: ATRAUMATIC, NORMAL INSPECTION, NORMOCEPHALIC Skin: Positive for: Normal Color, Warm, DRY Eye Exam: Positive for: EOMI, Normal appearance, PERRL ENT: Positive for: Normal ENT Inspection Neck: Positive for: Normal, Painless ROM, Supple Cardiovascular/Chest: Positive for: Regular Rate, Rhythm Respiratory: Positive for: CNT, Normal Breath Sounds Gastrointestinal/Abdominal: Positive for: Normal Exam, Bowel Sounds, Soft. Negative for: Tenderness Back: Positive for: Normal Inspection. Negative for: L CVA Tenderness, R CVA Tenderness Extremity: Positive for: Normal ROM. 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 Negative for: Motor/ Sensory Deficits, Facial Droop - Laboratory Results Result Diagrams: 02/17/17 17:30 02/17/17 17:30 Interpretation Of Abn Labs: bun 39 - ECG ECG: Positive for: Interpreted By Me, Viewed By Me ECG Rhythm: Positive for: Normal QRS, Normal ST Segment, Sinus Rhythm O2 Sat by Pulse Oximetry: 99 Pulse Ox Interpretation: Normal - CT Scan/US ct Other Rad Studies (CT/US): Read By Radiologist Other Rad Interpretation: no acute - Progress ED Course And Treament: 192: Spoke with Dr. Irene, hospitalist. Will speak with Dr. Serna who will admit tele obs. Known to his service. Pt. to get iv fluids. - Critical Care Total Time (In Min): 30 Documented Critical Care: Time excludes all time spent performint seperately billable procedures Disposition - Clinical Impression Clinical Impression: Dehydration, moderate, Agitation - Patient ED Disposition Is Patient to be Admitted: Yes - Disposition Disposition Time: 19:24 Condition: FAIR - Pt Status Changed To: Hospital Disposition Of: Observation - POA Present On Arrival: None
[2017-02-17 17:50] LABS: BASO # 0.1 K/uL (0.0-0.2); EOS % 0.1 % (0.0-4.0); HEMATOCRIT 41.4 % (35.0-51.0); LYMPH # 0.9 K/uL (1.0-4.3); LYMPH % 9.5 % (20.0-40.0); MEAN CELL VOLUME 90.6 fl (80.0-94.0); MEAN CORPUSCULAR HEMOGLOBIN 29.1 pg (27.0-31.0); MEAN CORPUSCULAR HGB CONC 32.1 g/dL (33.0-37.0); MEAN PLATELET VOLUME 8.9 fl (7.2-11.7); MONO # 0.8 K/uL (0.0-0.8); MONO % 8.5 % (0.0-10.0); NEUT # 7.4 K/uL (1.8-7.0); NEUT % 80.9 % (50.0-75.0); NRBC % 0.1 % (0.0-0.0); PLATELET COUNT 304 K/uL (130-400); WHITE BLOOD COUNT 9.2 K/uL (4.8-10.8)
[2017-02-17 17:59] LABS: ALCOHOL SERUM < 10 mg/dl (0-10); ALKALINE PHOSPHATASE 91 U/L (38-126); ALT/SGPT 10 U/L (21-72); AST/SGOT 46 U/L (17-59); BILIRUBIN,TOTAL 1.2 mg/dl (0.2-1.3); BLOOD UREA NITROGEN 39 mg/dl (9-20); CALCIUM 8.3 mg/dL (8.4-10.2); CARBON DIOXIDE 25 mmol/L (22-30); CHLORIDE 102 mmol/L (98-107); GFR AFRICAN-AMERICAN > 60; GLUCOSE,RANDOM 150 mg/dL (75-110); POTASSIUM 4.7 MMOL/L (3.6-5.0); SODIUM 144 mmol/l (132-148); TOTAL PROTEIN 7.7 G/DL (6.3-8.2)
[2017-02-17 18:02] LABS: ALB/GLOB RATIO 0.9 (1.0-2.1)
--- NOTE | 2017-02-17 18:26 | CT ---
PROCEDURE: CT HEAD WITHOUT CONTRAST. HISTORY: headache COMPARISON: None available. TECHNIQUE: Axial computed tomography images were obtained through the head/brain without intravenous contrast. Radiation dose: Total exam DLP = 865 mGy-cm. This CT exam was performed using one or more of the following dose reduction techniques: Automated exposure control, adjustment of the mA and/or kV according to patient size, and/or use of iterative reconstruction technique. FINDINGS: HEMORRHAGE: No intracranial hemorrhage. BRAIN: No mass effect or edema. 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 VENTRICLES: Unremarkable. No hydrocephalus. CALVARIUM: Unremarkable. PARANASAL SINUSES: Unremarkable as visualized. No significant inflammatory changes. MASTOID AIR CELLS: Unremarkable as visualized. No inflammatory changes. OTHER FINDINGS: None. IMPRESSION: No acute hemorrhage.
[2017-02-17] MEDS ORDERED: Sodium Chloride 0.9% 1,000 ML IV STA ×2 (19:00→20:20)
--- NOTE | 2017-02-17 20:59 | CP.PCM.HP ---
History of Present Illness - History of Present Illness History of Present Illness: CC: CONFUSION 81 year old male PMHx of Dementia, Bipolar Disorder, DM 2, HTN, Parkinson's Disease, Gout recently discharged 4 days ago after admission for an unwitnessed fall. Incidental findings of RUL 3 mm nodule. Was treated for mild rhabdomyolysis. CT L spine + degenerative changes. During this admission the patient was evaluated by Psychiatry Dr. Abreu and it was determined that patient did not require Acute Psychiatry Admission but that patient may require rat exterminator placement since he lives by himself and can not take care of self. Patient was referred for placement but he wants to go home. Patient was evaluated to be competent and was still able to make decisions for himself 2 weeks ago. This was discussed with pt's daughter who agreed to take patient home since pt was refusing placement. Home Health Care ([facility]) arranged prior to pt's discharge. Today patient was found roaming around naked and was brought in. Patient was confused, altered mental status and in the ER pt was mildly dehydrated. On interview, pt stated to crisis that he was not being treated well at home. Prior to the this authors evaluation and exam, patient was heavily sedated for agitation. Upon chart review, patient's support system has been having a difficult time as well. CT head neg. Patient to be hydrated, to be reevaluated by psych. Consider APS? Vitals are stable, no acute distress. ROS: patient currently sedated, unable to obtain at this time. PMH: Anxiety, BPH, Bipolar 1 Disorder, Dementia, Depression, HTN, HLD, Parkinson's Disease, Multiple falls, Unsteady gait, gout. PSH: Unknown Family Hx SH: lives alone, No cigarette smoking; No ETOH: No Illegal drugs. FH: No known familu History Allergies: NKDA Temp Pulse Resp BP Pulse Ox 97.6 F 93 H 16 124/71 100 02/17/17 18:55 02/17/17 21:27 02/17/17 21:27 02/17/17 20:05 02/17/17 21:27 EXAM HEENT: NCA, EOMI, PERRLA, NO lymphadenopathy, NO thyromegaly, Oral Mucosa and Nasal Turbinates are dry, Pharynx shows NO erythema/exudate Cardio: NS1 and NS2, NO M/R/G Respiratory: CTA B/L, NO R/R/W GI: BS x 4, Soft, ND, NO HSM, (+) Tenderness to palpation suprapubic area but NO rebound tenderness/NO guarding, (+) Right CVA Tenderness Ext: NO edema, Capillary Refill is 2 seconds, Pulses are strong and equal Neuro: CN II through XII are grossly intact 02/17/17 17:30 02/17/17 17:30 Allergies No Known Allergies Allergy (Unverified 06/03/14 12:27) Height & Weight Height 5 ft 6 in Weight 163 lb Start Date/Time Active Medications 02/17/17 20:59 risperiDONE [RisperDAL Tab] 0.25 mg PO TID PRN 02/17/17 21:00 Divalproex [Depakote DR(*BID*)] 250 mg PO BID amLODIPine [Norvasc] 10 mg PO DAILY@2100 02/17/17 21:15 Sodium Chloride 0.9% 1,000 ml IV 125 mls/hr 02/17/17 22:00 Atorvastatin [Lipitor] 20 mg PO HS Carbidopa/Levodopa 25/100 mg [Sinemet] 1 tab PO QID QUEtiapine [SEROquel] 100 mg PO HS traZODone [Desyrel] 50 mg PO HS 02/18/17 09:00 Allopurinol [Zyloprim] 100 mg PO DAILY Aspirin [Ecotrin] 81 mg PO DAILY Colchicine [Colocrys] 0.6 mg PO DAILY GlipiZIDE SR [Glucotrol XL] 5 mg PO DAILY Metoprolol Succinate [Toprol XL] 50 mg PO DAILY Rivastigmine 9.5 mg/24 hr [Exelon 9.5 mg/24 hr Patch] 1 patch TD DAILY Tamsulosin [Flomax] 0.4 mg PO DAILY Valsartan [Diovan] 160 mg PO DAILY metFORMIN [glucOPHAGE] 850 mg PO DAILY 81 year old male PMHx of Dementia, Bipolar Disorder, DM 2, HTN, Parkinson's Disease, Gout recently discharged 4 days ago after admission for an unwitnessed fall. Incidental findings of RUL 3 mm nodule. Was treated for mild rhabdomyolysis. CT L spine + degenerative changes. During this admission the patient was evaluated by Psychiatry Dr. Abreu and it was determined that patient did not require Acute Psychiatry Admission but that patient may require fdc placement since he lives by himself and can not take care of self. Patient was referred for placement but he wants to go home. Patient was evaluated to be competent and was still able to make decisions for himself 2 weeks ago. This was discussed with pt's daughter who agreed to take patient home since pt was refusing placement. Home Health Care ([facility]) arranged prior to pt's discharge. Today patient was found roaming around naked and was brought in. Patient was confused, altered mental status and in the ER pt was mildly dehydrated. On interview, pt stated to crisis that he was not being treated well at home. Prior to the this authors evaluation and exam, patient was heavily sedated for agitation. Upon chart review, patient's support system has been having a difficult time as well. CT head neg. Patient to be hydrated, to be reevaluated by psych. Consider APS? Vitals are stable, no acute distress. 1. AMS likely 2/2 dehydration IVF hydration BUN mildly elevated 2. DM 2 uncontrolled RISS Metformin 850 mg PO 1x/day low dose Glucotrol 3. HTN uncontrolled better controlled now Diovan 320mg daily Norvasc at 10 mg PO 1x/day 4. HLD Lipitor 20 mg PO QHS 5. Bipolar Disorder Psych consulted for reevaluation Continue Seroquel 100 mg PO QHS and Trazodone 50 mg PO QHS competent to make decisions 6. Parkinson's Disease/Dementia Rivastigmine 1 Patch TD 1x/day Sinemet 1 tab PO 4x/day Depakote 250 mg PO 2x/day psych consulted 7. Gout Allopurinol 100 mg PO 1x/day Colcrys 0.6 mg PO 1x/day 8. Prophylactic Measures Pepcid 20 mg PO QHS SCDS Present on Admission - Present on Admission Any Indicators Present on Admission: No Past Patient History - Infectious Disease Hx of Infectious Diseases: None - Tetanus Immunizations Tetanus Immunization: Unknown - Past Medical History & Family History Past Medical History?: Yes - Past Social History Smoking Status: Never Smoked - CARDIAC Hx Cardiac Disorders: No Hx Hypertension: Yes - PULMONARY Hx Tuberculosis: No - NEUROLOGICAL HX Cerebrovascular Accident: No Hx Seizures: No - HEENT Hx HEENT Problems: No - RENAL Hx Chronic Kidney Disease: No - ENDOCRINE/METABOLIC Hx Diabetes Mellitus Type 2: Yes - HEMATOLOGICAL/ONCOLOGICAL Hx Cancer: No Hx Human Immunodeficiency Virus (HIV): No - INTEGUMENTARY Hx Dermatological Problems: No - MUSCULOSKELETAL/RHEUMATOLOGICAL Hx Falls: Yes Hx Gout: Yes Hx Unsteady Gait: Yes - GASTROINTESTINAL Hx Gastrointestinal Disorders: No - GENITOURINARY/GYNECOLOGICAL Hx Sexually Transmitted Disorders: No - PSYCHIATRIC Hx Anxiety: Yes Hx Bipolar Disorder: Yes Hx Depression: Yes - SURGICAL HISTORY Hx Surgeries: No - ANESTHESIA Hx Anesthesia: No Meds Allergies/Adverse Reactions: Allergies Allergy/AdvReac Type Severity Reaction Status Date / Time No Known Allergies Allergy Unverified 06/03/14 12:27 Results - Vital Signs Recent Vital Signs: Last Vital Signs Temp 97.6 F 02/17/17 18:55 Pulse 112 H 02/17/17 20:05 Resp 16 02/17/17 20:05 BP 124/71 02/17/17 20:05 Pulse Ox 96 02/17/17 20:05 - Labs Result Diagrams: 02/17/17 17:30 02/17/17 17:30
[2017-02-17 21:17] LABS: NEUTROPHIL 82 % (42-75); TOTAL CELLS COUNTED 100
--- NOTE | 2017-02-17 21:18 | CARD ---
APPROVED REPORT EKG Measurement Heart [id number] <Conclusion> Normal sinus rhythm Left anterior fascicular block Moderate voltage criteria for LVH, may be normal variant Abnormal ECG
[2017-02-17] MEDS: Divalproex 250 mg DR(BID formulation) PO SCH (22:58)
[2017-02-17] MEDS: Sodium Chloride 0.9% 1,000 ML IV SCH (23:00)
[2017-02-17] MEDS: Insulin Lispro (humaLOG) 100 Units/ml Inj SC SCH (23:20)
[2017-02-18] MEDS: Sodium Chloride 0.9% 1,000 ML IV SCH ×2 (06:36→13:14)
[2017-02-18 07:20] LABS: BLOOD UREA NITROGEN 26 mg/dl (9-20); CALCIUM 7.6 mg/dL (8.4-10.2); CARBON DIOXIDE 26 mmol/L (22-30); CHLORIDE 108 mmol/L (98-107); GFR AFRICAN-AMERICAN > 60; GLUCOSE,RANDOM 97 mg/dL (75-110); POTASSIUM 3.4 MMOL/L (3.6-5.0); SODIUM 143 mmol/l (132-148)
[2017-02-18] MEDS: Insulin Lispro (humaLOG) 100 Units/ml Inj SC SCH ×4 (08:08→22:09)
[2017-02-18] MEDS ORDERED: Potassium Chloride 20 mEq ER Tab PO ONE (08:26)
[2017-02-18] MEDS: Divalproex 250 mg DR(BID formulation) PO SCH ×2 (09:59→17:47)
[2017-02-18] MEDS: Metoprolol Succinate 50 mg XL Tab PO SCH (09:59)
[2017-02-18] MEDS: GlipiZIDE 5 mg SR Tab PO SCH (10:00)
[2017-02-18] MEDS ORDERED: Lactobacillus Acidophilus 500 MU Cap PO SCH (10:30)
[2017-02-18] MEDS ORDERED: Silver Sulfadiazine 1% Cream (20 gm) TOP SCH (10:30)
--- NOTE | 2017-02-18 12:33 | CP.PCM.CON ---
History of Present Illness - History of Present Illness History of Present Illness: Psychiatry consult called for evaluation of mental illness CC: "I was walking around naked." HPI: 81 yo male w/ h/o bipolar disorder, gout, htn, NIDDM, dementia, parkinson' s disease, admitted to the hospital s/p being found wandering the streets. Patient is well known to creative services writer from multiple psychiatric admissions. He is currently at his psychiatric baseline. He denies acute psychiatric symptoms but does report continued conflict with his family. He denies that his family physically abuses him but states that he is not able to care for himself at home and his family is not helping him. ROS: Denies psychosis, no hallucinations, no paranoia, no feelings of guilt, no obsessions, no compulsions, no donato, no pressured speech, no flight of ideas, no grandiose thoughts, no current suicidal ideation/plan/intent, no delusions PPHx: Multiple past admissions for h/o bipolar disorder and periods of homicidal ideation. Hx of tx with Risperdal but this was switched to Seroquel due to parkinson's disease. H/o tx with Depakote. PMHx: Bipolar disorder, gout, HTN, dementia, Parkinson's disease, NIDDM All: NKDA SHx: Lives with son or daughter at various times, now living alone, from [place], denies legal problems, no drugs/etoh/cigarettes, no h/o abuse MSE: A + O x 3, good eye contact, psychomotor retarded due to age/ambulates with cane, no acute distress, affect- broad/full range, mood "okay", thought process-coherent, thought content-no delusions, no AH/VH, no SI/HI, insight/ judgment overall fair, but limited at times due to dementia Impression: 81 yo male w/ h/o bipolar disorder, gout, htn, NIDDM, dementia, parkinson's disease, admitted to the hospital s/p found wandering naked due to delirium vs dementia. Patient does NOT require acute inpatient psychiatric admission at this time as he is at his baseline psychiatrically. He would benefit from buttermaker continuous churn placement or direct care from the family as he is not safe or able to take care of himself at home. Recommendations: -Continue home medications -Patient does NOT need acute inpatient admission -Would recommend that APS be called as the patient is left alone at home and is clearly not able to care for himself at this time due to his chronic dementia. Patient needs buttermaker continuous churn placement or other education professor care. If family has medical power of research attorney they can consent for group home placement. -Re-consult with further questions, Dr. Abreu [phone] Past Patient History - Infectious Disease Hx of Infectious Diseases: None - Tetanus Immunizations Tetanus Immunization: Unknown - Past Medical History & Family History Past Medical History?: Yes - Past Social History Smoking Status: Never Smoked - CARDIAC Hx Cardiac Disorders: Yes Hx Hypercholesterolemia: Yes Hx Hypertension: Yes - PULMONARY Hx Respiratory Disorders: No Hx Tuberculosis: No - NEUROLOGICAL Hx Neurological Disorder: Yes HX Cerebrovascular Accident: No Hx Dementia: Yes Hx Seizures: No - HEENT Hx HEENT Problems: No - RENAL Hx Chronic Kidney Disease: No - ENDOCRINE/METABOLIC Hx Endocrine Disorders: Yes Hx Diabetes Mellitus Type 2: Yes - HEMATOLOGICAL/ONCOLOGICAL Hx Blood Disorders: No Hx Cancer: No Hx Human Immunodeficiency Virus (HIV): No - INTEGUMENTARY Hx Dermatological Problems: No - MUSCULOSKELETAL/RHEUMATOLOGICAL Hx Musculoskeletal Disorders: Yes Hx Falls: Yes - GASTROINTESTINAL Hx Gastrointestinal Disorders: No - GENITOURINARY/GYNECOLOGICAL Hx Genitourinary Disorders: No Hx Sexually Transmitted Disorders: No - PSYCHIATRIC Hx Psychophysiologic Disorder: Yes Hx Anxiety: Yes Hx Bipolar Disorder: Yes Hx Depression: Yes - SURGICAL HISTORY Hx Surgeries: No - ANESTHESIA Hx Anesthesia: No Hx Anesthesia Reactions: No Meds Home Medications: Home Medication List Medication Instructions Recorded Confirmed Type Aspirin [Ecotrin] 81 mg PO DAILY tabec 02/18/17 Rx QUEtiapine [Seroquel] 100 mg PO HS tab 02/18/17 Rx Allergies/Adverse Reactions: Allergies Allergy/AdvReac Type Severity Reaction Status Date / Time No Known Allergies Allergy Verified 02/18/17 01:37 - Medications Medications: Current Medications Allopurinol (Zyloprim) 100 mg PO DAILY [facility] Last Admin: 02/18/17 09:59 Dose: 100 mg Amlodipine Besylate (Norvasc) 10 mg PO DAILY@2100 [facility] Last Admin: 02/17/17 23:17 Dose: 10 mg Aspirin (Ecotrin) 81 mg PO DAILY [facility] Last Admin: 02/18/17 09:58 Dose: 81 mg Atorvastatin Calcium (Lipitor) 20 mg PO HS [facility] Last Admin: 02/17/17 22:59 Dose: 20 mg Carbidopa/Levodopa (Sinemet) 1 tab PO QID [facility] Last Admin: 02/18/17 09:57 Dose: 1 tab Colchicine (Colocrys) 0.6 mg PO DAILY [facility] Last Admin: 02/18/17 09:57 Dose: 0.6 mg Divalproex Sodium (Depakote Dr(*Bid*)) 250 mg PO BID [facility] Last Admin: 02/18/17 09:59 Dose: 250 mg Glipizide (Glucotrol Xl) 5 mg PO DAILY [facility] Last Admin: 02/18/17 10:00 Dose: 5 mg Sodium Chloride (Sodium Chloride 0.9%) 1,000 mls @ 125 mls/hr IV .Q8H [facility] Last Admin: 02/18/17 06:36 Dose: Not Given Insulin Human Lispro (Humalog) 0 units SC ACHS [facility] PRN Reason: Protocol Last Admin: 02/18/17 08:08 Dose: Not Given Metformin HCl (Glucophage) 850 mg PO DAILY [facility] Last Admin: 02/18/17 09:59 Dose: 850 mg Metoprolol Succinate (Toprol Xl) 50 mg PO DAILY [facility] Last Admin: 02/18/17 09:59 Dose: 50 mg Quetiapine Fumarate (Seroquel) 100 mg PO HS [facility] Last Admin: 02/17/17 22:59 Dose: 100 mg Risperidone (Risperdal Tab) 0.25 mg PO TID PRN PRN Reason: Agitation Rivastigmine (Exelon 9.5 Mg/24 Hr Patch) 1 patch TD DAILY [facility] Last Admin: 02/18/17 10:00 Dose: 1 patch Tamsulosin HCl (Flomax) 0.4 mg PO DAILY [facility] Last Admin: 02/18/17 09:58 Dose: 0.4 mg Trazodone HCl (Desyrel) 50 mg PO HS [facility] Last Admin: 02/17/17 22:59 Dose: 50 mg Valsartan (Diovan) 160 mg PO DAILY [facility] Last Admin: 02/18/17 10:00 Dose: 160 mg Results - Vital Signs Recent Vital Signs: Last Vital Signs Temp 97.3 F L 02/18/17 08:36 Pulse 73 02/18/17 08:36 Resp 20 02/18/17 08:36 BP 149/78 02/18/17 09:59 Pulse Ox 95 02/18/17 08:36 - Labs Result Diagrams: 02/17/17 17:30 02/18/17 06:00 Labs: Laboratory Results - last 24 hr 02/17/17 02/18/17 02/18/17 22:49 02:25 06:00 Sodium 143 Potassium 3.4 L Chloride 108 H Carbon Dioxide 26 Anion Gap 12 BUN 26 H Creatinine 0.6 L Est GFR ( Amer) > 60 Est GFR (Non-Af Amer) > 60 POC Glucose (mg/dL) 129 H 134 H Random Glucose 97 Calcium 7.6 L 02/18/17 02/18/17 06:03 11:18 Sodium Potassium Chloride Carbon Dioxide Anion Gap BUN Creatinine Est GFR ( Amer) Est GFR (Non-Af Amer) POC Glucose (mg/dL) 76 182 H Random Glucose Calcium
--- NOTE | 2017-02-18 14:50 | CP.PCM.DIS ---
Provider - Provider Date of Admission: 02/17/17 19:25 Attending physician: Anna Serna DO [place] [facility] - Lab Results Lab Results: Most Recent Lab Values WBC 9.2 K/uL (4.8-10.8) 02/17/17 17:30 RBC 4.57 Mil/uL (4.40-5.90) 02/17/17 17:30 Hgb 13.3 g/dL (12.0-18.0) 02/17/17 17: Hct 41.4 % (35.0-51.0) 02/17/17 17:30 MCV 90.6 fl (80.0-94.0) 02/17/17: MCH 29.1 pg (27.0-31.0) 02/17/17: MCHC 32.1 g/dL (33.0-37.0) L 02/17/17: RDW 15.0 % (11.5-14.5) H 02/17/17:30 Plt Count 304 K/uL (130-400) 02/17/17: MPV 8.9 fl (7.2-11.7) 02/17/17:30 Neut % (Auto) 80.9 % (50.0-75.0) H 02/17/17: Lymph % (Auto) 9.5 % (20.0-40.0) L 02/17/17:30 [place] % (Auto) 8.5 % (0.0-10.0) 02/17/17: Eos % (Auto) 0.1 % (0.0-4.0) 02/17/17:30 Baso % (Auto) 1.0 % (0.0-2.0) 02/17/17:30 Neut # 7.4 K/uL (1.8-7.0) H 02/17/17:30 Lymph # 0.9 K/uL (1.0-4.3) L 02/17/17 17:30 [place] # 0.8 K/uL (0.0-0.8) 02/17/17 17:30 Eos # 0.0 K/uL (0.0-0.7) 02/17/17 17: Baso # 0.1 K/uL (0.0-0.2) 02/17/17 17:30 Neutrophils % (Manual) 82 % (42-75) H 02/17/17 17:30 Lymphocytes % (Manual) 10 % (20-50) L 02/17/17 17:30 Monocytes % (Manual) 8 % (0-10) 02/17/17 17:30 Platelet Estimate Normal (NORMAL) 02/17/17 17:30 Anisocytosis (manual) Slight 02/17/17 17:30 Sodium 143 mmol/l (132-148) 02/18/17 06:00 Potassium 3.4 MMOL/L (3.6-5.0) L 02/18/17 06:00 Chloride 108 mmol/L (98-107) H 02/18/17 06:00 Carbon Dioxide 26 mmol/L (22-30) 02/18/17 06:00 Anion Gap 12 (10-20) 02/18/17 06:00 BUN 26 mg/dl (9-20) H 02/18/17 06:00 Creatinine 0.6 mg/dL (0.8-1.5) L 02/18/17 06:00 Est GFR ( Amer) > 60 02/18/17 06:00 Est GFR (Non-Af Amer) > 60 02/18/17 06:00 POC Glucose (mg/dL) 182 mg/dL (65-110) H 02/18/17 11:18 Random Glucose 97 mg/dL (75-110) 02/18/17 06:00 Calcium 7.6 mg/dL (8.4-10.2) L 02/18/17 06:00 Total Bilirubin 1.2 mg/dl (0.2-1.3) 02/17/17 17:30 AST 46 U/L (17-59) 02/17/17 17:30 ALT 10 U/L (21-72) L D 02/17/17 17:30 Alkaline Phosphatase 91 U/L (38-126) 02/17/17 17:30 Total Creatine Kinase 185 U/L (55-170) H 02/17/17 17:30 Troponin I 0.0230 ng/mL (0.00-0.120) 02/17/17 17:30 Total Protein 7.7 G/DL (6.3-8.2) 02/17/17 17:30 Albumin 3.6 g/dL (3.5-5.0) 02/17/17 17:30 Globulin 4.2 gm/dL (2.2-3.9) H 02/17/17 17:30 Albumin/Globulin Ratio 0.9 (1.0-2.1) L 02/17/17 17:30 Alcohol, Quantitative < 10 mg/dl (0-10) 02/17/17 17:30 Discharge Exam - Head Exam Head Exam: ATRAUMATIC, NORMAL INSPECTION, NORMOCEPHALIC
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
[2017-02-19] MEDS: Insulin Lispro (humaLOG) 100 Units/ml Inj SC SCH ×4 (07:30→21:08)
[2017-02-19] MEDS: Divalproex 250 mg DR(BID formulation) PO SCH ×2 (09:07→17:08)
[2017-02-19] MEDS: Metoprolol Succinate 50 mg XL Tab PO SCH (09:07)
[2017-02-19] MEDS: GlipiZIDE 5 mg SR Tab PO SCH (09:08)
[2017-02-19] MEDS: Enoxaparin 40 mg Syringe SC SCH (09:10)
[2017-02-19 10:03] LABS: ALKALINE PHOSPHATASE 93 U/L (38-126); ALT/SGPT 35 U/L (21-72); AST/SGOT 28 U/L (17-59); BILIRUBIN,TOTAL 0.4 mg/dl (0.2-1.3); BLOOD UREA NITROGEN 18 mg/dl (9-20); CALCIUM 8.8 mg/dL (8.4-10.2); CARBON DIOXIDE 30 mmol/L (22-30); CHLORIDE 102 mmol/L (98-107); GFR AFRICAN-AMERICAN > 60; GLUCOSE,RANDOM 101 mg/dL (75-110); POTASSIUM 4.1 MMOL/L (3.6-5.0); SODIUM 146 mmol/l (132-148); TOTAL PROTEIN 6.8 G/DL (6.3-8.2)
[2017-02-19 10:23] LABS: ALB/GLOB RATIO 0.8 (1.0-2.1)
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
[2017-02-19] MEDS: Sodium Chloride 0.9% 1,000 ML IV SCH (13:46)
[2017-02-19] MEDS: Magnesium Hydroxide Susp 30 ml UD PO PRN (19:24)
[2017-02-20] MEDS: Insulin Lispro (humaLOG) 100 Units/ml Inj SC SCH ×4 (06:48→22:23)
[2017-02-20] MEDS: Sodium Chloride 0.9% 1,000 ML IV SCH ×2 (06:49→06:50)
[2017-02-20] MEDS: Enoxaparin 40 mg Syringe SC SCH (08:55)
[2017-02-20] MEDS: Metoprolol Succinate 50 mg XL Tab PO SCH (08:56)
[2017-02-20] MEDS: GlipiZIDE 5 mg SR Tab PO SCH (08:57)
[2017-02-20] MEDS: Divalproex 250 mg DR(BID formulation) PO SCH ×2 (08:57→17:11)
--- NOTE | 2017-02-20 11:24 | CP.PCM.PN ---
Subjective - Date & Time of Evaluation Date of Evaluation: 02/20/17 Time of Evaluation: 11:15 - Subjective Subjective: Hospitalist Progress Note (Patient was seen and examined at 11:15 AM 02/20/17 668 -[id number]) 81 year old male (PMHx of Dementia, Bipolar Disorder, DM 2, HTN, Parkinson's Disease, Gout) was admitted on 01/30/17 for further evaluation after he was found on the floor at his residence (where he lives by himself) by his ex- after he had fallen off his recliner. Patient stated that there was NO loss of consciousness and he has been experiencing nonradiating low back pain. CT Lumbar Spine 01/30/17 showed degenerative changes. Chest X Ray 01/30/17 showed Right Upper Lung zone 3mm nodule. He had elevated Lactic Acid upon admission but this normalized by 01/31/17. He had elevated CPK 419 but this decreased to 343 with administration of IVF and normalized by 02/02/17. He had Leukocytosis but this also has normalized. CT Head 02/01/17 showed NO intracranial hemorrhage , nonspecific white matter changes, stable left mastoid opacifications, moderate atrophy, right parietal encephalomalacia, and atherosclerosis of intracranial arteries. Patient was evaluated by Psychiatry Dr. Abreu on and it was determined that patient did not require Acute Psychiatry Admission but that patient may require terminal gauger placement since he lives by himself and can not take care of self. Patient was referred for placement but he wanted to go home. Patient was deemed to be able to make decisions concerning his placement. This was discussed with pt's daughter who agreed to take patient home as patient was refusing placement. Home Health Care ([facility]) arranged prior to pt's discharge on 02/13/17. Patient was readmitted to [facility] on 02/26/17 after he was found to be roaming the streets naked. He was found to be dehydrated and IVF were given. Psychiatry was reconsulted and patient did not require in-patient Psychiatry Admission and was deemed to be able to make the decision of whether he wants to be admitted to a Shelter for terminal gauger care and at the time of my exam on 02/19/17, patient stated that he just wants to go home. I spoke with my colleauge Dr. Harden on the night of 02/18/17, and she informed me that the local police were at the patient' s home and that as per Social Workers Connie and Sameera Adult Protective Services will be contacted when patient is ready for discharge. I spoke with Psychiatrist Dr. Abreu and patient does not require in-patient psychiatric admission and he is able to make decision concerning where he wants to go. I spoke with patient's Daughter Coleen [phone] via phone 02/19/17 and I expressed to her that I did not feel that the patient could be safely discharged back to his home. Coleen explained to me that she spoke with Adult Protective Services Miguelina Sommer [phone], who is the agent assigned to the patient, and Ms. Gonzalez will be seeing the patient on Wednesday02/22/17 at [facility]. I also called Ms. Sommer and left a voicemail 02/19/17 asking her to call me on my cell. Coleen is also trying to contact her brother to see if a Medical Power of Science Editor Paperwork was ever completed for patient by them and if so will contact [address] [place] [address] Med/Surg and she was provided with this unit's phone number. As Adult Protective Services can not see patient until Wednesday02/22/17, I believe that the patient is unsafe for discharge, at this time, to his house considering his history (as explained above). ROS In much better spirits today vs yesterday when he became upset that he was not being discharged and that he needed evaluation by APS NO chest pain, NO palpitations, NO SOB/Cough/Wheezing, NO dysphagia/odynophagia , NO abdominal pain, NO n/v/d/c, NO burning/pain with urination, NO lightheadedness/dizziness, NO new changes in vision/eye pain, NO new changes in hearing/ear pain, NO paresthesias, NO edema General: AAOx3, NAD HEENT: NCA, PERRLA, EOMI, NO cervical lymphadenopathy, NO thyromegaly, NO Pharyngeal erythema/exudate Cardio: NS1 and NS2, NO M/R/G Respiratory: CTA B/L, NO R/R/W GI: BSx4, Soft, NT, ND, NO HSM, NO guarding/rebound tenderness Ext: NO edema, Pulses are strong and equal, Capillary refill is 2 seconds Neuro: CN II through XII are grossly intact Assessment and Plan: 1). Altered Mental Status Secondary to Dehydration Resolved BUN/Cr has now normalized 2). DM 2 Lispro ISS Metformin 850 mg PO 1x/day Glucotrol 5 mg PO 1x/day 3). HTN Valsartan 160 mg PO 1x/day Norvasc 10 mg PO 1x/day Toprol XL 50 mg PO 1x/day 4). HLD Lipitor 20 mg PO QHS 5). Bipolar Disorder Seroquel 100 mg PO QHS Trazodone 50 mg PO QHS 6). Parkinson's Disease/Dementia Rivastigmine 1 Patch TD 1x/day Sinemet 1 tab PO 4x/day Depakote 250 mg PO 2x/day 7). Gout Allopurinol 100 mg PO 1x/day Colcrys 0.6 mg PO 1x/day 8). BPH Flomax 0.4 mg PO 1x/day 9). Prophylactic Measures ASA 81 mg PO 1x/day Pepcid 20 mg PO QHS Lovenox 40 mg SQ 1x/day Called Jordan Horne and left her a voicemail that patient was asking for her. I have not heard back from APS Miguelina Sommer. Objective - Vital Signs/Intake and Output Vital Signs (last 24 hours): Temp Pulse Resp BP Pulse Ox 97.9 F 71 20 132/76 97 02/20/17 08:17 02/20/17 08:56 02/20/17 08:17 02/20/17 08:56 02/20/17 08:17 - Medications Medications: Current Medications Acetaminophen (Tylenol 325mg Tab) 650 mg PO Q6 PRN PRN Reason: Pain, moderate (4-7) Last Admin: 02/20/17 09:45 Dose: 650 mg Allopurinol (Zyloprim) 100 mg PO DAILY [facility] Last Admin: 02/20/17 08:57 Dose: 100 mg Amlodipine Besylate (Norvasc) 10 mg PO DAILY@2100 [facility] Last Admin: 02/19/17 21:04 Dose: 10 mg Aspirin (Ecotrin) 81 mg PO DAILY [facility] Last Admin: 02/20/17 08:58 Dose: 81 mg Atorvastatin Calcium (Lipitor) 20 mg PO HS [facility] Last Admin: 02/19/17 21:04 Dose: 20 mg Carbidopa/Levodopa (Sinemet) 1 tab PO QID [facility] Last Admin: 02/20/17 08:55 Dose: 1 tab Colchicine (Colocrys) 0.6 mg PO DAILY [facility] Last Admin: 02/20/17 08:55 Dose: 0.6 mg Divalproex Sodium (Depakote Dr(*Bid*)) 250 mg PO BID [facility] Last Admin: 02/20/17 08:57 Dose: 250 mg Enoxaparin Sodium (Lovenox) 40 mg SC DAILY [facility] PRN Reason: Protocol Last Admin: 02/20/17 08:55 Dose: 40 mg Glipizide (Glucotrol Xl) 5 mg PO DAILY [facility] Last Admin: 02/20/17 08:57 Dose: 5 mg Sodium Chloride (Sodium Chloride 0.9%) 1,000 mls @ 125 mls/hr IV .Q8H [facility] Last Admin: 02/20/17 06:50 Dose: Not Given Insulin Human Lispro (Humalog) 0 units SC ACHS [facility] PRN Reason: Protocol Last Admin: 02/20/17 06:48 Dose: Not Given Magnesium Hydroxide (Milk Of Magnesia) 5 ml PO QID PRN PRN Reason: Indigestion Last Admin: 02/19/17 19:24 Dose: 5 ml Metformin HCl (Glucophage) 850 mg PO DAILY [facility] Last Admin: 02/20/17 08:58 Dose: 850 mg Metoprolol Succinate (Toprol Xl) 50 mg PO DAILY [facility] Last Admin: 02/20/17 08:56 Dose: 50 mg Quetiapine Fumarate (Seroquel) 100 mg PO HS [facility] Last Admin: 02/19/17 21:04 Dose: 100 mg Rivastigmine (Exelon 9.5 Mg/24 Hr Patch) 1 patch TD DAILY [facility] Last Admin: 02/20/17 08:58 Dose: 1 patch Tamsulosin HCl (Flomax) 0.4 mg PO DAILY [facility] Last Admin: 02/20/17 08:58 Dose: 0.4 mg Trazodone HCl (Desyrel) 50 mg PO HS [facility] Last Admin: 02/19/17 21:08 Dose: 50 mg Valsartan (Diovan) 160 mg PO DAILY [facility] Last Admin: 02/20/17 08:56 Dose: 160 mg
[2017-02-20] MEDS: Magnesium Hydroxide Susp 30 ml UD PO PRN (18:51)
[2017-02-21] MEDS: Sodium Chloride 0.9% 1,000 ML IV SCH ×4 (00:20→21:39)
[2017-02-21] MEDS: Insulin Lispro (humaLOG) 100 Units/ml Inj SC SCH ×4 (09:09→21:50)
--- NOTE | 2017-02-21 10:40 | CP.PCM.PN ---
Subjective - Date & Time of Evaluation Date of Evaluation: 02/21/17 Time of Evaluation: 10:30 - Subjective Subjective: Hospitalist Progress Note (Patient was seen and examined at 10:30 AM 02/21/17 668 -1) 81 year old male (PMHx of Dementia, Bipolar Disorder, DM 2, HTN, Parkinson's Disease, Gout) was admitted on 01/30/17 for further evaluation after he was found on the floor at his residence (where he lives by himself) by his ex- after he had fallen off his recliner. Patient stated that there was NO loss of consciousness and he has been experiencing nonradiating low back pain. CT Lumbar Spine 01/30/17 showed degenerative changes. Chest X Ray 01/30/17 showed Right Upper Lung zone 3mm nodule. He had elevated Lactic Acid upon admission but this normalized by 01/31/17. He had elevated CPK 419 but this decreased to 343 with administration of IVF and normalized by 02/02/17. He had Leukocytosis but this also has normalized. CT Head 02/01/17 showed NO intracranial hemorrhage , nonspecific white matter changes, stable left mastoid opacifications, moderate atrophy, right parietal encephalomalacia, and atherosclerosis of intracranial arteries. Patient was evaluated by Psychiatry Dr. Abreu on and it was determined that patient did not require Acute Psychiatry Admission but that patient may require intermediate frame tender placement since he lives by himself and can not take care of self. Patient was referred for placement but he wanted to go home. Patient was deemed to be able to make decisions concerning his placement. This was discussed with pt's daughter who agreed to take patient home as patient was refusing placement. Home Health Care ([facility]) arranged prior to pt's discharge on 02/13/17. Patient was readmitted to [facility] on 02/26/17 after he was found to be roaming the streets naked. He was found to be dehydrated and IVF were given. Psychiatry was reconsulted and patient did not require in-patient Psychiatry Admission and was deemed to be able to make the decision of whether he wants to be admitted to a [facility] for intermediate frame tender care and at the time of my exam on 02/19/17, patient stated that he just wants to go home. I spoke with my colleauge Dr. Harden on the night of 02/18/17, and she informed me that the local police were at the patient' s home and that as per Social Workers Connie and Sameera Adult Protective Services will be contacted when patient is ready for discharge. I spoke with Psychiatrist Dr. Abreu and patient does not require in-patient psychiatric admission and he is able to make decision concerning where he wants to go. I spoke with patient's Daughter Coleen [phone] via phone 02/19/17 and I expressed to her that I did not feel that the patient could be safely discharged back to his home. Coleen explained to me that she spoke with Adult Protective Services Miguelina Sommer [phone], who is the agent assigned to the patient, and Ms. Gonzalez will be seeing the patient on Wednesday02/22/17 at [facility]. I also called Ms. Sommer and left a voicemail 02/19/17 asking her to call me on my cell. Coleen is also trying to contact her brother to see if a Medical Power of Yard Conductor Paperwork was ever completed for patient by them and if so will contact [address] [place] [address] Med/Surg and she was provided with this unit's phone number. As Adult Protective Services can not see patient until Wednesday02/22/17, I believe that the patient is unsafe for discharge, at this time, to his house considering his history (as explained above). ROS: NO chest pain, NO palpitations, NO SOB/Cough/Wheezing, NO dysphagia/odynophagia , NO abdominal pain, NO n/v/d/c, NO burning/pain with urination, NO lightheadedness/dizziness, NO new changes in vision/eye pain, NO new changes in hearing/ear pain, NO paresthesias, NO edema General: AAOx3, NAD HEENT: NCA, PERRLA, EOMI, NO cervical lymphadenopathy, NO thyromegaly, NO Pharyngeal erythema/exudate Cardio: NS1 and NS2, NO M/R/G Respiratory: CTA B/L, NO R/R/W GI: BSx4, Soft, NT, ND, NO HSM, NO guarding/rebound tenderness Ext: NO edema, Pulses are strong and equal, Capillary refill is 2 seconds Neuro: CN II through XII are grossly intact Assessment and Plan: 1). Altered Mental Status Secondary to Dehydration Resolved BUN/Cr has now normalized 2). DM 2 Lispro ISS Metformin 850 mg PO 1x/day Glucotrol 5 mg PO 1x/day 3). HTN Valsartan 160 mg PO 1x/day Norvasc 10 mg PO 1x/day Toprol XL 50 mg PO 1x/day 4). HLD Lipitor 20 mg PO QHS 5). Bipolar Disorder Seroquel 100 mg PO QHS Trazodone 50 mg PO QHS 6). Parkinson's Disease/Dementia Rivastigmine 1 Patch TD 1x/day Sinemet 1 tab PO 4x/day Depakote 250 mg PO 2x/day 7). Gout Allopurinol 100 mg PO 1x/day Colcrys 0.6 mg PO 1x/day 8). BPH Flomax 0.4 mg PO 1x/day 9). Prophylactic Measures ASA 81 mg PO 1x/day Pepcid 20 mg PO QHS Lovenox 40 mg SQ 1x/day Awaiting Adult Protective Services evaluation 02/22/17. Objective - Vital Signs/Intake and Output Vital Signs (last 24 hours): Temp Pulse Resp BP Pulse Ox 98.5 F 80 20 140/79 96 02/21/17 07:58 02/21/17 07:58 02/21/17 07:58 02/21/17 07:58 02/21/17 07:58 - Medications Medications: Current Medications Acetaminophen (Tylenol 325mg Tab) 650 mg PO Q6 PRN PRN Reason: Pain, moderate (4-7) Last Admin: 02/20/17 09:45 Dose: 650 mg Allopurinol (Zyloprim) 100 mg PO DAILY [facility] Last Admin: 02/20/17 08:57 Dose: 100 mg Amlodipine Besylate (Norvasc) 10 mg PO DAILY@2100 [facility] Last Admin: 02/20/17 22:30 Dose: 10 mg Aspirin (Ecotrin) 81 mg PO DAILY [facility] Last Admin: 02/20/17 08:58 Dose: 81 mg Atorvastatin Calcium (Lipitor) 20 mg PO HS [facility] Last Admin: 02/20/17 22:28 Dose: 20 mg Carbidopa/Levodopa (Sinemet) 1 tab PO QID [facility] Last Admin: 02/20/17 22:31 Dose: 1 tab Colchicine (Colocrys) 0.6 mg PO DAILY [facility] Last Admin: 04/15/17 08:55 Dose: 0.6 mg Divalproex Sodium (Depakote Dr(*Bid*)) 250 mg PO BID [facility] Last Admin: 02/20/17 17:11 Dose: 250 mg Enoxaparin Sodium (Lovenox) 40 mg SC DAILY [facility] PRN Reason: Protocol Last Admin: 02/20/17 08:55 Dose: 40 mg Glipizide (Glucotrol Xl) 5 mg PO DAILY [facility] Last Admin: 02/20/17 08:57 Dose: 5 mg Sodium Chloride (Sodium Chloride 0.9%) 1,000 mls @ 125 mls/hr IV .Q8H [facility] Last Admin: 02/21/17 06:57 Dose: Not Given Insulin Human Lispro (Humalog) 0 units SC ACHS [facility] PRN Reason: Protocol Last Admin: 02/21/17 09:09 Dose: Not Given Magnesium Hydroxide (Milk Of Magnesia) 5 ml PO QID PRN PRN Reason: Indigestion Last Admin: 02/20/17 18:51 Dose: 5 ml Metformin HCl (Glucophage) 850 mg PO DAILY [facility] Last Admin: 02/20/17 08:58 Dose: 850 mg Metoprolol Succinate (Toprol Xl) 50 mg PO DAILY [facility] Last Admin: 02/20/17 08:56 Dose: 50 mg Quetiapine Fumarate (Seroquel) 100 mg PO HS [facility] Last Admin: 02/20/17 22:31 Dose: 100 mg Rivastigmine (Exelon 9.5 Mg/24 Hr Patch) 1 patch TD DAILY [facility] Last Admin: 02/20/17 08:58 Dose: 1 patch Tamsulosin HCl (Flomax) 0.4 mg PO DAILY [facility] Last Admin: 02/20/17 08:58 Dose: 0.4 mg Trazodone HCl (Desyrel) 50 mg PO HS [facility] Last Admin: 02/20/17 22:23 Dose: 50 mg Valsartan (Diovan) 160 mg PO DAILY [facility] Last Admin: 02/20/17 08:56 Dose: 160 mg
[2017-02-21] MEDS: GlipiZIDE 5 mg SR Tab PO SCH (10:43)
[2017-02-21] MEDS: Enoxaparin 40 mg Syringe SC SCH (10:44)
[2017-02-21] MEDS: Divalproex 250 mg DR(BID formulation) PO SCH ×2 (10:45→16:52)
[2017-02-21] MEDS: Metoprolol Succinate 50 mg XL Tab PO SCH (10:45)
[2017-02-22] MEDS: Sodium Chloride 0.9% 1,000 ML IV SCH ×2 (06:33→23:22)
[2017-02-22] MEDS: Insulin Lispro (humaLOG) 100 Units/ml Inj SC SCH ×4 (08:01→22:08)
[2017-02-22] MEDS: GlipiZIDE 5 mg SR Tab PO SCH (08:54)
[2017-02-22] MEDS: Divalproex 250 mg DR(BID formulation) PO SCH ×2 (08:54→16:59)
[2017-02-22] MEDS: Metoprolol Succinate 50 mg XL Tab PO SCH (08:55)
[2017-02-22] MEDS: Enoxaparin 40 mg Syringe SC SCH (08:56)
--- NOTE | 2017-02-22 12:30 | CP.PCM.PN ---
Subjective - Date & Time of Evaluation Date of Evaluation: 02/22/17 Time of Evaluation: 12:15 - Subjective Subjective: Hospitalist Progress Note (Patient was seen and examined at 12:15 PM 02/22/17 668 -2) 81 year old male (PMHx of Dementia, Bipolar Disorder, DM 2, HTN, Parkinson's Disease, Gout) was admitted on 01/30/17 for further evaluation after he was found on the floor at his residence (where he lives by himself) by his ex- after he had fallen off his recliner. Patient stated that there was NO loss of consciousness and he has been experiencing nonradiating low back pain. CT Lumbar Spine 01/30/17 showed degenerative changes. Chest X Ray 01/30/17 showed Right Upper Lung zone 3mm nodule. He had elevated Lactic Acid upon admission but this normalized by 01/31/17. He had elevated CPK 419 but this decreased to 343 with administration of IVF and normalized by 02/02/17. He had Leukocytosis but this also has normalized. CT Head 02/01/17 showed NO intracranial hemorrhage , nonspecific white matter changes, stable left mastoid opacifications, moderate atrophy, right parietal encephalomalacia, and atherosclerosis of intracranial arteries. Patient was evaluated by Psychiatry Dr. Abreu on and it was determined that patient did not require Acute Psychiatry Admission but that patient may require terminal clerk placement since he lives by himself and can not take care of self. Patient was referred for placement but he wanted to go home. Patient was deemed to be able to make decisions concerning his placement. This was discussed with pt's daughter who agreed to take patient home as patient was refusing placement. Home Health Care ([facility]) arranged prior to pt's discharge on 02/13/17. Patient was readmitted to [facility] on 02/26/17 after he was found to be roaming the streets naked. He was found to be dehydrated and IVF were given. Psychiatry was reconsulted and patient did not require in-patient Psychiatry Admission and was deemed to be able to make the decision of whether he wants to be admitted to a Care Home for terminal clerk care and at the time of my exam on 02/19/17, patient stated that he just wants to go home. I spoke with my colleauge Dr. Harden on the night of 02/18/17, and she informed me that the local police were at the patient' s home and that as per Social Workers Connie and Sameera Adult Protective Services will be contacted when patient is ready for discharge. I spoke with Psychiatrist Dr. Abreu and patient does not require in-patient psychiatric admission and he is able to make decision concerning where he wants to go. I spoke with patient's Daughter Coleen [phone] via phone 02/19/17 and I expressed to her that I did not feel that the patient could be safely discharged back to his home. Coleen explained to me that she spoke with Adult Protective Services Miguelina Josesitovilma [phone], who is the agent assigned to the patient, and Coleen stated that Ms. Gonzalez will be seeing the patient on Wednesday02/22/17 at [facility]. I also called Ms. Sommer and left a voicemail 02/19/17 asking her to call me on my cell. Coleen is also trying to contact her brother to see if a Medical Power of Audio Visual Director Paperwork was ever completed for patient by them and if so will contact [facility] Med/Surg and she was provided with this unit's phone number. I believe that the patient is unsafe for discharge to his house considering his history (as explained above). 02/22/17: I spoke with Adult Protective Services Miguelinazee Bellamyvilma [phone] who stated that she was not going to be seeing the patient here in the hospitalist (she did not express this to Daughter Coleen as Coleen stated to me). She explained that she could not evaluate the patient at his home as on the date that she went there, patient was readmitted to the hospital. She also stated that from her review of this patient's history, he would be an unsafe discharge to home and if APS goes to his home and they feel this way they would call EMS and have the patient brought back to the hospital. I spoke to patient's Daughter Coleen [phone] and provided her with 6 Med/Surg so that Medical Power Of Audio Visual Director (that is in possession by her brother) which was located could be faxed over. I updated Sales Clerk Food Amee Mendoza [phone] as well and explained that Sales Clerk Food/Bowling Floor Desk Clerk would have to set up a family meeting with patient to determine what their wishes are as terminal clerk placement for this patient is recommended. ROS: NO chest pain, NO palpitations, NO SOB/Cough/Wheezing, NO dysphagia/odynophagia , NO abdominal pain, NO n/v/d/c, NO burning/pain with urination, NO lightheadedness/dizziness, NO new changes in vision/eye pain, NO new changes in hearing/ear pain, NO paresthesias, NO edema General: AAOx3, NAD HEENT: NCA, PERRLA, EOMI, NO cervical lymphadenopathy, NO thyromegaly, NO Pharyngeal erythema/exudate Cardio: NS1 and NS2, NO M/R/G Respiratory: CTA B/L, NO R/R/W GI: BSx4, Soft, NT, ND, NO HSM, NO guarding/rebound tenderness Ext: NO edema, Pulses are strong and equal, Capillary refill is 2 seconds Neuro: CN II through XII are grossly intact Assessment and Plan: 1). Altered Mental Status Secondary to Dehydration Resolved BUN/Cr has now normalized 2). DM 2 Lispro ISS Metformin 850 mg PO 1x/day Glucotrol 5 mg PO 1x/day 3). HTN Valsartan 160 mg PO 1x/day Norvasc 10 mg PO 1x/day Toprol XL 50 mg PO 1x/day 4). HLD Lipitor 20 mg PO QHS 5). Bipolar Disorder Seroquel 100 mg PO QHS Trazodone 50 mg PO QHS 6). Parkinson's Disease/Dementia Rivastigmine 1 Patch TD 1x/day Sinemet 1 tab PO 4x/day Depakote 250 mg PO 2x/day 7). Gout Allopurinol 100 mg PO 1x/day Colcrys 0.6 mg PO 1x/day 8). BPH Flomax 0.4 mg PO 1x/day 9). Prophylactic Measures ASA 81 mg PO 1x/day Pepcid 20 mg PO QHS Lovenox 40 mg SQ 1x/day Objective - Vital Signs/Intake and Output Vital Signs (last 24 hours): Temp Pulse Resp BP Pulse Ox 98.2 F 73 18 147/82 96 02/22/17 09:01 02/22/17 09:01 02/22/17 09:01 02/22/17 09:01 02/22/17 09:01 - Medications Medications: Current Medications Acetaminophen (Tylenol 325mg Tab) 650 mg PO Q6 PRN PRN Reason: Pain, moderate (4-7) Last Admin: 02/20/17 09:45 Dose: 650 mg Allopurinol (Zyloprim) 100 mg PO DAILY [facility] Last Admin: 02/22/17 08:55 Dose: 100 mg Amlodipine Besylate (Norvasc) 10 mg PO DAILY@2100 [facility] Last Admin: 02/21/17 21:38 Dose: 10 mg Aspirin (Ecotrin) 81 mg PO DAILY [facility] Last Admin: 02/22/17 08:55 Dose: 81 mg Atorvastatin Calcium (Lipitor) 20 mg PO HS [facility] Last Admin: 02/21/17 21:38 Dose: 20 mg Carbidopa/Levodopa (Sinemet) 1 tab PO QID [facility] Last Admin: 02/22/17 08:55 Dose: 1 tab Colchicine (Colocrys) 0.6 mg PO DAILY [facility] Last Admin: 02/22/17 08:55 Dose: 0.6 mg Divalproex Sodium (Depakote Dr(*Bid*)) 250 mg PO BID [facility] Last Admin: 02/22/17 08:54 Dose: 250 mg Glipizide (Glucotrol Xl) 5 mg PO DAILY [facility] Last Admin: 02/22/17 08:54 Dose: 5 mg Sodium Chloride (Sodium Chloride 0.9%) 1,000 mls @ 125 mls/hr IV .Q8H [facility] Last Admin: 02/22/17 06:33 Dose: Not Given Insulin Human Lispro (Humalog) 0 units SC ACHS [facility] PRN Reason: Protocol Last Admin: 02/22/17 08:01 Dose: Not Given Magnesium Hydroxide (Milk Of Magnesia) 5 ml PO QID PRN PRN Reason: Indigestion Last Admin: 02/20/17 18:51 Dose: 5 ml Metformin HCl (Glucophage) 850 mg PO DAILY [facility] Last Admin: 02/22/17 08:54 Dose: 850 mg Metoprolol Succinate (Toprol Xl) 50 mg PO DAILY [facility] Last Admin: 02/22/17 08:55 Dose: 50 mg Quetiapine Fumarate (Seroquel) 100 mg PO HS [facility] Last Admin: 02/21/17 21:38 Dose: 100 mg Rivastigmine (Exelon 9.5 Mg/24 Hr Patch) 1 patch TD DAILY [facility] Last Admin: 02/22/17 08:56 Dose: 1 patch Tamsulosin HCl (Flomax) 0.4 mg PO DAILY [facility] Last Admin: 02/22/17 08:54 Dose: 0.4 mg Trazodone HCl (Desyrel) 50 mg PO HS [facility] Last Admin: 02/21/17 21:37 Dose: 50 mg Valsartan (Diovan) 160 mg PO DAILY [facility] Last Admin: 02/22/17 08:55 Dose: 160 mg
[2017-02-22 20:24] VITALS: RESP 20
[2017-02-23] MEDS: Sodium Chloride 0.9% 1,000 ML IV SCH ×2 (06:00→17:24)
[2017-02-23] MEDS: Insulin Lispro (humaLOG) 100 Units/ml Inj SC SCH ×4 (06:33→21:27)
[2017-02-23] MEDS: Divalproex 250 mg DR(BID formulation) PO SCH ×2 (09:04→17:21)
[2017-02-23] MEDS: GlipiZIDE 5 mg SR Tab PO SCH (09:05)
[2017-02-23] MEDS: Enoxaparin 40 mg Syringe SC SCH (09:07)
[2017-02-23] MEDS: Metoprolol Succinate 50 mg XL Tab PO SCH (09:08)
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
[2017-02-24] MEDS: Sodium Chloride 0.9% 1,000 ML IV SCH ×2 (01:40→21:51)
[2017-02-24] MEDS: Insulin Lispro (humaLOG) 100 Units/ml Inj SC SCH ×4 (07:16→21:51)
[2017-02-24] MEDS: Divalproex 250 mg DR(BID formulation) PO SCH ×2 (09:36→17:16)
[2017-02-24] MEDS: GlipiZIDE 5 mg SR Tab PO SCH (09:38)
[2017-02-24] MEDS: Enoxaparin 40 mg Syringe SC SCH (09:39)
[2017-02-24] MEDS: Metoprolol Succinate 50 mg XL Tab PO SCH (09:39)
--- NOTE | 2017-02-24 14:17 | CP.PCM.PN ---
Subjective - Date & Time of Evaluation Date of Evaluation: 02/24/17 Time of Evaluation: 11:45 - Subjective Subjective: No fever Denies CP no SOB no abd pain Pt noted to be very manic , constantly walking around the 6th floor, speaking to people passing by. Son faxed copy of GIOVANNI working on placement Objective - Vital Signs/Intake and Output Vital Signs (last 24 hours): Temp Pulse Resp BP Pulse Ox 97.7 F 76 20 133/78 100 02/24/17 08:18 02/24/17 09:39 02/24/17 08:18 02/24/17 09:39 02/24/17 08:18 - Medications Medications: Current Medications Acetaminophen (Tylenol 325mg Tab) 650 mg PO Q6 PRN PRN Reason: Pain, moderate (4-7) Last Admin: 02/24/17 06:15 Dose: 650 mg Allopurinol (Zyloprim) 100 mg PO DAILY [facility] Last Admin: 02/24/17 09:38 Dose: 100 mg Amlodipine Besylate (Norvasc) 10 mg PO DAILY@2100 [facility] Last Admin: 02/23/17 21:28 Dose: 10 mg Aspirin (Ecotrin) 81 mg PO DAILY [facility] Last Admin: 02/24/17 09:38 Dose: 81 mg Atorvastatin Calcium (Lipitor) 20 mg PO HS [facility] Last Admin: 02/23/17 21:29 Dose: 20 mg Carbidopa/Levodopa (Sinemet) 1 tab PO QID [facility] Last Admin: 02/24/17 12:47 Dose: 1 tab Colchicine (Colocrys) 0.6 mg PO DAILY [facility] Last Admin: 02/24/17 09:36 Dose: 0.6 mg Divalproex Sodium (Depakote Dr(*Bid*)) 250 mg PO BID [facility] Last Admin: 02/24/17 09:36 Dose: 250 mg Enoxaparin Sodium (Lovenox) 40 mg SC DAILY [facility] PRN Reason: Protocol Last Admin: 02/24/17 09:39 Dose: 40 mg Glipizide (Glucotrol Xl) 5 mg PO DAILY [facility] Last Admin: 02/24/17 09:38 Dose: 5 mg Sodium Chloride (Sodium Chloride 0.9%) 1,000 mls @ 125 mls/hr IV .Q8H [facility] Last Admin: 02/24/17 01:40 Dose: Not Given Insulin Human Lispro (Humalog) 0 units SC ACHS [facility] PRN Reason: Protocol Last Admin: 02/24/17 11:30 Dose: 2 units Magnesium Hydroxide (Milk Of Magnesia) 5 ml PO QID PRN PRN Reason: Indigestion Last Admin: 02/20/17 18:51 Dose: 5 ml Metformin HCl (Glucophage) 850 mg PO DAILY [facility] Last Admin: 02/24/17 09:37 Dose: 850 mg Metoprolol Succinate (Toprol Xl) 50 mg PO DAILY [facility] Last Admin: 02/24/17 09:39 Dose: 50 mg Quetiapine Fumarate (Seroquel) 100 mg PO [facility] Last Admin: 02/23/17 21:29 Dose: 100 mg Rivastigmine (Exelon 9.5 Mg/24 Hr Patch) 1 patch TD DAILY [facility] Last Admin: 02/24/17 09:36 Dose: 1 patch Tamsulosin HCl (Flomax) 0.4 mg PO DAILY [facility] Last Admin: 02/24/17 09:39 Dose: 0.4 mg Trazodone HCl (Desyrel) 50 mg PO [facility] Last Admin: 02/23/17 21:28 Dose: 50 mg Valsartan (Diovan) 160 mg PO DAILY [facility] Last Admin: 02/24/17 09:37 Dose: 160 mg - Labs Labs: - Constitutional Appears: No Acute Distress - Head Exam Head Exam: NORMAL INSPECTION, NORMOCEPHALIC - Eye Exam Eye Exam: EOMI Pupil Exam: NORMAL ACCOMODATION - ENT Exam ENT Exam: Mucous Membranes Moist, Normal External Ear Exam - Neck Exam Neck Exam: Full ROM. absent: Meningismus - Respiratory Exam Respiratory Exam: NORMAL BREATHING PATTERN. absent: Respiratory Distress - Cardiovascular Exam Cardiovascular Exam: REGULAR RHYTHM, +S1, +S2 - GI/Abdominal Exam GI & Abdominal Exam: Soft, Normal Bowel Sounds. absent: Tenderness - Extremities Exam Extremities Exam: Full ROM, Normal Capillary Refill. absent: Calf Tenderness - Back Exam Back Exam: absent: CVA tenderness (L), CVA tenderness (R), paraspinal tenderness , vertebral tenderness - Neurological Exam Neurological Exam: Alert, Awake Additional comments: oriented to person and place - Psychiatric Exam Psychiatric exam: Flight of ideas, very manic today, walking around the nurses unit - Skin Skin Exam: Dry, Normal Color, Warm Assessment and Plan - Assessment and Plan (Free Text) Assessment: Patient was readmitted to [facility] on 02/26/17 after he was found to be roaming the streets naked. Police went to his home and found the home in total disarray. He was found to be dehydrated and IVF given. 1). Altered Mental Status Secondary to Dehydration Resolved BUN/Cr has now normalized 2). DM 2 Lispro ISS Metformin 850 mg PO 1x/day Glucotrol 5 mg PO 1x/day 3). HTN, controlled Valsartan 160 mg PO 1x/day Norvasc 10 mg PO 1x/day Toprol XL 50 mg PO 1x/day 4). HLD Lipitor 20 mg PO QHS 5). Bipolar Disorder Psych consulted : Dr Abreu- no need for Inpatient Psych admission Seroquel 100 mg PO QHS Trazodone 50 mg PO QHS Pt has poor insight and judgement and unsafe for discharge back home and in my opinion lacks informed decision making capacity. 6). Parkinson's Disease/Dementia Rivastigmine 1 Patch TD 1x/day Sinemet 1 tab PO 4x/day Depakote 250 mg PO 2x/day 7). Gout Allopurinol 100 mg PO 1x/day Colcrys 0.6 mg PO 1x/day 8). BPH Flomax 0.4 mg PO 1x/day 9). Prophylactic Measures ASA 81 mg PO 1x/day Pepcid 20 mg PO QHS Lovenox 40 mg SQ 1x/day
[2017-02-24 17:28] VITALS: O2SAT 99
[2017-02-25] MEDS: Sodium Chloride 0.9% 1,000 ML IV SCH (05:41)
[2017-02-25] MEDS: Insulin Lispro (humaLOG) 100 Units/ml Inj SC SCH ×2 (06:30→10:44)
[2017-02-25 08:07] VITALS: PULSE 75; TEMP 97.7
[2017-02-25] MEDS: Divalproex 250 mg DR(BID formulation) PO SCH (10:21)
[2017-02-25] MEDS: GlipiZIDE 5 mg SR Tab PO SCH (10:22)
[2017-02-25] MEDS: Enoxaparin 40 mg Syringe SC SCH (10:23)
[2017-02-25] MEDS: Metoprolol Succinate 50 mg XL Tab PO SCH (10:33)
[2017-02-25 10:34] VITALS: BP 169/76
--- NOTE | 2017-02-25 13:05 | CP.PCM.DIS ---
Provider - Provider Date of Admission: 02/19/17 14:05 Attending physician: Evelio Irene MD Consults: Psychiatry Dr. Abreu Time Spent in preparation of Discharge (in minutes): 40 Hospital Course - Lab Results Lab Results: Most Recent Lab Values WBC 9.2 K/uL (4.8-10.8) 02/17/17 17:30 RBC 4.57 Mil/uL (4.40-5.90) 02/17/17 17:30 Hgb 13.3 g/dL (12.0-18.0) 02/17/17 17:30 Hct 41.4 % (35.0-51.0) 02/17/17 17:30 MCV 90.6 fl (80.0-94.0) 02/17/17 17:30 MCH 29.1 pg (27.0-31.0) 02/17/17 17:30 MCHC 32.1 g/dL (33.0-37.0) L 02/17/17:30 RDW 15.0 % (11.5-14.5) H 02/17/17 17:30 Plt Count 304 K/uL (130-400) 02/17/17 17:30 MPV 8.9 fl (7.2-11.7) 02/17/17 17:30 Neut % (Auto) 80.9 % (50.0-75.0) H 02/17/17 17:30 Lymph % (Auto) 9.5 % (20.0-40.0) L 02/17/17:30 Cecil % (Auto) 8.5 % (0.0-10.0) 02/17/17 17:30 Eos % (Auto) 0.1 % (0.0-4.0) 02/17/17 17:30 Baso % (Auto) 1.0 % (0.0-2.0) 02/17/17:30 Neut # 7.4 K/uL (1.8-7.0) H 02/17/17 17:30 Lymph # 0.9 K/uL (1.0-4.3) L 02/17/17 17:30 Cecil # 0.8 K/uL (0.0-0.8) 02/17/17 17:30 Eos # 0.0 K/uL (0.0-0.7) 02/17/17 17:30 Baso # 0.1 K/uL (0.0-0.2) 02/17/17 17:30 Neutrophils % (Manual) 82 % (42-75) H 02/17/17 17:30 Lymphocytes % (Manual) 10 % (20-50) L 02/17/17 17:30 Monocytes % (Manual) 8 % (0-10) 02/17/17 17:30 Platelet Estimate Normal (NORMAL) 02/17/17 17:30 Anisocytosis (manual) Slight 02/17/17 17:30 Sodium 146 mmol/l (132-148) 02/19/17 09:34 Potassium 4.1 MMOL/L (3.6-5.0) 02/19/17 09:34 Chloride 102 mmol/L (98-107) 02/19/17 09:34 Carbon Dioxide 30 mmol/L (22-30) 02/19/17 09:34 Anion Gap 18 (10-20) 02/19/17 09:34 BUN 18 mg/dl (9-20) 02/19/17 09:34 Creatinine 0.7 mg/dL (0.8-1.5) L 02/19/17 09:34 Est GFR ( Amer) > 60 02/19/17 09:34 Est GFR (Non-Af Amer) > 60 02/19/17 09:34 POC Glucose (mg/dL) 290 mg/dL (65-110) H 02/25/17 10:42 Random Glucose 101 mg/dL (75-110) 02/19/17 09:34 Calcium 8.8 mg/dL (8.4-10.2) 02/19/17 09:34 Total Bilirubin 0.4 mg/dl (0.2-1.3) 02/19/17 09:34 AST 28 U/L (17-59) 02/19/17 09:34 ALT 35 U/L (21-72) 02/19/17 09:34 Alkaline Phosphatase 93 U/L (38-126) 02/19/17 09:34 Total Creatine Kinase 185 U/L (55-170) H 02/17/17 17:30 Troponin I 0.0230 ng/mL (0.00-0.120) 02/17/17 17:30 Total Protein 6.8 G/DL (6.3-8.2) 02/19/17 09:34 Albumin 3.1 g/dL (3.5-5.0) L 02/19/17 09:34 Globulin 3.7 gm/dL (2.2-3.9) 02/19/17 09:34 Albumin/Globulin Ratio 0.8 (1.0-2.1) L 02/19/17 09:34 Urine Opiates Screen Negative (NEGATIVE) 02/19/17 01:30 Urine Methadone Screen Negative (NEGATIVE) 02/19/17 01:30 Ur Barbiturates Screen Negative (NEGATIVE) 02/19/17 01:30 Ur Phencyclidine Scrn Negative (NEGATIVE) 02/19/17 01:30 Ur Amphetamines Screen Negative (NEGATIVE) 02/19/17 01:30 U Benzodiazepines Scrn Negative (NEGATIVE) 02/19/17 01:30 U Oth Cocaine Metabols Negative (NEGATIVE) 02/19/17 01:30 U Cannabinoids Screen Negative (NEGATIVE) 02/19/17 01:30 Alcohol, Quantitative < 10 mg/dl (0-10) 02/17/17 17:30 - Hospital Course Hospital Course: 81 year old male (PMHx of Dementia, Bipolar Disorder, DM 2, HTN, Parkinson's Disease, Gout) was admitted on 01/30/17 for further evaluation after he was found on the floor at his residence (where he lives by himself) by his ex- after he had fallen off his recliner. Patient stated that there was NO loss of consciousness and he has been experiencing nonradiating low back pain. CT Lumbar Spine 01/30/17 showed degenerative changes. Chest X Ray 01/30/17 showed Right Upper Lung zone 3mm nodule. He had elevated Lactic Acid upon admission but this normalized by 01/31/17. He had elevated CPK 419 but this decreased to 343 with administration of IVF and normalized by 02/02/17. He had Leukocytosis but this also has normalized. CT Head 02/01/17 showed NO intracranial hemorrhage , nonspecific white matter changes, stable left mastoid opacifications, moderate atrophy, right parietal encephalomalacia, and atherosclerosis of intracranial arteries. Patient was evaluated by Psychiatry Dr. Abreu on and it was determined that patient did not require Acute Psychiatry Admission but that patient may require longterm placement since he lives by himself and can not take care of self. Patient was referred for placement but he wanted to go home. Patient was deemed to be able to make decisions concerning his placement. This was discussed with pt's daughter who agreed to take patient home as patient was refusing placement. Home Health Care ([facility]) arranged prior to pt's discharge on 02/13/17. Patient was readmitted to [facility] on 02/26/17 after he was found to be roaming the streets naked. He was found to be dehydrated and IVF were given. Psychiatry was reconsulted and patient did not require in-patient Psychiatry Admission and was deemed to be able to make the decision of whether he wants to be admitted to a Long Term for adjunct faculty for medical terminology care and at the time of my exam on 02/19/17, patient stated that he just wants to go home. I spoke with my colleauge Dr. Harden on the night of 02/18/17, and she informed me that the local police were at the patient' s home and that as per Social Workers Connie and Sameera Adult Protective Services will be contacted when patient is ready for discharge. I spoke with Psychiatrist Dr. Abreu and patient does not require in-patient psychiatric admission and he is able to make decision concerning where he wants to go at the time of her exam. I spoke with patient's Daughter Coleen [phone] via phone 02/19/17 and I expressed to her that I did not feel that the patient could be safely discharged back to his home. Coleen explained to me that she spoke with Adult Protective Services Miguelina Sommer [phone], who is the agent assigned to the patient, and Coleen stated that Ms. Gonzalez will be seeing the patient on Wednesday02/22/17 at [facility]. I also called Ms. Sommer and left a voicemail 02/19/17 asking her to call me on my cell. Coleen is also trying to contact her brother to see if a Medical Power of Master Yacht Paperwork was ever completed for patient by them and if so will contact [address] [place] [address]/Surg and she was provided with this unit's phone number. I believe that the patient is unsafe for discharge to his house considering his history (as explained above). 02/22/17: I spoke with Adult Protective Services Miguelina Sommer [phone] who stated that she was not going to be seeing the patient here in the hospitalist (she did not express this to Daughter Coleen as Coleen stated to me). She explained that she could not evaluate the patient at his home as on the date that she went there, patient was readmitted to the hospital. She also stated that from her review of this patient's history, he would be an unsafe discharge to home and if APS goes to his home and they feel this way they would call EMS and have the patient brought back to the hospital. I spoke to patient's Daughter Coleen [phone] and provided her with 6 Med/Surg so that Medical Power Of Master Yacht (that is in possession by her brother) which was located could be faxed over. I updated Digital Art Director Amee Ext [phone] as well and explained that Digital Art Director/Banquet Waiter/Waitress would have to set up a family meeting with patient to determine what their wishes are as adjunct faculty for medical terminology placement for this patient is recommended. 02/25/17 Patient was seen and examined at 12:30 PM. Explained to him that he would be transferred to [facility] for further care and that his Duaghter Coleen would be seeing him there tomorrow 02/26/17 I spoke with my colleague Hospitalist Dr. Harden on night of 02/24/17 and she too believes (as I do) that patient does not have the capacity to make decisions that would allow him to care for himself safely at home. POA faxed to the floor on 02/22/17 Digital Art Director Amee has arranged for transportation of patient to the [facility] at 3 PM today. Please see individual Assessments below for their respective Plans and the medications that should be continued at [facility]. ROS: NO chest pain, NO palpitations, NO SOB/Cough/Wheezing, NO dysphagia/odynophagia , NO abdominal pain, NO n/v/d/c, NO burning/pain with urination, NO lightheadedness/dizziness, NO new changes in vision/eye pain, NO new changes in hearing/ear pain, NO paresthesias, NO edema General: AAOx3, NAD HEENT: NCA, PERRLA, EOMI, NO cervical lymphadenopathy, NO thyromegaly, NO Pharyngeal erythema/exudate Cardio: NS1 and NS2, NO M/R/G Respiratory: CTA B/L, NO R/R/W GI: BSx4, Soft, NT, ND, NO HSM, NO guarding/rebound tenderness Ext: NO edema, Pulses are strong and equal, Capillary refill is 2 seconds Neuro: CN II through XII are grossly intact Assessment and Plan: 1). Altered Mental Status Secondary to Dehydration Resolved BUN/Cr has now normalized 2). DM 2 Lispro ISS Metformin 850 mg PO 1x/day Glucotrol 5 mg PO 1x/day 3). HTN Valsartan 160 mg PO 1x/day Norvasc 10 mg PO 1x/day Toprol XL 50 mg PO 1x/day 4). HLD Lipitor 20 mg PO QHS 5). Bipolar Disorder Seroquel 100 mg PO QHS Trazodone 50 mg PO QHS 6). Parkinson's Disease/Dementia Rivastigmine 1 Patch TD 1x/day Sinemet 1 tab PO 4x/day Depakote 250 mg PO 2x/day 7). Gout Allopurinol 100 mg PO 1x/day Colcrys 0.6 mg PO 1x/day 8). BPH Flomax 0.4 mg PO 1x/day 9). Prophylactic Measures ASA 81 mg PO 1x/day Pepcid 20 mg PO QHS Lovenox 40 mg SQ 1x/day Evelio Irene D.O. Discharge Exam - Head Exam Head Exam: NORMAL INSPECTION, NORMOCEPHALIC Discharge Plan - Follow Up Plan Condition: GOOD Disposition: HOME/ ROUTINE Instructions: Dehydration (DC), Altered Mental Status (GEN), Hypertension (DC) , Hypertension (GEN)
== END 2017-02-25 15:19 | DRG 641 ==
LOC: EDBD → H.ER 15:14 → H.ERHOLD 19:25 → H.MEDSURG1 22:30 → OBSVTOIN 02-19 14:05
PROVIDERS: ADMIT Family Medicine; ATTEND Family Medicine
DX: E86.0 Dehydration (principal); E11.65 Type 2 diabetes mellitus with hyperglycemia; G20 Parkinson's disease; E78.00 Pure hypercholesterolemia, unspecified; E78.5 Hyperlipidemia, unspecified; F31.9 Bipolar disorder, unspecified; Z91.83 Wandering in diseases classified elsewhere; F02.80 Dementia in other diseases classified elsewhere, unspecified severity, without behavioral disturbance, psychotic disturbance, mood disturbance, and anxiety; I10 Essential (primary) hypertension; M10.9 Gout, unspecified; N40.0 Benign prostatic hyperplasia without lower urinary tract symptoms; F41.9 Anxiety disorder, unspecified; R91.1 Solitary pulmonary nodule

== ENCOUNTER 2017-10-04 08:27 | Day surgery (SDC) | payer MEDICARE ==
[2017-10-04 09:07] VITALS: BMI 26.3
[2017-10-04] MEDS ORDERED: Lactated Ringer's 1,000 ML IV ONE (09:46)
[2017-10-04] MEDS ORDERED: Etomidate 20 mg/10ml Inj IV ONE (11:32)
[2017-10-04] MEDS ORDERED: Midazolam 2 MG/2 ML VIAL ONE (11:32)
[2017-10-04] MEDS ORDERED: Lidocaine 4% (Laryng-O-Jet) Kit MM ONE (11:32)
[2017-10-04] MEDS ORDERED: Succinylcholine 200 mg/10 ml Inj IV ONE ×2 (11:32→11:37)
[2017-10-04] MEDS ORDERED: Bupivacaine 0.5% Inj(30mL) ONE (11:52)
[2017-10-04] MEDS ORDERED: cefTRIAXone IV 1 gm in Dextros 50 ML IVPB ONE (11:52)
[2017-10-04] MEDS ORDERED: cefTRIAXone (Rocephin) 1 gm Inj IVPB ONE (12:09)
[2017-10-04] MEDS ORDERED: Bupivacaine 0.5% 50 ML IJ ONE (12:15)
[2017-10-04] MEDS ORDERED: ePHEDrine 50 mg/ml Inj ONE (12:23)
[2017-10-04] MEDS ORDERED: HYDROmorphone 0.5 mg/0.5 ml ISec IVP PRN (12:58)
[2017-10-04 13:54] VITALS: RESP 20
--- NOTE | 2017-10-04 15:07 | OP ---
PROCEDURE DATE: 10/04/2017 PREOPERATIVE DIAGNOSIS: Right hydrocele. POSTOPERATIVE DIAGNOSIS: Right hydrocele. PROCEDURE PERFORMED: Right hydrocelectomy. DESCRIPTION OF PROCEDURE: Patient was placed on the operating room table in a supine position. The area of the groin was draped and prepped in a sterile manner. He was given general anesthesia. At this time, I injected 10 mL of Marcaine, 0.5% for local anesthetic effect. I made an incision into the right hemiscrotum, delivered the testicle and hydrocele into the operative field. I made an incision and drained very little, but fluid from the hydrocele sac. I enucleated the sac. At this time, sent a pea portion for specimen analysis and then I oversew the edges with 3-0 locking chromic suture. Once this was done, I replaced the testicle back into the scrotal cavity. There was minimal bleeding that was cauterized and then I did a 2-layer closure with 3-0 chromic suture. Once this was done, a Tegaderm injection was placed over the wound site. I estimated blood loss to be less than 10 mL. Patient was taken from the operating room in good condition. Kai Day MD
[2017-10-04 16:08] VITALS: BP 157/85; PULSE 74; TEMP 98.8; O2SAT 95
[2017-10-04] MEDS ORDERED: Lidocaine 2% Inj (20ml) SC ONE (18:00)
== END 2017-10-04 18:30 ==
LOC: H.OPSURG 08:27 → EDBD 08:27 → H.OPSURG 18:30
PROVIDERS: ATTEND Urology
DX: N43.3 Hydrocele, unspecified (principal); E11.9 Type 2 diabetes mellitus without complications; E78.5 Hyperlipidemia, unspecified; I10 Essential (primary) hypertension
CPT/HCPCS: 55040; 82948; 88302; J0330; J0696; J2001; J2250; J3010; J7030; J7120

== ENCOUNTER 2017-10-25 07:58 | Day surgery (SDC) | payer MEDICARE ==
[2017-10-25 09:04] VITALS: BMI 28.2
[2017-10-25] MEDS ORDERED: Metoprolol Succinate 50 mg XL Tab PO STA (09:04)
[2017-10-25 09:08] VITALS: RESP 18
[2017-10-25] MEDS ORDERED: Metoprolol Succinate 50 mg XL Tab PO ONE (09:38)
[2017-10-25] MEDS ORDERED: Lidocaine 1% Inj (20ml) ONE (10:22)
[2017-10-25] MEDS ORDERED: cefTRIAXone IV 1 gm in Dextros 50 ML IVPB ONE (10:22)
[2017-10-25] MEDS ORDERED: Lactated Ringer's 1,000 ML IV ONE (10:30)
[2017-10-25] MEDS ORDERED: Propofol 10 mg/ml Inj (20 ML) ONE (10:33)
[2017-10-25] MEDS ORDERED: Midazolam 2 MG/2 ML VIAL ONE (10:33)
[2017-10-25] MEDS ORDERED: cefTRIAXone (Rocephin) 1 gm Inj IM ONE (10:50)
[2017-10-25] MEDS ORDERED: Lidocaine Hydrochloride 5 ML INJ ONE (10:53)
[2017-10-25] MEDS ORDERED: Lidocaine 1% Inj (20ml) IJ ONE (10:55)
[2017-10-25] MEDS ORDERED: HYDROmorphone 0.5 mg/0.5 ml ISec IVP PRN (11:44)
[2017-10-25] MEDS ORDERED: Lactated Ringer's 1,000 ML IV SCH (11:45)
--- NOTE | 2017-10-25 12:15 | OP ---
PROCEDURE DATE: 10/25/2017 PREOPERATIVE DIAGNOSIS: Phimosis. POSTOPERATIVE DIAGNOSIS: Phimosis. PROCEDURE PERFORMED: Circumcision. DESCRIPTION OF PROCEDURE: Under general anesthesia, the patient was placed on the operating room table in a supine position. The area of the groin was draped and prepped in a sterile manner. Using circumferential incisions, I removed the redundant foreskin that was clearly identified. Once the foreskin was removed, I cauterized amply all the small venous bleedings that were there and all bleeding at that point was stopped. At this time, I approximated the skin edges with multiple interrupted 4-0 Chromic sutures. At the end of the procedure, the wound site was cleaned and then I placed over a Xeroform gauze dressing, a Coban compressive dressing and then the patient was taken from the operating room in good condition. The blood loss was less than 3 mL, it was actually minimal to none. The patient then again was taken to recovery at this time. Kai Day MD
[2017-10-25 13:03] VITALS: TEMP 98.1
[2017-10-25 13:42] VITALS: BP 131/83; PULSE 61; O2SAT 97
== END 2017-10-25 14:10 ==
LOC: H.OPSURG 07:58
PROVIDERS: ATTEND Urology
DX: N47.1 Phimosis (principal); E11.9 Type 2 diabetes mellitus without complications; I10 Essential (primary) hypertension
CPT/HCPCS: 54161; 82948; 88304; J0696; J2001; J2250; J2704; J3010; J7120